=== PATIENT | male | born 1960 | race Caucasian/White ===

== ENCOUNTER 2017-07-05 13:32 | Emergency (ER) | payer OTHER, MEDICARE ==
[~2017-07-05] VITALS: Ht 172.7 cm; Wt 131.5 kg
[~2017-07-05 13:32] MED LIST: AMLODIPINE-VALS1 TA1 PO; AMOXIL500 MG PO; AUGMENTIN 875 M1 TAB PO; CHERATUSSIN AC120 ML PO; CRESTOR20 M2 PO; CYCLOBENZAPRINE10 M1 PO; DILAUDID2 MG PO; DUONEB 3 MG/3 ML3 ML INH/SOL; ELIQUIS5 M1 PO; FENOFIBRATE160 M1 PO; FLEXERIL10 MG PO; KEFLEX500 MG PO; LANTUS100 U/ML SC; LASIX20 MG PO; LEVEMIR FL100 UNIT/1 SC; LOVAZA1 G1 PO; LYRICA100 M1 PO; NIASPAN1000 M1 PO; NORCO 325 MG-51 TAB PO; NORFLEX100 MG PO; PERCOCET 325 MG1 TAB PO; PERCOCET 5-3251 EACH PO; VICODIN5-300 PO; WARFARIN SODIUM1 MG PO; ZOFRAN ODT4 M1 PO; ZOFRAN ODT4 MG SL
[2017-07-05 13:36] VITALS: BP 125/80
--- NOTE | 2017-07-05 14:43 | RADIOLOGY REPORT ---
EXAMINATION: XR SHOULDER, LEFT CLINICAL INFORMATION: Left shoulder pain status post injury. COMPARISON: None TECHNIQUE: AP internal rotation, Grashey, and scapular Y views (4 images) of the left shoulder. FINDINGS: No fracture is identified. There are marginal osteophytes involving the glenohumeral joint, most prominent at the inferomedial humeral head. There is moderate inferior subluxation of the humeral head which may be related to capsular laxity and possibly muscle weakness. The visualized muscles do appear to be atrophied. This can also be related to a significant joint effusion but there is no evidence to suggest an effusion. There are mild degenerative changes of the acromioclavicular joint. IMPRESSION: No acute fracture. 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 Moderate inferior subluxation of the humeral head which may be secondary to capsular laxity and possibly muscle weakness.
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
[2017-07-05] MEDS ORDERED: MOBIC15 M1 PO (15:49)
[2017-08-20] MEDS ORDERED: COLACE100 M1 PO (01:42)
== END 2017-07-05 16:07 ==
LOC: ERH 13:32
DX: M25.512 Pain in left shoulder (principal)
CPT/HCPCS: 73030-LT

== ENCOUNTER 2017-10-07 03:30 | Inpatient (IN) | payer OTHER, MEDICARE ==
[~2017-10-07] VITALS: Ht 172.7 cm; Wt 117.9 kg
[~2017-10-07 03:30] MED LIST changes: +COLACE100 M1 PO; +MOBIC15 M1 PO
[2017-10-07 04:06] LABS: ABSOLUTE BASOPHIL COUNT 0 /CUMM (0.0-0.2); ABSOLUTE EOSINOPHIL COUNT 0 /CUMM (0.0-0.7); ABSOLUTE LYMPH COUNT 1.6 /CUMM (1.2-3.4); ABSOLUTE MONOCYTE COUNT 0.6 /CUMM (0.10-0.60); BASOPHIL % 0.3 % (0.0-2.0); EOSINOPHIL % 0.3 % (0-5); GRANULOCYTE % 80.4 % (42.2-75.2); HEMATOCRIT 29.8 % (42-52); MEAN CORPUSCULAR HGB 28.2 PG (27.0-31.0); MEAN CORPUSCULAR HGB CONC 33.7 G/DL (33.0-37.0); MEAN CORPUSCULAR VOLUME 83.7 FL (80.0-94.0); MEAN PLATELET VOLUME 7.9 FL (7.4-10.4); PLATELET COUNT 298 /CUMM (130-400); RED BLOOD CELL CT 3.56 /CUMM (4.70-6.10); WHITE BLOOD CELL COUNT 11.2 /CUMM (4.8-10.8)
[2017-10-07 04:12] LABS: PT 16.7 SEC (9.4-12.5); PTT 30 SEC (25-37)
--- NOTE | 2017-10-07 04:31 | ED GI/GU/ABDOMINAL COMPLAINT ---
See Addendum History of Present Illness General Chief Complaint: General Adult Stated Complaint: DIARRHEA WITH BLOOD IN STOOL Source: patient, family, old records Exam Limitations: no limitations Vital Signs & Intake/Output Vital Signs & Intake/Output Vital Signs Date Time Temp Pulse Resp B/P B/P Pulse O2 O2 Flow FiO2 Mean Ox Delivery Rate 10/07 0332 98.3 85 18 106/65 99 Room Air Allergies Coded Allergies: morphine (Intermediate, WIERD FEELING 09/23/15) Reconcile Medications AMLODIPINE/VALSARTAN/HCTHIAZID (Sljts-Glvqf-Neni 10-160-25 MG) (Unknown Strength ) TABLET (Unknown Dose) PO DAILY BP (Reported) Apixaban (Eliquis) 5 MG TABLET 1 TAB PO BID BLOOD THINNER (Reported) Docusate Sodium (Colace) 100 MG CAPSULE 1 CAP PO BID constipation FENOFIBRATE NANOCRYSTALLIZED (Fenofibrate) 145 MG TABLET 1 TAB PO DAILY TRIG (Reported) Furosemide (Lasix) 20 MG TAB 1 TAB PO BID PRN LOWER EXTREMITY SWELLING TAKE 1 PILL TWICE A DAY ON THE FIRST DAY, AND THEN ONCE A DAY NEEDED FOR SWELLING OF THE LEGS. Furosemide (Lasix) 20 MG TAB 1 TAB PO DAILY EDEMA HYDROMORPHONE HCL (Dilaudid) 2 MG TABLET 1-2 TAB PO Q6P PRN severe pain HYDROMORPHONE HCL (Dilaudid) 2 MG TABLET 1 TAB PO Q6HR PRN PAIN Insulin Detemir (Levemir Flextouch) 100 UNIT/1 ML INSULN.PEN 35 U SC DAILY DIABETES (Reported) Insulin Glargine, Recombinan (Lantus) 100 U/ML KAREN 22 U SC DAILY DIABETES ( Reported) Meloxicam (Mobic) 15 MG TABLET 1 TAB PO DAILY PRN PAIN Niacin [address] 1 TAB PO DAILY SUPPLEMENT (Reported) Znkpl-3-Mugn Ethyl Esters (Lovaza) 1 GRAM CAPSULE 2 CAP PO BID SUPPLEMENT ( Reported) Ondansetron (Zofran Odt) 4 MG TAB.RAPDIS 1 TAB PO 4 TIMES/DAY PRN NAUSEA Orphenadrine Citrate (Norflex) [address] 1 TAB PO BID PRN BACK PAIN OXYCODONE HCL/ACETAMINOPHEN (Percocet 10-325 MG Tablet) 325 MG/10 MG TAB 1 TAB PO Q8 PRN PAIN Oxycodone HCl/Acetaminophen (Percocet 5-325 MG Tablet) 1 EACH TABLET 1 TAB PO 4 TIMES/DAY PRN PAIN TEN...[id number] Oxycodone HCl/Acetaminophen (Percocet 5-325 MG Tablet) 1 EACH TABLET 1 TAB PO Q6P PRN Severe pain Pregabalin (Lyrica) 100 MG CAPSULE 1 CAP PO TID PAIN (Reported) Rosuvastatin Calcium (Crestor) 40 MG TAB 1 TAB PO DAILY CHOLESTEROL (Reported ) Warfarin Sodium 1 MG TABLET 4 MG PO DAILY BLOOD THINNER (Reported) Triage Note: PT BIBA FROM HOME C/O BLOOD IN STOOL X5 DAYS. PT STATES HE HAD A COLONOSCOPY WITH DR JOYEC 2 WEEKS PRIOR, AFTER D/C'ING BLOOD THINNERS 1 WEEK PRIOR. PT HAD 12 POLYPS REMOVED, FELT CONSTIPATED 1 WEEK LATER STARTED LINZESS AND SINCE THEN HAS HAD 4X EPISODES OF DIARRHEA PER DAY X4 DAYS. UPON ARRIVAL EMS STATED BSG 365, PT MEDICATED WITH 30UNITS OF LEVEMIR AT HOME 2 HRS PRIOR TO ARRIVAL PER PT. PTS VSS. PT STATES "DIZZINESS". Triage Nurses Notes Reviewed? yes Onset: 3 days Duration: day(s):, intermittent Timing: recent history Quality/Severity: moderate Radiation: no radiation Activities at Onset: rest Prior Abdominal Problems: none Past Sexual History: Unobtainable at this time No Modifying Factors: none Associated Symptoms: weakness HPI: 2 weeks prior to admission the patient had a colonoscopy with polyp removal. One day after the procedure he passed bright red blood per rectum and was instructed to stop eliquis until the bleeding stopped. The bleeding stopped 1 week prior to admission and he resumed eliquis. 3 days prior to admission report patient reports 4 episodes per day of bright red blood per rectum without stool. He complains of increasing fatigue and weakness. He denies fever chills nausea vomiting diarrhea abdominal pain chest pain cough shortness breath headache dysuria rash. Past History Travel History Traveled to [place] past 21 day No Medical History Any Pertinent Medical History? 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 No Review of Systems Review of Systems Constitutional: Reports: see HPI, weakness. EENTM: Reports: no symptoms. Respiratory: Reports: no symptoms. Cardiovascular: Reports: no symptoms. GI: Reports: see HPI, bloody stool. Genitourinary: Reports: no symptoms. Musculoskeletal: Reports: no symptoms. Skin: Reports: no symptoms. Neurological/Psychological: Reports: no symptoms. Hematologic/Endocrine: Reports: no symptoms. Immunologic/Allergic: Reports: no symptoms. All Other Systems: Reviewed and Negative Physical Exam Physical Exam General Appearance: well developed/nourished, alert, awake, moderate distress, obese Head: atraumatic, normal appearance Eyes: Bilateral: normal appearance, PERRL, EOMI, other (pale conjunctiva). Ears, Nose, Throat, Mouth: hearing grossly normal, dry mucous membranes Neck: normal inspection, supple, full range of motion, normal alignment Respiratory: normal breath sounds, chest non-tender, no respiratory distress, quiet respiration, lungs clear Cardiovascular: regular rate/rhythm, normal peripheral pulses, norml femoral pulses equa Peripheral Pulses: 4+ carotid (R), 4+ carotid (L) Gastrointestinal: normal bowel sounds, soft, non-tender, no organomegaly Male Genitals: normal genitalia Back: normal inspection, normal range of motion, no vertebral tenderness Extremities: normal range of motion, no ligament instability Neurologic/Psych: awake, alert, oriented x 3, triage nurse II-XII nml as tested, motor/ sensory deficits (;eft upper extremity) Skin: intact, normal color, warm/dry Core Measures ACS in differential dx? No Sepsis Present: No Sepsis Focused Exam Completed? No Progress Differential Diagnosis: gastritis, PUD/GERD, polypectomy site bleeding Plan of Care: Orders Procedure Date/time Status Nothing by Mouth 10/07 B Active CBC WITHOUT DIFFERENTIAL 10/07 1200 Active OXYGEN SETUP (GEN) 10/07 513 Active Saline Lock 10/07 513 Active Activity/Ambulation 10/07 513 Active Code Status 10/07 513 Active Pathway - chart 10/07 512 Active BLOOD PRODUCT PICKUP 10/07 501 Active Lab Add-on Test 10/07 499 Active Patient Data 10/07 0444 Active Add-on Test (ER Only) 10/07 436 Active Admit to inpatient 10/[address] ABD & PELVIS ANGIOGRAM 10/08 431 Active FRESH FROZEN PLASMA 10/07 421 Active GLYCOSYLATED HGB 10/07 344 Active TYPE & SCREEN (NOT X-MATCH) 10/07 344 Complete EKG 10/08 339 Active Intake & Output 10/08 335 Active PARTIAL THROMBOPLASTIN TIME 10/08 335 Complete PROTHROMBIN TIME 10/08 335 Complete COMPREHENSIVE METABOLIC PANEL 10/08 335 Active CBC WITHOUT DIFFERENTIAL 10/08 335 Complete FingerStick- Glucose 10/08 331 Active House Staff 10/07 UNK Active VTE Mechanical Prophylaxis 10/07 UNK Active Vital Signs 10/07 UNK Active Intake & Output 10/07 UNK Active Hemoccult 10/07 UNK Active Current Medications Sig/Rey Start time Last Medication Dose Stop Time Status Admin Pantoprazole Sodium 40 MG DAILY 10/07 09 UNVr (Protonix) Dextrose/Sodium 1,000 ML .Q8H 10/07 08 UNVr Chloride 10/07 2359 (D5W-1/2 Normal Saline 1000ML) Acetaminophen 650 MG Q6P PRN 10/07 514 UNVr (Tylenol) Acetaminophen 1,000 MG Q6 PRN 10/07 514 UNVr (Ofirmev) Laboratory Tests 10/07/17344: Anion Gap 11, Estimated GFR > 60, BUN/Creatinine Ratio 30.8 H, Glucose 295 H, Hemoglobin A1c Pending, Calcium 8.6, Total Bilirubin 0.3, AST 12 L, ALT 26, Alkaline Phosphatase 34, Total Protein 5.1 L, Albumin 3.0 L, Globulin 2.1, Albumin/Globulin Ratio 1.4, PT 16.7 H, INR 1.53 H, APTT 30, CBC w Diff NO MAN DIFF REQ, RBC 3.56 L, MCV 83.7, MCH 28.2, MCHC 33.7, RDW 14.0, MPV 7.9, Gran % 80.4 H, Lymphocytes % 13.9 L, Monocytes % 5.1, Eosinophils % 0.3, Basophils % 0.3, Absolute Granulocytes 9.0 H, Absolute Lymphocytes 1.6, Absolute Monocytes 0.6, Absolute Eosinophils 0, Absolute Basophils 0 Initial ED EKG: normal axis, normal intervals, normal p-waves, normal QRS complex, normal sinus rhythm, no ST T wave changes Prior EKG: unchanged Rhythm Strip: normal sinus rhythm Departure Departure Disposition: STILL A PATIENT Condition: Stable Clinical Impression Primary Impression: Lower GI bleeding Secondary Impressions: Medication induced coagulopathy, Symptomatic anemia Referrals: Chelsi Schwartz APRN (PCP/Family) Departure Forms: Customer Survey General Discharge Information Admission Note Spoke With: Cj Garcia MD Documentation of Exam: Documentation of any treatments & extenuating circumstances including Concerns Regarding Discharge (functional status, medication knowledge or non-compliance, living conditions, etc.) that warrant an admission rather than observation: Serial lab exam transfusion FFP IV Protonix nothing by mouth medication adjustment GI evaluation continuing care discharge planning Critical Care Note Critical Care Note Critical Care Time: 30-74 min (35)
--- NOTE | 2017-10-07 05:15 | History & Physical ---
Pham[facility]uz 10/07/17 0514: General Information and HPI MD Statement: I have seen and personally examined NICKIE HERMAN and documented this H& P. The patient is a 57 year old M who presented with a patient stated chief complaint of [Lower GI Bleed]. Source of Information: patient, old records Exam Limitations: no limitations History of Present Illness: Mr. Herman is a 57yo M w/ PMH of CVA w/ residual LUE weakness in 2008, CAD s /p PCI w/o stent? in 2007, Hx of A-fib now controlled, T2DM, HTN, HLD, right sided Nephrolithiasis s/p Lithrotripsy in 2010, BIBA from home cc of intermittent bloody stool x 10 days. Patient had recent colonoscopy from Dr. Cuevas on 09/25/2017 w/ 12 polyps removed with pathology showing mostly tubular adenoma w/o evidence of invasive CA, and had mild diverticulosis & reflux esophagitis, possible gastroparesis. Patient held his eliquis 2 days prior the colonoscopy and 2 more days s/p colonoscopy. Patient started noticing BRBPR/dark stools on/off since 09/27/2017, without any associated ab pain or symptoms as ROS below. Patient started to having dizziness the night before ER, and had a fell at home, unwitnessed however no LOC/hitting head, and got back up and went ot commode however hard to get up from commode. Girlfriend at bedside stated that he had again BRBPR without any solid stool in commode. Patient last had BM around 2 days ago with mostly dark stool. At baseline patient was having constipation and had been use colace/fleet enema, and recently started on Linzess s/p colonoscopy. Patient denied use of NSAIDs. He was using percocet for hip pain (no cartilage) but stopped awhile ago. -Baselines: Ambulate freely w/ some gait abrnomality from CVA however no cane/ walker needed During our clinical interaction, patient denied recent travel/sick contacts, fever/diaphoresis/night sweat/weight change/cough/SOB/Chest Pain/Palpitation/ Abdominal pain/urinary abnormality, or other skin/musculoskeletal/neurological/ mood disorders, or dietary/appetite change. -Smoking: Denied -Alcohol: 3/week mostly beer -Rec Drugs: denied -Outpt physicians: Seeing PCP, Dr. Mcelroy for heart, Dr. Griffiths for DM, and Dr. Cuevas for GI -Daytime meds: took all meds. He was foudn to have hyperglycemia prior arrival and he took his Levelmir 30u around 0200 prior ER. 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 Exam & Diagnostic Data Last 24 Hrs of Vital Signs/I&O Vital Signs Date Time Temp Pulse Resp B/P B/P Pulse O2 O2 Flow FiO2 Mean Ox Delivery Rate 10/07 0332 98.3 85 18 106/65 99 Room Air Intake & Output 10/07 0800 08/05 0000 08/ 1600 Intake Total Output Total Balance Patient 131.542 kg Weight Weight Reported by Patient Measurement Method Physical Exam General Appearance Alert, Oriented X3, Cooperative, No Acute Distress Skin No Rashes, No Breakdown, No Significant Lesion Skin Temp/Moisture Exam: Warm/Dry Sepsis Skin Exam (color): Normal for Ethnicity HEENT Atraumatic, PERRLA, EOMI, mucous dry Neck Supple Cardiovascular Regular Rate, Normal S1, Normal S2 Lungs Clear to Auscultation, Normal Air Movement Abdomen Normal Bowel Sounds, Soft, No Tenderness, No Hepatospenomegaly, No Masses, obese ab Neurological Normal Speech, Normal Tone, Sensation Intact, LUE squeezing power is lacking however could lift LUE, at baseline other extremities WNL Extremities No Edema, Normal Pulses, No Tenderness/Swelling Rectal No Fissures, Guaiac positive w/ some dry blood stain, no active bleeding idenitified Last 24 Hrs of Labs/Ap: Laboratory Tests 10/07/17 0345: Anion Gap 11, Estimated GFR > 60, BUN/Creatinine Ratio 30.8 H, Glucose 295 H, Hemoglobin A1c Pending, Calcium 8.6, Total Bilirubin 0.3, AST 12 L, ALT 26, Alkaline Phosphatase 34, Total Protein 5.1 L, Albumin 3.0 L, Globulin 2.1, Albumin/Globulin Ratio 1.4, PT 16.7 H, INR 1.53 H, APTT 30, CBC w Diff NO MAN DIFF REQ, RBC 3.56 L, MCV 83.7, MCH 28.2, MCHC 33.7, RDW 14.0, MPV 7.9, Gran % 80.4 H, Lymphocytes % 13.9 L, Monocytes % 5.1, Eosinophils % 0.3, Basophils % 0.3, Absolute Granulocytes 9.0 H, Absolute Lymphocytes 1.6, Absolute Monocytes 0.6, Absolute Eosinophils 0, Absolute Basophils 0 Assessment/Plan Assessment: On admission, Vitals: Stable afebrile, HR 85, RR 18, BP 106/65, 99% RA Physical exam as above -CBC: Mild leukocytosis 11.2, H/H 10/29.8 (Baseline 15.6 in 09/2017), PLT 298 -CMP: Hyperglycemia 295, BUN 37, Cr 1.2 -PT/INR/DDimer: 16.7/1.53 -UA/Microbiology: Stool cultured Salmonella in 2010 -Imagings: CTA AB: NO acute vascular malformation or identifiable source of active bleeding. See radiology report. -EKG: NSR w/o significant ST-T abnormalities. -Last Echo: remotely in 2007 moderate left ventricular hypertrophy with a normal ejection fraction. -Interventions in ER: Vitamin K 10mg IM x 1, NS x 1 Problem list/Assessment/Hospital Course: #Lower GI bleed w/ symptomatic acute normacytic anemia #Hyperglycemia 2/2 T2DM, not HHS/DKA #Colonic tubular adenoma w/ sigmoid diverticulosis #PMH of CVA, CAD, Hx of A-fib on Anticogulant, T2DM, HTN, HLD, right sided Nephrolithiasis s/p Lithrotripsy in 2010 Patient's GI bleed more likely 2/2 lower GI w/ signs of BRBPR and acute anemia as shown in lab, though upper GI bleed may result in dark stool and would need rule out. CTA had negative findings and would not warrant any urgent cauterization at this point, however further GI eval would be needed, eg. possible repeat colonoscopy. Patient's Eliquis may have contributed to the bleeding especially s/p colonoscopy. Would treat supportive for now. Patient's INR is slightly above normal range without clear etiology, despite not being on coumadin any more. Vitamin K was given and FFP was ordered for 2U, would give 1U for now and observe. - Admit to general medicine - Vitals per protocol, monitor I&O per protocol. - Type and crossed. Would transfuse 1U FFP for now. - Patient had underlying hx of CAD, would keep Hgb >8 for transfusion indication. - O2 if needed. Currently stable under RA. - Would recheck HbA1c. - Would start on Novolin SS/AccuChek q 6. Patient had already taken levemir 30U at 0200 this morning. Will start 7U BID starting 10/08. - Avoid all NSAIDs - Would start Protonix IV daily. - Continue home meds, except holding eliquis/aspirin. - Be cautious on HTN meds as patient was taking more than 1. Advised nursing staff to check BP before giving all anti-HTN meds at once. - Keep NPO for now pending possible procedures if any. - Would give NS Bolus x 1 for now, and then continuous D5W 1/2 due to underlying T2DM. - Pending GI Consult in the AM. - Would recheck CBC q8 hrs, next set ordered at 1200. - Pain w/ Tylenol PO/IV for now per pathway. DVT prophylaxis Only ALPS NPO for now IV Access: Peripheral IV Full Code As Ranked By This Provider Problem List: 1. GI bleed Core Measures/Misc (11/19) Acute Coronary Syndrome ACS Diagnosis: No Congestive Heart Failure Congestive Heart Failure Diagnosis No Cerebrovascular Accident CVA/TIA Diagnosis: No VTE (View Protocol) VTE Risk Factors Age>40 No Mechanical VTE Prophylaxis d/t N/A MechProphylax Ordered No VTE Pharm Prophylaxis d/t Bleeding (Active) Sepsis (View protocol) Sepsis Present: No If YES complete Sepsis Event Note If YES complete Sepsis Event Note Cj Garcia MD 10/07/17 0730: General Information and HPI Statement: I have seen and personally examined NICKIE HERMAN and documented this H& P. The patient is a 57 year old M who presented with a patient stated chief complaint of [GI bleed]. Source of Information: patient Exam Limitations: no limitations Allergies/Medications Allergies: Coded Allergies: morphine (Intermediate, WIERD FEELING 09/23/15) Home Med list Apixaban (Eliquis) 5 MG TABLET 1 TAB PO BID BLOOD THINNER (Reported) Aspirin (Ecotrin*) 81 MG TABLET.DR 1 TAB PO DAILY heart (Reported) Chlorthalidone 50 MG TABLET 1 TAB PO DAILY HTN (Reported) Dapagliflozin Propanediol (Farxiga) 5 MG TABLET 1 TAB PO DAILY DM (Reported) Docusate Sodium (Colace) 100 MG CAPSULE 1 CAP PO BID constipation Dulaglutide (Trulicity) 1.5 MG/0.5 ML PEN.INJCTR 1 DOSE INJ Q WEEK DM ( Reported) Fenofibrate 160 MG TABLET 1 TAB PO DAILY HLD (Reported) Hydralazine HCl 25 MG TABLET 3 TAB PO BID HTN (Reported) Insulin Detemir (Levemir Flextouch) 100 UNIT/1 ML INSULN.PEN 30 U SC DAILY DIABETES (Reported) Metformin HCl (Glucophage) 1,000 MG TABLET 1 TAB PO BID DM (Reported) Na Phos,M-B/Na Phos,Di-Ba (Fleet Enema) 19 GRAM-7 GRAM/118 ML ENEMA 1 E RC DAILY PRN Constipation (Reported) Niacin (Niaspan) 1,000 MG TAB.ER.24H 1 TAB PO QPM HLD (Reported) Nifedipine (Nifedipine ER) 60 MG TAB.ER.24 1 TAB PO DAILY HTN (Reported) [id number] Ethyl Esters (Lovaza) 1 GRAM CAPSULE 2 CAP PO BID SUPPLEMENT ( Reported) Pregabalin (Lyrica) 100 MG CAPSULE 1 CAP PO BID Leg burning/Neuropathy ( Reported) Rosuvastatin Calcium (Crestor) 20 MG TABLET 1 TAB PO DAILY HLD (Reported) Valsartan 160 MG TABLET 1 TAB PO DAILY HTN (Reported) Past History Medical History Neurological: CVA EENT: glaucoma Cardiovascular: hypertension, hyperlipidemia Gastrointestinal: lower GI bleed Renal: hematuria, KIDNEY STONES Musculoskeletal: ARTHRITIS R HIP PAIN Endocrine: diabetes Surgical History Surgical History: LITHOTRIPSY Past Family/Social History Psychosocial History Smoking Status: Never Smoked ETOH Use: occasional use (3 time per week) Illicit Drug Use: denies illicit drug use Employment History Employment Disability Review of Systems Review of Systems Constitutional: Reports: see HPI. Exam & Diagnostic Data Last 24 Hrs of Vital Signs/I&O Vital Signs Date Time Temp Pulse Resp B/P B/P Pulse O2 O2 Flow FiO2 Mean Ox Delivery Rate 10/07 0622 97.8 79 20 120/66 97 10/07 0559 98.2 82 20 99/55 98 Room Air 10/07 0332 98.3 85 18 106/65 99 Room Air Intake & Output 10/07 0800 08 0000 10/06 1600 Intake Total Output Total Balance Patient 253 lb Weight Weight Bed scale Measurement Method Physical Exam General Appearance Alert, Oriented X3, Cooperative, No Acute Distress Skin No Rashes, No Breakdown, No Significant Lesion Skin Temp/Moisture Exam: Warm/Dry Sepsis Skin Exam (color): Normal for Ethnicity HEENT Atraumatic, PERRLA, EOMI Neck Supple Lymphatic Axillary nl, Cervical nl Cardiovascular Regular Rate, Normal S1, Normal S2 Lungs Clear to Auscultation, Normal Air Movement Abdomen Normal Bowel Sounds, Soft, No Tenderness, No Hepatospenomegaly Neurological Normal Speech, LUE squeezing power is lacking however could lift LUE, at baseline other extremities WNL Extremities No Edema, Normal Pulses, No Tenderness/Swelling Sepsis Peripheral Pulse Location: Dorsalis Pedis Sepsis Peripheral Pulse Exam: Normal Sepsis Cap Refill Exam: <2 Sec Last 24 Hrs of Labs/Ap: Laboratory Tests 10/07/17 0345: Anion Gap 11, Estimated GFR > 60, BUN/Creatinine Ratio 30.8 H, Glucose 295 H, Hemoglobin A1c Pending, Calcium 8.6, Total Bilirubin 0.3, AST 12 L, ALT 26, Alkaline Phosphatase 34, Total Protein 5.1 L, Albumin 3.0 L, Globulin 2.1, Albumin/Globulin Ratio 1.4, PT 16.7 H, INR 1.53 H, APTT 30, CBC w Diff NO MAN DIFF REQ, RBC 3.56 L, MCV 83.7, MCH 28.2, MCHC 33.7, RDW 14.0, MPV 7.9, Gran % 80.4 H, Lymphocytes % 13.9 L, Monocytes % 5.1, Eosinophils % 0.3, Basophils % 0.3, Absolute Granulocytes 9.0 H, Absolute Lymphocytes 1.6, Absolute Monocytes 0.6, Absolute Eosinophils 0, Absolute Basophils 0 Core Measures/Misc (11/19) Sepsis (View protocol) If YES complete Sepsis Event Note If YES complete Sepsis Event Note Attending MD Review Statement Attending Statement Attending MD Statement: examined this patient, discuss w/resident/PA/CLINICAL PATHOLOGIST, agreed w/resident/PA/CLINICAL PATHOLOGIST, reviewed EMR data (avail), amended to note Attending Assessment/Plan: This patient is a 57-year-old male with a significant past medical history for CVA w/ residual LUE deficit in 2008, CAD s/p PCI w/o stent? in 2007, A. fib, diabetes, hypertension, hyperlipidemia, right sided Nephrolithiasis s/p Lithrotripsy in 2010, BIBA from home with intermittent bloody stool x 10 days. He underwent a colonoscopy with Dr. Cuevas on 09/25/2017, 12 polyps removed. He held his eliquis 2 days prior the colonoscopy and 2 more days s/p colonoscopy. Patient started noticing BRBPR/dark stools on/off since 09/27/2017. The patient started to having dizziness 1 day prior to admission, had a fall at home, unwitnessed, and got back up and went to the commode. Girlfriend at bedside stated that he had again BRBPR without any solid stool in commode. While emergency department the patients vital signs were stable, Mild leukocytosis 11.2, H/H 10/29.8 (Baseline 15.6 in 09/2017), PLT 298, PT/INR/DDimer: 16.7/1.53, CTA AB: No acute vascular malformation or identifiable source of active bleeding. EKG: NSR w/o significant ST-T abnormalities. Admit to general medicine for acute blood loss anemia, further GI evaluation with possible repeat colonoscopy, NPO, hold anticoagulants, insulin coverage and follow H&H.
--- NOTE | 2017-10-07 05:51 | CT SCAN REPORT ---
EXAMINATION: CT ANGIOGRAM ABDOMEN AND PELVIS CLINICAL INFORMATION: Status post colonoscopy on Eliquis with bright red blood per rectum x3 days. COMPARISON: CT dated 08/19/2017. TECHNIQUE: Multiple axial images were obtained through the abdomen and pelvis following the administration of 100 mL of Optiray 320 intravenous contrast. Images were reviewed on a dedicated 3-D workstation (both MIP and volume rendered). DLP: 851 mGy-cm FINDINGS: Vasculature: Abdominal aorta is normal in caliber. Mild calcific atherosclerosis is present within the abdominal aorta and iliac arteries. The celiac axis, common hepatic artery, splenic artery, and left gastric artery are patent. Calcific atherosclerosis is present in the splenic artery. The SMA and its distal branches are patent. SURJIT is also patent. No abnormal vascular findings are present in the peripheral small bowel vasculature. There are 2 renal arteries bilaterally which are widely patent without significant stenoses. Iliac arteries are widely patent without ectasia and mild calcific atherosclerosis is present at the common femoral arteries bilaterally. IVC and portal vasculature are unremarkable. Nonvascular findings: Lung bases are clear. Heart is normal in size. Liver is normal in size and attenuation without focal lesions. No biliary ductal dilatation. A small 4 mm calcified gallstone is present dependently in the gallbladder. Gallbladder is normal in appearance without evidence of cholecystitis. Appendix, spleen, and adrenal glands are normal in appearance. 2 punctate calculi are present in the right lower renal pole. No obstructing calculi. Bilateral renal cysts are unchanged. Kidneys enhance symmetrically. No perinephric stranding. No hydronephrosis or nephrolithiasis. Bladder is normal in appearance. Stomach, small bowel, and colon are normal in caliber. No bowel wall thickening or surrounding inflammatory changes. Appendix is normal. No intraperitoneal free fluid or free air. No adenopathy. Prostate gland is normal in size. No abdominal wall hernias are identified. Mild degenerative disc disease is present in the lower lumbar spine and, to a greater extent, in the lower thoracic spine. There is moderate to severe osteophytosis in both hips bilaterally. Multiple old healed left rib fractures are again noted. IMPRESSION: 1. No acute intra-abdominal or intrapelvic abnormalities. Abdominal vasculature is patent without aneurysmal dilatation or appreciable malformations. No clear sites of acute bleeding are identified on the CTA. 2. Cholelithiasis. No evidence of acute cholecystitis. 3. Nonobstructing right nephrolithiasis. Renal cysts are unchanged.
[2017-10-07 06:22] VITALS: BP 120/66
[2017-10-07] MEDS ORDERED: GLUCOPHAGE1000 M1 PO (06:29)
[2017-10-07] MEDS ORDERED: ASPIRIN EC81 M1 PO (06:29)
[2017-10-07] MEDS ORDERED: NIFEDIPINE ER60 M2 PO (06:29)
[2017-10-07] MEDS ORDERED: CHLORTHALIDONE50 M1 PO (06:30)
[2017-10-07] MEDS ORDERED: FARXIGA5 M1 PO (06:30)
[2017-10-07] MEDS ORDERED: HYDRALAZINE HCL25 M1 PO (06:30)
[2017-10-07] MEDS ORDERED: VALSARTAN160 M1 PO (06:30)
[2017-10-07] MEDS ORDERED: TRULICITY1.5 MG/0.5 INJ (06:31)
[2017-10-07] MEDS ORDERED: COLACE100 M1 PO (06:32)
[2017-10-07] MEDS ORDERED: FLEET ENEMA133 ML RC (06:32)
--- NOTE | 2017-10-07 07:19 | Cons- Gastroenterology ---
General Information and HPI Consulting Request Date of Consult: 10/07/17 Requested By: Cj Garcia MD Reason for Consult: Hematochezia, anemia, and change in bowel habits. Source of Information: patient, old records Exam Limitations: no limitations History of Present Illness: Mr. Taylor is a 57 year old male on anticoagulation for afib who underwent a colonoscopy on September 25 who presented to early today with reports of rectal bleeding. He called the office a few days after the colonoscopy (09/27) to report some rectal bleeding at which point he was told to hold his anticoagulation for a few more days and to go to the ER if the bleeding became more profuse or if he developed black tarry stool. The bleeding did resolve with temporarily stopping the anticoagulation and he subsequently restarted it about 3-4 days ago and this morning and yesterday he began having more profuse bleeding which prompted him to come to the ER early this morning. He notes the blood he is passing is red with clots and that he has not had any black tarry stool although it has been dark at times. He also notes that he had been constipated for which he took linzess which at first led to a regular bowel movement that was brown in color but for the past 36 hours he states for the most part he is just passing blood. In spite of passing blood he did take his Eliquis last night. He complains of some lightheadness, but he has not had any loss of consciousness and he is without any SOB or chest pain. He has also been without abdominal pain with eating or with his bowel movements and he is without any heartburn, dysphagia or hematemsis. In the ER he was hemodynamically stable , but he did have a few bloody bowel movements in the ER and a ct angiogram was negative for active bleeding. He was noted to have a fall in his hgb from 15 to 10 from when it was last checked about a month ago. He was typed and screened, but has not been transfused. FFP and vit K has been ordered though for a mildly elevated INR of 1.3. He was admitted to the medical service for further management and has been kept n.p.o. Since he has arrived to the floor he has not had any further bleeding which last occurred in the emergency room at about 2 this morning. Allergies/Medications Allergies: Coded Allergies: morphine (Intermediate, WIERD FEELING 09/23/15) Home Med List: Chlorthalidone 50 MG TABLET 1 TAB PO DAILY HTN (Reported) Dapagliflozin Propanediol (Farxiga) 5 MG TABLET 1 TAB PO DAILY DM (Reported) Docusate Sodium (Colace) 100 MG CAPSULE 1 CAP PO BID constipation Dulaglutide (Trulicity) 1.5 MG/0.5 ML PEN.INJCTR 1 DOSE INJ Q WEEK DM ( Reported) Fenofibrate 160 MG TABLET 1 TAB PO DAILY HLD (Reported) Hydralazine HCl 25 MG TABLET 3 TAB PO BID HTN (Reported) Insulin Detemir (Levemir Flextouch) 100 UNIT/1 ML INSULN.PEN 30 U SC DAILY DIABETES (Reported) Metformin HCl (Glucophage) 1,000 MG TABLET 1 TAB PO BID DM (Reported) Na Phos,M-B/Na Phos,Di-Ba (Fleet Enema) 19 GRAM-7 GRAM/118 ML ENEMA 1 E RC DAILY PRN Constipation (Reported) Niacin (Niaspan) 1,000 MG TAB.ER.24H 1 TAB PO QPM HLD (Reported) Nifedipine (Nifedipine ER) 60 MG TAB.ER.24 1 TAB PO DAILY HTN (Reported) [place]-3 Acid Ethyl Esters (Lovaza) 1 GRAM CAPSULE 2 CAP PO BID SUPPLEMENT ( Reported) Pregabalin (Lyrica) 100 MG CAPSULE 1 CAP PO BID Leg burning/Neuropathy ( Reported) Rosuvastatin Calcium (Crestor) 20 MG TABLET 1 TAB PO DAILY HLD (Reported) Valsartan 160 MG TABLET 1 TAB PO DAILY HTN (Reported) Current Medications: Current Medications Sig/Rey Start time Last Medication Dose Route Stop Time Status Admin Acetaminophen 650 MG Q6P PRN 10/07 0415 AC PO Acetaminophen 1,000 MG Q6 PRN 10/07 0515 AC IV Atorvastatin Calcium 80 MG 1700 10/07 1700 UNVr PO Chlorthalidone 50 MG DAILY 10/07 0900 UNVr PO Dextrose/Sodium 1,000 ML .Q8H 10/07 0800 DC Chloride IV 10/07 2359 Dextrose/Sodium 1,000 ML .Q8H 10/07 0615 UNVr Chloride IV 10/07 2214 Fenofibrate 160 MG DAILY 10/07 899 UNVr PO Hydralazine HCl 75 MG BID 10/07 899 UNVr PO Insulin Detemir 7 UNITS BID 10/08 899 UNVr SC Insulin Human Regular 0 Q6 10/07 614 UNVr SC Losartan Potassium 50 MG DAILY 10/07 899 UNVr PO Nifedipine 60 MG DAILY 10/07 899 UNVr PO Pantoprazole Sodium 40 MG DAILY 10/07 899 AC IV Phytonadione 10 MG ONCE ONE 10/070 DC 10/07 IM 10/07 430 0428 Phytonadione 0 .STK-MED ONE 10/07 426 DC .ROUTE Pregabalin 100 MG BID 10/07 899 UNVr PO Sodium Chloride 1,000 ML BOLUS ONE 10/07 614 UNVr IV 10/07 713 Past History Travel History Traveled to [place] past 21 day No Medical History Blood Transfusion Hx: No Neurological: CVA, falls due to unsteady gait EENT: glaucoma Cardiovascular: hypertension, hyperlipidemia Respiratory: NONE Gastrointestinal: NONE Hepatic: NONE Renal: hematuria, KIDNEY STONES Musculoskeletal: ARTHRITIS R HIP PAIN Psychiatric: NONE Endocrine: diabetes Blood Disorders: NONE Cancer(s): NONE 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 EENTM: Denies: no symptoms. Cardiovascular: Denies: no symptoms. Respiratory: Denies: no symptoms. GI: Reports: see HPI. Genitourinary: Denies: no symptoms. Musculoskeletal: Denies: joint pain, joint swelling, muscle pain. Skin: Denies: no symptoms. Neurological/Psychological: Reports: weakness. Hematologic/Endocrine: Reports: bleeding. Immunologic/Allergic: Denies: no symptoms. All Other Systems: Reviewed and Negative Exam & Diagnostic Data Vital Signs and I&O Vital Signs Date Time Temp Pulse Resp B/P B/P Pulse O2 O2 Flow FiO2 Mean Ox Delivery Rate 10/07 621 97.8 79 20 120/66 97 10/07 0559 98.2 82 20 99/55 98 Room Air 10/07 0332 98.3 85 18 106/65 99 Room Air Intake & Output 10/07 1600 10/07 0400 10/06 1600 10/06 0400 10/05 1600 10/05 0400 Intake Total Output Total Balance Patient 260 lb 290 lb Weight Weight Bed scale Reported by Patient Measurement Method Physical Exam General Appearance: well developed/nourished, no apparent distress, alert, awake , comfortable Head: atraumatic, normal appearance Eyes: Bilateral: normal appearance. Ears, Nose, Throat: normal pharynx, normal ENT inspection, hearing grossly normal Neck: normal inspection, supple, full range of motion Respiratory: normal breath sounds, chest non-tender, no respiratory distress Cardiovascular: regular rate/rhythm Gastrointestinal: normal bowel sounds, soft, non-tender, no organomegaly Rectal: deferred Back: normal inspection Extremities: normal inspection, no edema Neurologic/Psych: no motor/sensory deficits, awake, alert, oriented x 3 Skin: intact, normal color Results Pertinent Lab Results: Laboratory Tests 10/07 0345 Chemistry Sodium (137 - 145 mmol/L) 136 L Potassium (3.5 - 5.1 mmol/L) 3.8 Chloride (98 - 107 mmol/L) 102 Carbon Dioxide (22 - 30 mmol/L) 22 Anion Gap (5 - 16) 11 BUN (9 - 20 mg/dL) 37 H Creatinine (0.7 - 1.2 mg/dL) 1.2 Estimated GFR (>60 ml/min) > 60 BUN/Creatinine Ratio (7 - 25 %) 30.8 H Glucose (65 - 99 mg/dL) 295 H Hemoglobin A1c (4.2 - 5.8 %) Pending Calcium (8.4 - 10.2 mg/dL) 8.6 Total Bilirubin (0.2 - 1.3 mg/dL) 0.3 AST (17 - 59 U/L) 12 L ALT (21 - 72 U/L) 26 Alkaline Phosphatase (< 127 U/L) 34 Total Protein (6.3 - 8.2 g/dL) 5.1 L Albumin (3.5 - 5.0 g/dL) 3.0 L Globulin (1.9 - 4.2 gm/dL) 2.1 Albumin/Globulin Ratio (1.1 - 2.2 %) 1.4 Coagulation PT (9.4 - 12.5 SEC) 16.7 H INR (0.90 - 1.17) 1.53 H APTT (25 - 37 SEC) 30 Hematology CBC w Diff NO MAN DIFF REQ WBC (4.8 - 10.8 /CUMM) 11.2 H RBC (4.70 - 6.10 /CUMM) 3.56 L Hgb (14.0 - 18.0 G/DL) 10.0 L Hct (42 - 52 %) 29.8 L MCV (80.0 - 94.0 FL) 83.7 MCH (27.0 - 31.0 PG) 28.2 MCHC (33.0 - 37.0 G/DL) 33.7 RDW (11.5 - 14.5 %) 14.0 Plt Count (130 - 400 /CUMM) 298 MPV (7.4 - 10.4 FL) 7.9 Gran % (42.2 - 75.2 %) 80.4 H Lymphocytes % (20.5 - 51.1 %) 13.9 L Monocytes % (1.7 - 9.3 %) 5.1 Eosinophils % (0 - 5 %) 0.3 Basophils % (0.0 - 2.0 %) 0.3 Absolute Granulocytes (1.4 - 6.5 /CUMM) 9.0 H Absolute Lymphocytes (1.2 - 3.4 /CUMM) 1.6 Absolute Monocytes (0.10 - 0.60 /CUMM) 0.6 Absolute Eosinophils (0.0 - 0.7 /CUMM) 0 Absolute Basophils (0.0 - 0.2 /CUMM) 0 Imaging/Other Studies: SERVICE DATE: 10/07/17 EXAM TYPE: CAT - CT ABD & PELVIS ANGIOGRAM EXAMINATION: CT ANGIOGRAM ABDOMEN AND PELVIS CLINICAL INFORMATION: Status post colonoscopy on Eliquis with bright red blood per rectum x3 days. COMPARISON: CT dated 08/19/2017. TECHNIQUE: Multiple axial images were obtained through the abdomen and pelvis following the administration of 100 mL of Optiray 320 intravenous contrast. Images were reviewed on a dedicated 3-D workstation (both MIP and volume rendered). DLP: 851 mGy-cm FINDINGS: Vasculature: Abdominal aorta is normal in caliber. Mild calcific atherosclerosis is present within the abdominal aorta and iliac arteries. The celiac axis, common hepatic artery, splenic artery, and left gastric artery are patent. Calcific atherosclerosis is present in the splenic artery. The SMA and its distal branches are patent. SURJIT is also patent. No abnormal vascular findings are present in the peripheral small bowel vasculature. There are 2 renal arteries bilaterally which are widely patent without significant stenoses. Iliac arteries are widely patent without ectasia and mild calcific atherosclerosis is present at the common femoral arteries bilaterally. IVC and portal vasculature are unremarkable. Nonvascular findings: Lung bases are clear. Heart is normal in size. Liver is normal in size and attenuation without focal lesions. No biliary ductal dilatation. A small 4 mm calcified gallstone is present dependently in the gallbladder. Gallbladder is normal in appearance without evidence of cholecystitis. Appendix, spleen, and adrenal glands are normal in appearance. 2 punctate calculi are present in the right lower renal pole. No obstructing calculi. Bilateral renal cysts are unchanged. Kidneys enhance symmetrically. No perinephric stranding. No hydronephrosis or nephrolithiasis. Bladder is normal in appearance. Stomach, small bowel, and colon are normal in caliber. No bowel wall thickening or surrounding inflammatory changes. Appendix is normal. No intraperitoneal free fluid or free air. No adenopathy. Prostate gland is normal in size. No abdominal wall hernias are identified. Mild degenerative disc disease is present in the lower lumbar spine and, to a greater extent, in the lower thoracic spine. There is moderate to severe osteophytosis in both hips bilaterally. Multiple old healed left rib fractures are again noted. IMPRESSION: 1. No acute intra-abdominal or intrapelvic abnormalities. Abdominal vasculature is patent without aneurysmal dilatation or appreciable malformations. No clear sites of acute bleeding are identified on the CTA. 2. Cholelithiasis. No evidence of acute cholecystitis. 3. Nonobstructing right nephrolithiasis. Renal cysts are unchanged. Colonoscopy 09/25/17 There was a 6 mm sessile polyp in the sigmoid colon, a 1 cm pedunculated polyp in the descending colon and 4 other sessile polyps in the descending colon ranging in size from 5-8 mm, a 7 mm sessile polyp in the transverse colon, and a 7 mm sessile polyp in the cecum. All those polyps were removed with snare polypectomy monopolar cautery and retrieved to colonoscope and were sent to pathology for further evaluation. There is also a 3 mm sessile polyp in the transverse colon, a 4 mm sessile polyp at the hepatic flexure, a 2 mm sessile polyp at the hepatic flexure and a 3 mm sessile polyp in the cecum. All of those polyps were removed with multiple bites of a cold biopsy forceps and were sent to pathology for further evaluation. There was also a 1.5 cm benign lipoma which was biopsied with cold biopsy forceps revealing underlying adipose tissue and the pieces were sent to pathology for further evaluation. There were a few scattered diverticula appreciated in the sigmoid colon. The remainder of the visualized colonic mucosa was grossly unremarkable. There were no large polyps or masses appreciated. Retroflexed views in the rectum revealed small internal hemorrhoids. Impression: 1. A total of 12 polyps scattered throughout the colon status post removal via a combination of hot snare polypectomy and cold biopsy forceps. 2. Mild sigmoid diverticulosis. 3. Transverse colon lipoma status post biopsies. 4. Small internal hemorrhoids. A. TRANSVERSE COLON, BIOPSY: UNREMARKABLE COLONIC MUCOSA, AND SUBMUCOSA CONTAINING ADIPOSE TISSUE. NEGATIVE FOR EVIDENCE OF MALIGNANCY. B. TRANSVERSE COLON POLYP: FOCAL FEATURES OF TUBULAR ADENOMA, AND LYMPHOGLANDULAR COMPLEX. NEGATIVE FOR EVIDENCE OF INVASIVE CARCINOMA. C. TWO COLON POLYPS AT HEPATIC FLEXURE: EIGHT FRAGMENTS OF COLONIC MUCOSA, TWO SHOWING FEATURES OF TUBULAR ADENOMA. NEGATIVE FOR EVIDENCE OF INVASIVE CARCINOMA. D. TWO CECAL POLYPS: SEVEN PORTIONS OF COLONIC MUCOSA, MULTIPLE PORTIONS SHOWING FEATURES OF TUBULAR ADENOMA. NEGATIVE FOR EVIDENCE OF INVASIVE CARCINOMA. E. ASCENDING COLON POLYP: TUBULAR ADENOMA. NEGATIVE FOR EVIDENCE OF INVASIVE CARCINOMA. F. DESCENDING COLON POLYP: TUBULAR ADENOMA. NEGATIVE FOR EVIDENCE OF INVASIVE CARCINOMA. G. DESCENDING COLON POLYP: FOCAL FEATURES OF TUBULAR ADENOMA. NEGATIVE FOR EVIDENCE OF INVASIVE CARCINOMA. H. DESCENDING COLON POLYP: TUBULAR ADENOMA. NEGATIVE FOR EVIDENCE OF INVASIVE CARCINOMA. I1. DESCENDING COLON POLYP, 0.5 CM.: TUBULAR ADENOMA. NEGATIVE FOR EVIDENCE OF INVASIVE CARCINOMA. I2. DESCENDING COLON POLYP, 1.0 CM.: TUBULAR ADENOMA. NEGATIVE FOR EVIDENCE OF INVASIVE CARCINOMA. J. SIGMOID COLON POLYP: TUBULAR ADENOMA. NEGATIVE FOR EVIDENCE OF INVASIVE CARCINOMA. Endoscopy 09/25/17 Findings: Esophagus: The esophageal mucosa was grossly normal in appearance. The Z line was located at 43 cm from the incisors and was moderately erythematous with a few short erosions. Biopsies were obtained from the erythematous portion of the Z line with cold biopsy forceps and was sent to pathology for further evaluation. There were no esophageal masses, strictures, ulcers, varices, or long tongues of salmon colored mucosa appreciated. Stomach: There were a few linear erosions in the fundus/cardia which were appreciated on retroflexed views. Retroflexed views did not reveal a hiatal hernia. The remainder of the gastric mucosa was grossly normal in appearance. There were no ulcers or masses appreciated. Distention and peristalsis appeared normal, but there was a moderate amount of leftover bile. The pylorus was patent and easily traversible by the upper endoscope. Random biopsies were obtained from the antrum with cold biopsy forceps and were sent to pathology for further evaluation. Duodenum: The duodenal bulb was mildly erythematous, but there were no ulcers or erosions appreciated. The duodenal sweep and folds were grossly normal in appearance. Impression: 1. LA grade A reflux esophagitis status post biopsies. 2. Erosive gastritis in the fundus/cardia status post antral biopsies. 3. Suggestion of gastroparesis. 4. Nonerosive duodenitis. Assessment/Plan Assessment/Recommendations: Assessment: Mr. Taylor is a 57 year old male with intermittent hematochezia over the past week since having a colonoscopy with polypectomy which is most likely secondary to a post polypectomy bleed with the bleeding exacerbated by his anti-coagulation. I suspect that the polypectomy site that is bleeding is the 1 cm descending colon pedunculated polyp that was removed after reviewing his previous colonoscopy. He has dropped his hgb about 5 gms since it was last checked about a month ago, but as he has had intermittent bleeding through the week and he is currently hemodynamically stable I don't necessarily feel that the drop in his hgb all happended with this morning bleeding, but it certainly is possilble. His CTA was negative for active bleeding and I am hopeful that his bleeding will again stop with discontinuation of his anti-coagulation (which he took last night), but it may be necessary to repeat his colonoscopy or a sigmoidoscopy if the bleeding persists. It may also be reasonable to perform a procedure to place a clip or cauterize any vissible vessel depending on how urgent it is to re-start his anti-coagulation. As he is currently stable though I don't feel that a repeat colonoscopy is urgent. Of note, he is complaining of dizziness but he is not hypotensive and it is possible that some of that is secondary to anxiety. Recommendations: 1. Follow CBC q8hrs and tranfuse as needed to maintain his hgb > 8 or as per cardiology recommendations. 2. Hold all anticoagulation (INR only 1.53, but if bleeding persists and he was on coumadin as opposed to Eliquis it may then be reasonable to give FFP/vit K if the bleeding persists). 3. Notify GI for signs of hemodynamically significant bleeding and if that ensues would transfer the patient to the ICU for urgent endoscopic intervention. 4. D/C IV protonix and change to an oral PPI 5. Full liquid diet with nothing red ok for now, but would keep NPO after midnight in anticipation of possibly repeating a colonoscopy/flex sig tomorrow. 6. Maintain 2 large bore IVs at all times. 7. 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 I will continue to follow this patient and make further recommendations based on his clinical course and results of repeat blood work and any procedures that may be performed on this admission. Problem List: 1. AFIB ON COUMADIN 2. Lower GI bleeding 3. Symptomatic anemia Copies To: Chelsi Schwartz APRN; Lilibeth ASTORGA PHD,Yovany Martell Consult Acknowledgment - Thank you for your consult request.
--- NOTE | 2017-10-07 11:44 | PN- Att Addend ---
Attending Addendum Attending Brief Note No new complaints. No bleeding events reported. Vitals stable. GI noted. labs noted Physical Exam Alert, Oriented X3, Cooperative, No Acute Distress No Rashes, No Breakdown, No Significant Lesion Atraumatic, PERRLA, EOMI, mucous dry Regular Rate, Normal S1, Normal S2 Clear to Auscultation, Normal Air Movement Normal Bowel Sounds, Soft, No Tenderness, No Hepatospenomegaly, No Masses Normal Speech, Normal Tone, Sensation Intact, LUE squeezing power is lacking however could lift LUE, at baseline other extremities WNL No Edema, Normal Pulses, No Tenderness/Swelling Patient here for GI bleed with acute blood loss anemia. Patient GI consulted Dr Cuevas known patient to him and follow recommendations. Serial cbc monitoring and transfuse 1 prbc h/h 7-8. Continue plan of care as per admitting physician. Admission Lab Results I reviewed the following labs: Laboratory Tests 10/07 0345 Chemistry Sodium (137 - 145 mmol/L) 136 L Potassium (3.5 - 5.1 mmol/L) 3.8 Chloride (98 - 107 mmol/L) 102 Carbon Dioxide (22 - 30 mmol/L) 22 Anion Gap (5 - 16) 11 BUN (9 - 20 mg/dL) 37 H Creatinine (0.7 - 1.2 mg/dL) 1.2 Estimated GFR (>60 ml/min) > 60 BUN/Creatinine Ratio (7 - 25 %) 30.8 H Glucose (65 - 99 mg/dL) 295 H Hemoglobin A1c (4.2 - 5.8 %) Pending Calcium (8.4 - 10.2 mg/dL) 8.6 Total Bilirubin (0.2 - 1.3 mg/dL) 0.3 AST (17 - 59 U/L) 12 L ALT (21 - 72 U/L) 26 Alkaline Phosphatase (< 127 U/L) 34 Total Protein (6.3 - 8.2 g/dL) 5.1 L Albumin (3.5 - 5.0 g/dL) 3.0 L Globulin (1.9 - 4.2 gm/dL) 2.1 Albumin/Globulin Ratio (1.1 - 2.2 %) 1.4 Coagulation PT (9.4 - 12.5 SEC) 16.7 H INR (0.90 - 1.17) 1.53 H APTT (25 - 37 SEC) 30 Hematology CBC w Diff NO MAN DIFF REQ WBC (4.8 - 10.8 /CUMM) 11.2 H RBC (4.70 - 6.10 /CUMM) 3.56 L Hgb (14.0 - 18.0 G/DL) 10.0 L Hct (42 - 52 %) 29.8 L MCV (80.0 - 94.0 FL) 83.7 MCH (27.0 - 31.0 PG) 28.2 MCHC (33.0 - 37.0 G/DL) 33.7 RDW (11.5 - 14.5 %) 14.0 Plt Count (130 - 400 /CUMM) 298 MPV (7.4 - 10.4 FL) 7.9 Gran % (42.2 - 75.2 %) 80.4 H Lymphocytes % (20.5 - 51.1 %) 13.9 L Monocytes % (1.7 - 9.3 %) 5.1 Eosinophils % (0 - 5 %) 0.3 Basophils % (0.0 - 2.0 %) 0.3 Absolute Granulocytes (1.4 - 6.5 /CUMM) 9.0 H Absolute Lymphocytes (1.2 - 3.4 /CUMM) 1.6 Absolute Monocytes (0.10 - 0.60 /CUMM) 0.6 Absolute Eosinophils (0.0 - 0.7 /CUMM) 0 Absolute Basophils (0.0 - 0.2 /CUMM) 0 Admission Meds I reviewed the following Meds: Current Medications Sig/Rey Start time Last Medication Dose Stop Time Status Admin Acetaminophen 650 MG Q6P PRN 10/07 514 AC (Tylenol) Acetaminophen 1,000 MG Q6 PRN 10/07 514 AC (Ofirmev) Atorvastatin Calcium 80 MG 1700 10/07 1700 AC (Lipitor) Chlorthalidone 50 MG DAILY 10/07 899 AC 10/07 (Hygroton) 09 Fenofibrate 145 MG DAILY 10/07 899 AC 10/07 (Tricor) 09 Hydralazine HCl 75 MG BID 10/07 09 AC 10/07 (Apresoline) 0905 Insulin Detemir 7 UNITS BID 10/08 09 AC (Levemir) Insulin Human Regular 0 Q6 10/07 0515 AC 10/07 (NovoLIN R) 09 Losartan Potassium 50 MG DAILY 10/07 899 AC 10/07 (Cozaar) 904 Nifedipine 60 MG DAILY 10/07 899 AC 10/07 (Procardia XL) 905 Pantoprazole Sodium 40 MG DAILY 10/07 899 AC 10/07 (Protonix) 905 Pregabalin 100 MG BID 10/07 899 AC 10/07 (Lyrica) 908 Sodium Chloride 1,000 ML BOLUS ONE 10/07 614 CAN (Normal Saline 0.9%) 10/07 713
[2017-10-07 13:00] LABS: ABSOLUTE BASOPHIL COUNT 0 /CUMM (0.0-0.2); ABSOLUTE EOSINOPHIL COUNT 0.1 /CUMM (0.0-0.7); ABSOLUTE GRANULOCYTE CT 5.5 /CUMM (1.4-6.5); ABSOLUTE LYMPH COUNT 2.2 /CUMM (1.2-3.4); ABSOLUTE MONOCYTE COUNT 0.6 /CUMM (0.10-0.60); BASOPHIL % 0.4 % (0.0-2.0); EOSINOPHIL % 1.5 % (0-5); GRANULOCYTE % 64.7 % (42.2-75.2); HEMATOCRIT 25.5 % (42-52); MEAN CORPUSCULAR HGB 27.6 PG (27.0-31.0); MEAN CORPUSCULAR VOLUME 83.4 FL (80.0-94.0); MEAN PLATELET VOLUME 7.3 FL (7.4-10.4); PLATELET COUNT 253 /CUMM (130-400); RBC DISTRIBUTION WIDTH 14.3 % (11.5-14.5); RED BLOOD CELL CT 3.06 /CUMM (4.70-6.10); WHITE BLOOD CELL COUNT 8.5 /CUMM (4.8-10.8)
[2017-10-07 13:11] LABS: PT 13.8 SEC (9.4-12.5)
[2017-10-07 14:26] VITALS: BP 122/76
[2017-10-07 20:00] LABS: ABSOLUTE BASOPHIL COUNT 0 /CUMM (0.0-0.2); ABSOLUTE EOSINOPHIL COUNT 0.2 /CUMM (0.0-0.7); ABSOLUTE GRANULOCYTE CT 6.7 /CUMM (1.4-6.5); ABSOLUTE MONOCYTE COUNT 0.6 /CUMM (0.10-0.60); BASOPHIL % 0.5 % (0.0-2.0); HEMATOCRIT 24.7 % (42-52); MEAN CORPUSCULAR HGB CONC 33.3 G/DL (33.0-37.0); MEAN PLATELET VOLUME 7.4 FL (7.4-10.4); PLATELET COUNT 281 /CUMM (130-400); RBC DISTRIBUTION WIDTH 13.8 % (11.5-14.5); RED BLOOD CELL CT 2.94 /CUMM (4.70-6.10); WHITE BLOOD CELL COUNT 9.6 /CUMM (4.8-10.8)
[2017-10-07 23:03] VITALS: BP 132/65
[2017-10-08 02:48] LABS: ABSOLUTE BASOPHIL COUNT 0.1 /CUMM (0.0-0.2); ABSOLUTE EOSINOPHIL COUNT 0.2 /CUMM (0.0-0.7); ABSOLUTE GRANULOCYTE CT 5.6 /CUMM (1.4-6.5); ABSOLUTE LYMPH COUNT 2.7 /CUMM (1.2-3.4); ABSOLUTE MONOCYTE COUNT 0.5 /CUMM (0.10-0.60); BASOPHIL % 0.7 % (0.0-2.0); EOSINOPHIL % 2.2 % (0-5); GRANULOCYTE % 61.7 % (42.2-75.2); HEMATOCRIT 23.4 % (42-52); MEAN CORPUSCULAR HGB 28.3 PG (27.0-31.0); MEAN CORPUSCULAR HGB CONC 33.8 G/DL (33.0-37.0); MEAN CORPUSCULAR VOLUME 83.5 FL (80.0-94.0); MEAN PLATELET VOLUME 7.8 FL (7.4-10.4); PLATELET COUNT 261 /CUMM (130-400); RED BLOOD CELL CT 2.81 /CUMM (4.70-6.10); WHITE BLOOD CELL COUNT 9.1 /CUMM (4.8-10.8)
[2017-10-08 06:46] VITALS: BP 122/66
--- NOTE | 2017-10-08 07:44 | PN- Housestaff ---
Leonor Alvarez 10/08/17 0743: Subjective Follow-up For: GI Bleed Subjective: Afebrile overnight. Patient notes two episodes of BRBPR last night, at around 9 pm and 2 am. Patient notes no stool with his bowel movements and only has seen blood. Patient mentions he also experiences dizziness upon straining for his bowels. Patient notes he last had a colonoscopy with polypectomy with Dr. Cuevas two weeks ago and wanted to know if he would need another today. Patient spoke with Dr. Cuevas today and will go for a Sigmoidoscopy today. Patient otherwise denies any fevers, chills, fatigue, abdominal pain, dyspnea, and chest pain. Rapid response called approx. 10:40 - Patient has been getting Golytely for a prospective Sigmoidoscopy today and recently was experiencing dizziness, chest pressure located near the mid sternum, left arm weakness, and near syncope while having a bowel movement. Patient has been having BRBPR with each bowel movement without any stool present. Patient had Troponin, ECG, BEP, and 1 pRBC ordered. ECG normal compared to last. Patient will be transferred to Telemetry bed 189-2. Patient is followed by Dr. Mcelroy (Cardiology) and Dr. Cuevas (Gastroenterology) . Dr. Cuevas, if chest pain resolves and vitals are stable, will attempt to continue with the Sigmoidoscopy today to assess GI bleeding etiology. Review of Systems Constitutional: Reports: see HPI. Objective Last 24 Hrs of Vital Signs/I&O Vital Signs Date Time Temp Pulse Resp B/P B/P Pulse O2 O2 Flow FiO2 Mean Ox Delivery Rate 10/08 1051 98 Nasal 3.0L Cannula 10/08 0830 62 122/66 / 0829 62 122/66 / 0829 62 122/66 /06 0646 97.8 62 20 122/66 99 08/05 2303 97.9 90 18 132/65 100 Room Air 10/07 2056 85 110/68 08/05 1426 98.3 65 18 122/76 100 Intake & Output 10/08 1600 10/08 0800 08 0000 Intake Total 1000 100 Output Total Balance 1000 100 Intake, IV 1000 Intake, Oral 100 Number 2 1 Bowel Movements Patient 260 lb Weight Physical Exam General Appearance: Alert, Oriented X3, Cooperative, Mild Distress HEENT: Atraumatic Neck: Supple Cardiovascular: Regular Rate, Normal S1, Normal S2 Lungs: Clear to Auscultation Abdomen: Soft, No Tenderness Neurological: Normal Speech Assessment/Plan Assessment: Rapid response called approx. 10:40 10/08 - Patient has been getting Golytely for a prospective Sigmoidoscopy today and recently was experiencing dizziness, chest pressure located near the mid sternum, left arm weakness and pallor, and near syncope while having a bowel movement. Patient has been having BRBPR with each bowel movement without any stool present. Patient had Troponin, ECG, BEP, and 1 pRBC ordered. ECG normal compared to last. Patient will be transferred to Telemetry bed 189-2. Patient is followed by Dr. Mcelroy (Cardiology) and Dr. Cuevas (Gastroenterology). Dr. Cuevas, if chest pain resolves and vitals are stable, will attempt to continue with the Sigmoidoscopy today to assess GI bleeding etiology. Imaging - CTA ABDOMEN: NO acute vascular malformation or identifiable source of active bleeding. See radiology report. -EKG 10/07: NSR w/o significant ST-T abnormalities. -Last Echo: remotely in 2007 moderate left ventricular hypertrophy with a normal ejection fraction. -Interventions in ER: Vitamin K 10mg IM x 1, NS x 1 Problem list/Assessment/Hospital Course: #Lower GI bleed w/ symptomatic acute normacytic anemia #Hyperglycemia 2/2 T2DM, not HHS/DKA #Colonic tubular adenoma w/ sigmoid diverticulosis #PMH of CVA, CAD, Hx of A-fib on Anticogulant, T2DM, HTN, HLD, right sided Nephrolithiasis s/p Lithrotripsy in 2010 Patient's GI bleed more likely 2/2 lower GI w/ signs of BRBPR and acute anemia as shown in lab, though upper GI bleed may result in dark stool and would need rule out. CTA had negative findings and would not warrant any urgent cauterization at this point, however further GI eval would be needed, eg. possible repeat colonoscopy. Patient's Eliquis may have contributed to the bleeding especially s/p colonoscopy. Would treat supportive for now. Patient's INR is slightly above normal range without clear etiology, despite not being on coumadin any more. Dr. Cuevas (GI) and Dr. Mcelroy (Cards) are following him. Currently holding Eliquis as of now due to acute bleeding episodes and waiting on Sigmoidoscopy/Colonoscopy today 10/08. - Admit to general medicine - Vitals per protocol, monitor I&O per protocol. - Type and crossed. Ordered one unit pRBC today, latest Hgb 7.8 - Patient had underlying hx of CAD, would keep Hgb >8 for transfusion indication. - O2 if needed, monitor oxygen saturation - Would recheck HbA1c. - Would start on Novolin SS/AccuChek q 6. Patient had already taken levemir 30U at 0200 this morning. Will start 7U BID starting 10/08. - Avoid all NSAIDs - Would start Protonix IV daily. - Continue home meds, except holding eliquis/aspirin. - Be cautious on HTN meds as patient was taking more than 1. Advised nursing staff to check BP before giving all anti-HTN meds at once. - NPO for prospective procedure - Would give NS Bolus x 1 for now, and then continuous D5W 1/2 due to underlying T2DM. - GI consult rec. Sigmoidoscopy today 10/08; received Golytely today - Would recheck CBC q8 hrs - Pain w/ Tylenol PO/IV for now per pathway. Problem List: 1. GI bleed Pain Ratin Pain Location: chest pain, recent onset; transferred to telemetry for monitoring of vitals; ECG normal from baseline; Troponin pending Pain Goal: Pain 7 or less Pain Plan: pain meds as needed Tomorrow's Labs & Rationales: routine Helga Angel MD 10/08/17 0945: Attending Review Statement Attending Statement Attending MD Statement: examined this patient, discuss w/resident/PA/PHLEBOTOMY SUPERVISOR, agreed w/resident/PA/PHLEBOTOMY SUPERVISOR, reviewed EMR data (avail), discussed with nursing, discussed with case mgmt, reviewed images Attending Assessment/Plan: 57-year-old male past medical history of coronary artery disease and previous stenting, atrial fibrillation on anticoagulation, diabetes and hypertension who is here with an acute lower GI bleed. GI is suspecting that the polypectomy site is 1 that is bleeding. Patient agreed to take the GoLYTELY and the plan is for colonoscopy today. 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
--- NOTE | 2017-10-08 08:39 | PN- Gastroenterology ---
Assessment/Plan GI Assessment/Recommendations: Assessment: Mr. Taylor is a 57-year-old male admitted to [facility] yesterday morning with a post polypectomy lower GI bleed. He has remained hemodynamically stable, however he has continued to have bloody bowel movements and his hemoglobin has been trending downward and while the bleeding still may stop on its own with continuing to hold his Eliquis at this point I feel a repeat colonoscopy is warranted so I would recommend prepping him with Colyte so that a colonoscopy can be pursued this afternoon. Recommendations: 1. Would prep the patient with 1 gallon of Colyte to be taken over the course of 1-2 hours and then he should be made n.p.o. after the bowel prep. If he refuses the bowel prep, which I have now been notified by house staff may be an issue, would then recommend administering 2 fleets enemas as the polypectomy site I expect his bleeding is in the descending colon and I suspect enemas may be enough. As I am not 100% certain that is where the bleeding is coming from I would still recommend a full bowel prep if he is willing. 2. Monitor CBCs every 8 hours and transfuse as needed to maintain his hemoglobin greater than 8. 3. Avoid NSAIDs and continue to hold his anticoagulation for now. 4. Would contact his survey technician to see if he would have objections to us holding the anticoagulation for a prolonged period of time considering he is now in sinus rhythm. I will continue to follow this patient and make further recommendation based on his clinical course and the results of repeat blood work and the colonoscopy to be performed later today. Subjective Subjective: he is without any abdominal pain, but he has continued to have bloody bowel movements noting one at 7pm last night and again at 2am this morning. No CP, SOB or significant lightheadedness. Objective Vital Signs and I&Os Vital Signs Date Time Temp Pulse Resp B/P B/P Pulse O2 O2 Flow FiO2 Mean Ox Delivery Rate 10/09 0730 62 122/66 10/09 0729 62 122/66 10/08 0829 62 122/66 10/08 0646 97.8 62 20 122/66 99 08/05 2303 97.9 90 18 132/65 100 Room Air 10/07 2056 85 110/68 / 1426 98.3 65 18 122/76 100 08/05 0906 128/98 08/05 0905 128/98 10/07 0905 97.8 120/66 Intake & Output 10/08 0400 10/07 04010/06 0400 Intake Total 1000 100 260 Output Total Balance 1000 100 260 Intake, IV 1000 20 Intake, Oral 100 240 Number 2 1 Bowel Movements Patient 260 lb 253 lb 290 lb Weight Weight Bed scale Reported by Patient Measurement Method Physical Exam General Appearance: well developed/nourished, obese Head: atraumatic Neck: normal inspection, supple Respiratory: normal breath sounds, chest non-tender Cardiovascular: regular rate/rhythm Abdomen: normal bowel sounds, soft, no organomegaly Extremities: pedal edema Current Medications: Current Medications Sig/Rey Start time Last Medication Dose Route Stop Time Status Admin Acetaminophen 650 MG Q6P PRN 10/07 514 AC PO Acetaminophen 1,000 MG Q6 PRN 10/07 05 AC IV Atorvastatin Calcium 80 MG 1700 10/07 1700 AC 10/07 PO 1723 Chlorthalidone 50 MG DAILY 10/07 899 AC 10/08 PO 0829 Dextrose/Sodium 1,000 ML .Q8H 10/07 2355 AC 10/08 Chloride IV 10/08 1554 0826 Dextrose/Sodium 1,000 ML .Q8H 10/07 0615 DC Chloride IV 10/07 2214 Fenofibrate 145 MG DAILY 10/07 899 AC 10/08 PO 0830 Hydralazine HCl 75 MG BID 10/07 899 AC 10/08 PO 0829 Insulin Detemir 7 UNITS BID 10/08 899 AC 10/08 SC 0827 Insulin Human Regular 0 Q6 10/07 0615 10/08 SC 0543 Losartan Potassium 50 MG DAILY 10/07 899 AC 10/08 PO 0829 Nifedipine 60 MG DAILY 10/07 899 AC 10/08 PO 0830 Omeprazole 40 MG DAILY AC 10/08 699 AC 10/08 PO 0543 Pantoprazole Sodium 40 MG DAILY 10/07 899 DC 08 IV 0906 Polyethylene Glycol 1 GAL ONCE ONE 10/09 799 DC PO 10/08 0801 Pregabalin 100 MG BID 10/07 899 AC 10/08 PO 0830 Sodium Chloride 1,000 ML BOLUS ONE 10/07 614 CAN IV 10/07 0714 Results Pertinent Lab Results: Laboratory Tests 10/08 10/07 0200 1999 Chemistry Sodium (137 - 145 mmol/L) 137 Potassium (3.5 - 5.1 mmol/L) 3.6 Chloride (98 - 107 mmol/L) 103 Carbon Dioxide (22 - 30 mmol/L) 28 Anion Gap (5 - 16) 6 BUN (9 - 20 mg/dL) 29 H Creatinine (0.7 - 1.2 mg/dL) 1.2 Estimated GFR (>60 ml/min) > 60 BUN/Creatinine Ratio (7 - 25 %) 24.2 Hematology CBC w Diff NO MAN DIFF REQ Cancelled WBC (4.8 - 10.8 /CUMM) 9.1 Cancelled RBC (4.70 - 6.10 /CUMM) 2.81 L Cancelled Hgb (14.0 - 18.0 G/DL) 7.9 L Cancelled Hct (42 - 52 %) 23.4 L Cancelled MCV (80.0 - 94.0 FL) 83.5 Cancelled MCH (27.0 - 31.0 PG) 28.3 Cancelled MCHC (33.0 - 37.0 G/DL) 33.8 Cancelled RDW (11.5 - 14.5 %) 14.0 Cancelled Plt Count (130 - 400 /CUMM) 261 Cancelled MPV (7.4 - 10.4 FL) 7.8 Cancelled Gran % (42.2 - 75.2 %) 61.7 Lymphocytes % (20.5 - 51.1 %) 29.6 Monocytes % (1.7 - 9.3 %) 5.8 Eosinophils % (0 - 5 %) 2.2 Basophils % (0.0 - 2.0 %) 0.7 Absolute Granulocytes (1.4 - 6.5 /CUMM) 5.6 Absolute Lymphocytes (1.2 - 3.4 /CUMM) 2.7 Absolute Monocytes (0.10 - 0.60 /CUMM) 0.5 Absolute Eosinophils (0.0 - 0.7 /CUMM) 0.2 Absolute Basophils (0.0 - 0.2 /CUMM) 0.1 10/07 1241 Coagulation PT (9.4 - 12.5 SEC) 13.8 H INR (0.90 - 1.17) 1.26 H Hematology CBC w Diff NO MAN DIFF REQ NO MAN DIFF REQ WBC (4.8 - 10.8 /CUMM) 9.6 8.5 RBC (4.70 - 6.10 /CUMM) 2.94 L 3.06 L Hgb (14.0 - 18.0 G/DL) 8.2 L 8.4 L Hct (42 - 52 %) 24.7 L 25.5 L MCV (80.0 - 94.0 FL) 84.0 83.4 MCH (27.0 - 31.0 PG) 28.0 27.6 MCHC (33.0 - 37.0 G/DL) 33.3 33.0 RDW (11.5 - 14.5 %) 13.8 14.3 Plt Count (130 - 400 /CUMM) 281 253 MPV (7.4 - 10.4 FL) 7.4 7.3 L Gran % (42.2 - 75.2 %) 70.0 64.7 Lymphocytes % (20.5 - 51.1 %) 20.9 25.9 Monocytes % (1.7 - 9.3 %) 6.6 7.5 Eosinophils % (0 - 5 %) 2.0 1.5 Basophils % (0.0 - 2.0 %) 0.5 0.4 Absolute Granulocytes (1.4 - 6.5 /CUMM) 6.7 H 5.5 Absolute Lymphocytes (1.2 - 3.4 /CUMM) 2.0 2.2 Absolute Monocytes (0.10 - 0.60 /CUMM) 0.6 0.6 Absolute Eosinophils (0.0 - 0.7 /CUMM) 0.2 0.1 Absolute Basophils (0.0 - 0.2 /CUMM) 0 0 08/05 0345 Chemistry Sodium (137 - 145 mmol/L) 136 L Potassium (3.5 - 5.1 mmol/L) 3.8 Chloride (98 - 107 mmol/L) 102 Carbon Dioxide (22 - 30 mmol/L) 22 Anion Gap (5 - 16) 11 BUN (9 - 20 mg/dL) 37 H Creatinine (0.7 - 1.2 mg/dL) 1.2 Estimated GFR (>60 ml/min) > 60 BUN/Creatinine Ratio (7 - 25 %) 30.8 H Glucose (65 - 99 mg/dL) 295 H Hemoglobin A1c (4.2 - 5.8 %) 7.7 H Calcium (8.4 - 10.2 mg/dL) 8.6 Total Bilirubin (0.2 - 1.3 mg/dL) 0.3 AST (17 - 59 U/L) 12 L ALT (21 - 72 U/L) 26 Alkaline Phosphatase (< 127 U/L) 34 Total Protein (6.3 - 8.2 g/dL) 5.1 L Albumin (3.5 - 5.0 g/dL) 3.0 L Globulin (1.9 - 4.2 gm/dL) 2.1 Albumin/Globulin Ratio (1.1 - 2.2 %) 1.4 Coagulation PT (9.4 - 12.5 SEC) 16.7 H INR (0.90 - 1.17) 1.53 H APTT (25 - 37 SEC) 30 Hematology CBC w Diff NO MAN DIFF REQ WBC (4.8 - 10.8 /CUMM) 11.2 H RBC (4.70 - 6.10 /CUMM) 3.56 L Hgb (14.0 - 18.0 G/DL) 10.0 L Hct (42 - 52 %) 29.8 L MCV (80.0 - 94.0 FL) 83.7 MCH (27.0 - 31.0 PG) 28.2 MCHC (33.0 - 37.0 G/DL) 33.7 RDW (11.5 - 14.5 %) 14.0 Plt Count (130 - 400 /CUMM) 298 MPV (7.4 - 10.4 FL) 7.9 Gran % (42.2 - 75.2 %) 80.4 H Lymphocytes % (20.5 - 51.1 %) 13.9 L Monocytes % (1.7 - 9.3 %) 5.1 Eosinophils % (0 - 5 %) 0.3 Basophils % (0.0 - 2.0 %) 0.3 Absolute Granulocytes (1.4 - 6.5 /CUMM) 9.0 H Absolute Lymphocytes (1.2 - 3.4 /CUMM) 1.6 Absolute Monocytes (0.10 - 0.60 /CUMM) 0.6 Absolute Eosinophils (0.0 - 0.7 /CUMM) 0 Absolute Basophils (0.0 - 0.2 /CUMM) 0
[2017-10-08 09:54] LABS: ABSOLUTE BASOPHIL COUNT 0 /CUMM (0.0-0.2); ABSOLUTE EOSINOPHIL COUNT 0.2 /CUMM (0.0-0.7); ABSOLUTE GRANULOCYTE CT 4.5 /CUMM (1.4-6.5); ABSOLUTE LYMPH COUNT 2.3 /CUMM (1.2-3.4); ABSOLUTE MONOCYTE COUNT 0.4 /CUMM (0.10-0.60); BASOPHIL % 0.6 % (0.0-2.0); EOSINOPHIL % 2.8 % (0-5); GRANULOCYTE % 60.2 % (42.2-75.2); HEMATOCRIT 23.5 % (42-52); MEAN CORPUSCULAR HGB 28.1 PG (27.0-31.0); MEAN CORPUSCULAR HGB CONC 33.2 G/DL (33.0-37.0); MEAN CORPUSCULAR VOLUME 84.7 FL (80.0-94.0); MEAN PLATELET VOLUME 7.9 FL (7.4-10.4); PLATELET COUNT 258 /CUMM (130-400); RBC DISTRIBUTION WIDTH 13.9 % (11.5-14.5); RED BLOOD CELL CT 2.78 /CUMM (4.70-6.10); WHITE BLOOD CELL COUNT 7.5 /CUMM (4.8-10.8)
[2017-10-08 11:10] VITALS: BP 100/60
--- NOTE | 2017-10-08 11:13 | PN- Att Addend ---
Attending Addendum Attending Brief Note Patient was on the toilet bowl, he completed most of his prep and is still having bloody stool. He had a near syncopal event felt very faint dizzy shaky and also started developing chest pressure. Vitals were stable, stat EKG does not show any ischemic changes but given his underlying comorbidities will transfuse him 1 unit of blood, have cardiology see him. I spoken to Dr. Cuevas and if he stays stable he still needs his colonoscopy later this afternoon.
[2017-10-08 11:14] LABS: ABSOLUTE BASOPHIL COUNT 0.1 /CUMM (0.0-0.2); ABSOLUTE EOSINOPHIL COUNT 0.3 /CUMM (0.0-0.7); ABSOLUTE LYMPH COUNT 2.9 /CUMM (1.2-3.4); ABSOLUTE MONOCYTE COUNT 0.8 /CUMM (0.10-0.60); BASOPHIL % 0.4 % (0.0-2.0); EOSINOPHIL % 2.4 % (0-5); GRANULOCYTE % 66.3 % (42.2-75.2); HEMATOCRIT 25.5 % (42-52); MEAN CORPUSCULAR HGB 28.2 PG (27.0-31.0); MEAN CORPUSCULAR HGB CONC 33.6 G/DL (33.0-37.0); MEAN CORPUSCULAR VOLUME 83.9 FL (80.0-94.0); MEAN PLATELET VOLUME 8.1 FL (7.4-10.4); PLATELET COUNT 357 /CUMM (130-400); RED BLOOD CELL CT 3.04 /CUMM (4.70-6.10)
[2017-10-08 15:15] VITALS: BP 108/66
--- NOTE | 2017-10-08 15:15 | Proc Note Colonoscopy ---
Colonoscopy Procedure Medical History: unchanged (see meditech) Mental Status: alert/oriented Heart/Lung Eval Prior to Sedation: within normal limits Candidate for Sedation? Yes Date of Last Colonoscopy: 09/25/17 Procedure Date: 10/08/17 Procedure Type: colonoscopy with clip placement. Doctor Of Nursing Practice: Tolu Cuevas MD ASA Classification: III Indications: Rectal bleeding in a pt who underwent a colonoscopy on 09/25/17 when 12 polyps were removed. Instrument (Colonoscope): single channel Meds Received: MAC Patient's Tolerance: good Complications: none Extent Reached: cecum Prep: good Procedure: The risks of a colonoscopy was explained to the patient including, but not limited to, the risks of perforation, bleeding and/or a missed lesion and then written informed consent was obtained. After getting written informed consent the patient was placed in the left lateral decubitus position with pulse oximetry, cardiac monitoring, and supplemental oxygen was given. IV sedation was given until the desired effect was achieved. A rectal exam was performed which [was normal]. A high definition variable stiffness Olympus colonoscope was then inserted into the anus and advanced to the [cecum] with little difficulty. Retroflexed views were obtained and photodocumentation was obtained. Close inspection of the colonic mucosa was performed on insertion and withdrawal of the colonoscope with a withdrawal time that was adequate in length to closely inspect all folds and griffiths of the colon and with care to suction and irrigate away any leftover stool/blood to the best of my ability. Findings: There was old and fresh blood appreciated throughout the entire colon, but most of the fresh blood was on the left side of the colon. The terminal ileum was not able to be successfully intubated secondary to looping, however no blood was seen coming from the terminal ileum opening. The majority of the blood was able to be irrigated and suctioned through the colonoscope and after this was done there was no active reaccumulation of blood appreciated. Approximately 3 of the polypectomy sites were able to be identified, but none of them had stigmata of recent hemorrhage and were small clean based ulcers. There were no obvious visible vessels appreciated and it was not clear if any of those polypectomy sites represented the area where the 1 cm pedunculated polyp was removed from his descending colon. As a bleeding site could not be identified one Hemoclip was placed over each identifiable polypectomy site. There are also a few small amount scattered diverticula in the sigmoid colon and descending colon, but none of those diverticulum had stigmata of recent hemorrhage. There are also approximately 4-5 subcentimeter sessile polyps still remaining in the colon which are left in place. There were no large polyps or masses appreciated. Retroflexed views in the rectum revealed small internal hemorrhoids. Impression: 1. Findings consistent with a resolving post polypectomy or diverticular bleed with no active bleeding appreciated. 2. 3 polypectomy clean-based ulcers throughout the colon without active bleeding or visible vessel appreciated status post placement of one Hemoclip on each of them. 3. Left-sided diverticulosis without stigmata of recent hemorrhage. 4. Approximately 4-5 residual subcentimeter polyps throughout the colon that were left in place. 5. Small internal hemorrhoids. Recommendations: 1. Transfer the patient back to telemetry. 2. Would advance to a full liquid diet with nothing red for now and if he remains without any further bleeding with advance as tolerated tomorrow. 3. Follow CBCs every 8 hours and transfuse as needed to maintain hemoglobin greater than 8. 4. Notify GI for signs of hemodynamically significant GI bleeding. 5. Would recommend holding his Eliquis for 1-2 weeks especially considering he is now in sinus rhythm. 6. He should have a repeat colonoscopy 1 year. Followup Colonscopy Screen In: 1 year CC: Chelsi Schwartz APRN, MD PHD,Yovany Martell
--- NOTE | 2017-10-08 15:27 | Patient Discharge Instructions ---
Discharge Instructions General Discharge Information You were seen/treated for: GI bleed, treated conservatively by stopping anticoagulant and giving blood transfusion. Special Instructions: Please follow-up with your PCP within a week of discharge. Please follow-up with your power generation technician within 1-2 weeks of the discharge to discussed about the restarting on anticoagulation.We held Eliquis for next 1-2 weeks.(10/23/2017) Please watch for the bleeding. Please check the CBC within a week and show to your PCP please. Please come to the emergency, she started having GI bleed or call Dr. Cuevas. You will need a repeat colonoscopy 1 year. we stopped your aspirin and the lasix. Please discuss with power generation technician to restart it Diet Recommended Diet: Heart Healthy Acute Coronary Syndrome Inclusion Criteria At DC or during hospital stay patient has or had the following: ACS DIAGNOSIS No Discharge Core Measures Meds if any: Prescribed or Continued at Discharge Meds if any: NOT Prescribed or Continued at Discharge Congestive Heart Failure Inclusion Criteria At DC or during hospital stay patient has or had the following: CHF DIAGNOSIS No Discharge Core Measures Meds if any: Prescribed or Continued at Discharge Meds if any: NOT Prescribed or Continued at Discharge Cerebrovascular accident Inclusion Criteria At DC or during hospital stay patient has or had the following: CVA/TIA Diagnosis No Discharge Core Measures Meds if any: Prescribed or Continued at Discharge Meds if any: NOT Prescribed or Continued at Discharge Venous thromboembolism Inclusion Criteria VTE Diagnosis No VTE Type NONE VTE Confirmed by (Test) NONE Discharge Core Measures - Per Current guidelines, there needs to be overlap - treatment for the first 5 days of Warfarin therapy. - If discharged on Warfarin prior to 5 days of - overlap therapy, the patient will need to be - assessed for post discharge needs including - *Post discharge parental anticoagulation - *Warfarin and/or parental anticoagulation education - *Follow up date to check INR post discharge At least 5 days overlap therapy as Inpatient No Meds if any: Prescribed or Continued at Discharge Note: Overlap Therapy is Warfarin and Anticoagulant Meds if any: NOT Prescribed or Continued at Discharge
--- NOTE | 2017-10-08 18:04 | Cons- Cardiology ---
General Information and HPI Consulting Request Date of Consult: 10/08/17 Requested By: Jeanne ASTORGA,Helga Patel History of Present Illness: Patrice is a 57 year old male who carries a history of diabetes, hypertension, severe dyslipidemia and status post right internal capsular stroke, resulting in severe weakness of the left lower extremity and complete paralysis of the left upper extremity. He does have some movement of his fingers in the left upper extremity. Patrice was admitted for evaluation and treatment of a rectal bleed that occured following a colonoscopy with multiple biopsies. He stopped his Eliquis for a couple days prior to this procedure. When he restarted the medication bleeding occured. In this setting, Patrice has noted a mild chest pressure upon engaging in minimal physical activity such a going to the bathroom. He is also lightheaded and almost syncopized upon arising. Mild shortness of breath is also noted. In response to some prior chest discomfort this patient was recently risk stratified with a stress test that was negative for ischemia. I prescribed Protonix and his symptoms abated. He has had hypertension for about six months that he did not bring to my attention. On last visit I added Nifedipine ER 60mg daily which has helped. He was previously on Lasix but stopped this medication due to frequent urination. He is now followed by Dr. Griffiths for his diabetes and he was evaluated for possible Graves disease due to his proptosis. He is only mildly active but this is unchanged. Finally, his blood glucose has been poorly controlled but his diabetes medication was recently changed. This patient was recently found to have a renal cyst which is under investigation by Dr. Deluca. His creatinine is normal at 0.9 but his blood glucose remains elevated. The patient did tend to have some right lower extremity swelling which is now resolved. However, a previous ultrasound was negative for any thrombus. The patient's renal function is now within the normal limits, with a creatinine of 1.06. At one time the patient had renal insufficiency in the setting of diarrhea and dehydration. In that setting, back in 2010, the patient also had a borderline rise in his troponin, without any associated symptoms of myocardial ischemia. In consideration of the above, I did risk stratify the patient with an Adenosine stress test. There were no clinical or electrocardiographic findings of myocardial ischemia. His ejection fraction was 67% with mild inferior wall hypokinesis, and there did appear to be a fixed inferior wall defect. Borderline transient ischemic dilatation was also noted. His recent echo shows a normal EF of 60% with moderate LVH and trace to midl AI. Trace MR and TR are also noted. Patrice, due to his stroke, is only mildly active. He can walk at a slow pace and does so without having any untoward symptoms. His last lipid profile showed a direct LDL of less than 30, with an HDL of 29, and triglycerides tremendously elevated to 1188. This has been a significant change since his last lipid profile, which showed a higher LDL of 31, a much lower triglyceride level of 610 , along with a direct LDL of less than 30. It should be noted that the patient' s Crestor was discontinued in favor of Atorvastatin. I have had some suspicions about the possibility of Grave's disease in Patrice, since he does have bilateral proptosis. His TSH was normal at 1.56, with an elevated Free T4 of 11.6. To review past history: This patient previously had supraventricular tachycardia, which was being controlled with Amiodarone at a dose of 200 mg. a day. He was initially seen by me with complaints of a mild non-radiating precordial chest achiness that he had been experiencing over the preceding four months. I felt that this discomfort was atypical; however I subsequently performed a cardiac catheterization. This study showed a normal left main. The LAD harbored luminal irregularities, and appeared to be pruned. The LAD parented a second diagonal branch with a 50% long ostial to proximal stenosis. The left circumflex was a large patent vessel with a diminutive AV groove left circumflex. The right coronary artery was dominant with a 40% mid PDA lesion which did not appear to be flow limiting. Left ventriculography showed an overall EF of 55%. I did not feel that any of this disease was flow limiting, and therefore angioplasty was not pursued. Pruning of the vessels did go along with hypertensive heart disease. Allergies/Medications Allergies: Coded Allergies: morphine (Intermediate, WIERD FEELING 09/23/15) Home Med List: Apixaban (Eliquis) 5 MG TABLET 1 TAB PO BID BLOOD THINNER (Reported) Aspirin (Ecotrin*) 81 MG TABLET.DR 1 TAB PO DAILY heart (Reported) Chlorthalidone 50 MG TABLET 1 TAB PO DAILY HTN (Reported) Dapagliflozin Propanediol (Farxiga) 5 MG TABLET 1 TAB PO DAILY DM (Reported) Docusate Sodium (Colace) 100 MG CAPSULE 1 CAP PO BID constipation Dulaglutide (Trulicity) 1.5 MG/0.5 ML PEN.INJCTR 1 DOSE INJ Q WEEK DM ( Reported) Fenofibrate 160 MG TABLET 1 TAB PO DAILY HLD (Reported) Hydralazine HCl 25 MG TABLET 3 TAB PO BID HTN (Reported) Insulin Detemir (Levemir Flextouch) 100 UNIT/1 ML INSULN.PEN 30 U SC DAILY DIABETES (Reported) Metformin HCl (Glucophage) 1,000 MG TABLET 1 TAB PO BID DM (Reported) Na Phos,M-B/Na Phos,Di-Ba (Fleet Enema) 19 GRAM-7 GRAM/118 ML ENEMA 1 E RC DAILY PRN Constipation (Reported) Niacin (Niaspan) 1,000 MG TAB.ER.24H 1 TAB PO QPM HLD (Reported) Nifedipine (Nifedipine ER) 60 MG TAB.ER.24 1 TAB PO DAILY HTN (Reported) [place]-3 Acid Ethyl Esters (Lovaza) 1 GRAM CAPSULE 2 CAP PO BID SUPPLEMENT ( Reported) Pregabalin (Lyrica) 100 MG CAPSULE 1 CAP PO BID Leg burning/Neuropathy ( Reported) Rosuvastatin Calcium (Crestor) 20 MG TABLET 1 TAB PO DAILY HLD (Reported) Valsartan 160 MG TABLET 1 TAB PO DAILY HTN (Reported) Review of Systems Review of Systems: A review of systems is unremarkable. Past History Travel History Traveled to [place] past 21 day No Medical History Blood Transfusion Hx: No Neurological: CVA EENT: glaucoma Cardiovascular: hypertension, hyperlipidemia Respiratory: NONE Gastrointestinal: lower GI bleed Hepatic: NONE Renal: hematuria, KIDNEY STONES Musculoskeletal: ARTHRITIS R HIP PAIN Psychiatric: NONE Endocrine: diabetes Blood Disorders: NONE Cancer(s): NONE LAY OUT FORMER/Reproductive: NONE Surgical History Surgical History: LITHOTRIPSY Psychosocial History Services at Home: None Smoking Status: Never Smoked ETOH Use: occasional use (3 time per week) Illicit Drug Use: denies illicit drug use Employment History Employment: [employer]ability Exam & Diagnostic Data Vital Signs and I&O Vital Signs Date Time Temp Pulse Resp B/P B/P Pulse O2 O2 Flow FiO2 Mean Ox Delivery Rate 10/08 1515 98.1 69 20 108/66 100 Room Air 10/08 1110 98.4 66 18 100/60 98 Nasal 2.0L Cannula 10/08 1051 98 Nasal 3.0L Cannula 10/08 0830 62 122/66 /06 0829 62 122/66 /06 0829 62 122/66 /06 0646 97.8 62 20 122/66 99 08/05 2303 97.9 90 18 132/65 100 Room Air 10/07 2056 85 110/68 Intake & Output 10/08 1600 08/06 0800 08/06 0000 08/ 1600 08/ 0800 08/ 0000 Intake Total 325 1000 100 240 20 Output Total 200 Balance 125 1000 100 240 20 Intake, Blood 200 Product Intake, IV 125 1000 20 Intake, Oral 100 240 Number 2 2 1 Bowel Movements Output, Urine 200 Patient 260 lb 253 lb Weight Weight Bed scale Measurement Method Physical Exam: General: WD/overweight male in NAD; alert and oriented Skin: pale HEENT: NC/AT, PERRL, EOMI Neck: no JVD, no carotid bruit Heart: RRR with 2/6 systolic murmur at the LUSB Lungs: clear bilaterally Abdomen: soft, obese, mildly tender, positive bowel sounds Extremties: no edema Assessment/Plan Assessment/Plan * Patrice has chest discomfort that may be related to myocardial ischemia that is exacerbated by severe and acute anemia. I agree with a transfusion. It should be noted however, that he has had prior chest discomfort that was relieve by Protonix and appeared to be related to eating. His stress test was negative for ischemia. Continue his statin and Lovaza. We will consider a repeat outpatient stress test. Check cardiac enzymes. * This patient has had palpitations which could be brief paroxysms of atrial fibrillation although this has not been documented. He is on Eliquis for stroke prophylaxis due to his prior CVA. He was previously on cardizem for SVT. We will watch this symptoms expectantly. For now; in consideration of his active GI bleed, anticoagulation will need to be stopped. Consult Acknowledgment - Thank you for your consult request.
[2017-10-08 23:37] VITALS: BP 102/60
[2017-10-09 00:22] LABS: ABSOLUTE BASOPHIL COUNT 0 /CUMM (0.0-0.2); ABSOLUTE EOSINOPHIL COUNT 0.2 /CUMM (0.0-0.7); ABSOLUTE GRANULOCYTE CT 4.9 /CUMM (1.4-6.5); ABSOLUTE LYMPH COUNT 1.9 /CUMM (1.2-3.4); ABSOLUTE MONOCYTE COUNT 0.5 /CUMM (0.10-0.60); BASOPHIL % 0.4 % (0.0-2.0); EOSINOPHIL % 2.1 % (0-5); GRANULOCYTE % 65.8 % (42.2-75.2); MEAN CORPUSCULAR HGB 28.3 PG (27.0-31.0); MEAN CORPUSCULAR HGB CONC 33.6 G/DL (33.0-37.0); MEAN CORPUSCULAR VOLUME 84.1 FL (80.0-94.0); MEAN PLATELET VOLUME 7.7 FL (7.4-10.4); PLATELET COUNT 217 /CUMM (130-400); RBC DISTRIBUTION WIDTH 13.6 % (11.5-14.5); RED BLOOD CELL CT 2.61 /CUMM (4.70-6.10); WHITE BLOOD CELL COUNT 7.4 /CUMM (4.8-10.8)
[2017-10-09 06:56] VITALS: BP 114/56
--- NOTE | 2017-10-09 07:25 | PN- Housestaff ---
Alejandro Shea 10/09/17 0725: Subjective Follow-up For: Bright red blood per rectum, chest pain Subjective: Patient feels dizzy. No chest pain/ palpitations or SOB. Review of Systems Constitutional: Reports: no symptoms. Objective Last 24 Hrs of Vital Signs/I&O Vital Signs Date Time Temp Pulse Resp B/P B/P Pulse O2 O2 Flow FiO2 Mean Ox Delivery Rate 10/09 1502 98.1 72 20 120/68 97 Room Air 10/09 0923 98/40 10/09 0923 98/40 10/09 0922 72 98/40 10/09 0656 98.9 72 20 114/56 96 Room Air 10/09 0000 Nasal 2.0L Cannula 10/08 2337 98.4 70 22 102/60 99 Room Air 10/08 2206 69 108/66 Intake & Output 10/09 1600 10/09 0810/09 0000 Intake Total 803 818 2445 Output Total Balance 472 835 5734 Intake, IV 480 1000 Intake, Oral 600 120 500 Physical Exam General Appearance: Alert, Oriented X3, Cooperative, No Acute Distress Cardiovascular: Regular Rate, No Murmurs Lungs: Clear to Auscultation, Normal Air Movement Abdomen: Normal Bowel Sounds, Soft, No Tenderness, No Hepatospenomegaly, No Masses Neurological: Normal Speech, Strength at 5/5 X4 Ext, Normal Tone, Sensation Intact Extremities: No Clubbing, No Cyanosis, No Edema, Normal Pulses, No Tenderness/ Swelling Current Medications: Current Medications Sig/Rey Start time Last Medication Dose Route Stop Time Status Admin Acetaminophen 650 MG Q6P PRN 10/07 514 AC PO Acetaminophen 1,000 MG Q6 PRN 10/07 0415 AC IV Atorvastatin Calcium 80 MG 1700 10/07 1700 AC 10/08 PO 1656 Chlorthalidone 50 MG DAILY 10/07 899 AC 10/09 PO 0923 Fenofibrate 145 MG DAILY 10/07 899 AC 10/09 PO 0922 Hydralazine HCl 75 MG BID 10/07 899 AC 10/08 PO 2206 Insulin Aspart 0 TIDAC 10/09 1200 AC 10/09 SC 1235 Insulin Detemir 7 UNITS BID 10/08 899 AC 10/09 SC 0924 Insulin Human Regular 0 Q6 10/07 0515 DC 10/09 SC 0618 Losartan Potassium 50 MG DAILY 10/07 899 AC 10/08 PO 08 Nifedipine 60 MG DAILY 10/07 899 AC 10/09 PO 0923 Omeprazole 40 MG DAILY AC 10/08 699 AC 10/09 PO 0618 Potassium Chloride 40 MEQ BID 10/09 1350 AC 10/09 PO 1450 Pregabalin 100 MG BID 10/07 899 AC 10/09 PO 0923 Last 24 Hrs of Lab/Ap Results Last 24 Hrs of Labs/Mics: Laboratory Tests 10/09/17 1214: CBC w Diff NO MAN DIFF REQ, RBC 3.00 L, MCV 85.0, MCH 28.3, MCHC 33.3, RDW 14.0 , MPV 7.7, Gran % 65.4, Lymphocytes % 23.3, Monocytes % 7.6, Eosinophils % 3.0, Basophils % 0.7, Absolute Granulocytes 4.3, Absolute Lymphocytes 1.5, Absolute Monocytes 0.5, Absolute Eosinophils 0.2, Absolute Basophils 0 10/09/17 0647: Anion Gap 7, Estimated GFR > 60, BUN/Creatinine Ratio 15.5, Phosphorus 3.4, Magnesium 2.1, CBC w Diff NO MAN DIFF REQ, RBC 3.11 L, MCV 84.6, MCH 28.4, MCHC 33.5, RDW 14.1, MPV 7.9, Gran % 64.0, Lymphocytes % 26.9, Monocytes % 6.0, Eosinophils % 2.8, Basophils % 0.3, Absolute Granulocytes 4.9, Absolute Lymphocytes 2.1, Absolute Monocytes 0.5, Absolute Eosinophils 0.2, Absolute Basophils 0 10/09/17 0010: CBC w Diff NO MAN DIFF REQ, RBC 2.61 L, MCV 84.1, MCH 28.3, MCHC 33.6, RDW 13.6 , MPV 7.7, Gran % 65.8, Lymphocytes % 25.2, Monocytes % 6.5, Eosinophils % 2.1, Basophils % 0.4, Absolute Granulocytes 4.9, Absolute Lymphocytes 1.9, Absolute Monocytes 0.5, Absolute Eosinophils 0.2, Absolute Basophils 0 Assessment/Plan Assessment: 57-year-old male, presented with BR BPR with each bowel movement to the ER was admitted to the hospital. Patient underwent sigmoidoscopy and had a rapid response earlier yesterday. And was shifted to telemetry for monitoring. Serial troponin, ECG, BMp were negative. CTA ABDOMEN: NO acute vascular malformation or identifiable source of active bleeding. See radiology report. Problem list/Assessment/Hospital Course: # Chest pain-cardiology was consulted, they suggested the chest pain could be due to myocardial ischemia which was exacerbated by severe acute anemia. No rise in troponin. Although chest discomfort also be due to GI causes as his stress test was negative for ischemia. Outpatient stress test to follow. -Continue statin, Lovaza. -Patient had palpitations which could be paroxysms of atrial fibrillation that has not been documented . However discontinue Eliquis for 2 weeks as per GI recommendations #Lower GI bleed w/ symptomatic acute normacytic anemia Colonoscopy showed 3 polypectomy clean based ulcers without active bleeding or visible vessel appreciated status post placement of one Hemoclip on each of them. Left-sided diverticulosis without stigmata of recent hemorrhage. -Hold Eliquis for 14 days Notify GI for any recurrent bleeding, but if this doesn't occur consideration should be given to discharge him home later today or in the am. #Diabetes -Continue insulin NovoLog and Levemir Problem List: 1. GI bleed 2. Diabetes mellitus type 2 3. Symptomatic anemia 4. Atrial fibrillation Pain Ratin Pain Location: None Pain Goal: Remain pain free Pain Plan: None Tomorrow's Labs & Rationales: None Hal Goode MD 10/09/17 1524: Attending MD Review Statement Attending Statement Attending MD Statement: examined this patient, discuss w/resident/PA/CHIEF LIBRARIAN [employer], agreed w/resident/PA/CHIEF LIBRARIAN [employer], reviewed EMR data (avail) Attending Assessment/Plan: Patient is feeling well today, no abdominal pain, no GI bleeding. His dizziness is improving. He denies chest pain, palpitations, SOB. Hgb has remained stable. Patient is stable for discharge home, will stop Eliquis for 2 weeks, follow up with GI and cardiology as an outpatient, continue remianing home medications.
[2017-10-09 07:54] LABS: ABSOLUTE BASOPHIL COUNT 0 /CUMM (0.0-0.2); ABSOLUTE EOSINOPHIL COUNT 0.2 /CUMM (0.0-0.7); ABSOLUTE GRANULOCYTE CT 4.9 /CUMM (1.4-6.5); ABSOLUTE LYMPH COUNT 2.1 /CUMM (1.2-3.4); ABSOLUTE MONOCYTE COUNT 0.5 /CUMM (0.10-0.60); BASOPHIL % 0.3 % (0.0-2.0); EOSINOPHIL % 2.8 % (0-5); HEMATOCRIT 26.3 % (42-52); MEAN CORPUSCULAR HGB 28.4 PG (27.0-31.0); MEAN CORPUSCULAR HGB CONC 33.5 G/DL (33.0-37.0); MEAN CORPUSCULAR VOLUME 84.6 FL (80.0-94.0); MEAN PLATELET VOLUME 7.9 FL (7.4-10.4); PLATELET COUNT 263 /CUMM (130-400); RBC DISTRIBUTION WIDTH 14.1 % (11.5-14.5); RED BLOOD CELL CT 3.11 /CUMM (4.70-6.10); WHITE BLOOD CELL COUNT 7.7 /CUMM (4.8-10.8)
[2017-10-09 12:54] LABS: ABSOLUTE BASOPHIL COUNT 0 /CUMM (0.0-0.2); ABSOLUTE EOSINOPHIL COUNT 0.2 /CUMM (0.0-0.7); ABSOLUTE GRANULOCYTE CT 4.3 /CUMM (1.4-6.5); ABSOLUTE LYMPH COUNT 1.5 /CUMM (1.2-3.4); ABSOLUTE MONOCYTE COUNT 0.5 /CUMM (0.10-0.60); BASOPHIL % 0.7 % (0.0-2.0); GRANULOCYTE % 65.4 % (42.2-75.2); HEMATOCRIT 25.5 % (42-52); MEAN CORPUSCULAR HGB 28.3 PG (27.0-31.0); MEAN CORPUSCULAR HGB CONC 33.3 G/DL (33.0-37.0); MEAN PLATELET VOLUME 7.7 FL (7.4-10.4); PLATELET COUNT 236 /CUMM (130-400); WHITE BLOOD CELL COUNT 6.5 /CUMM (4.8-10.8)
--- NOTE | 2017-10-09 14:06 | PN- Gastroenterology ---
Assessment/Plan GI Assessment/Recommendations: Assessment: Mr. Taylor is a 57 year old male admitted with lower GI bleeding for which he ultimatlely underwent a repeat colonoscopy which showed old blood, but no active bleeding. While it isn't entirely clear if he had a post polypectomy bleed or a diverticular bleed as a clear site of bleeding wasn't identified, but considering the timing it was most likely post-polypectomy and exacerbated by the anti-coagulation that has since been held. In any case, as the bleeding has now stopped making this distinction isn't absolutely necessary. His hgb has been stable and I am hopeful that his diet can be advanced and he can be discharged home shortly. Recommendations: 1. Diet as tolearted. 2. Hold Eliquis for 10-14 days and then restart if indicated per cardiology recommendations. 3. He can resume Linzess as needed for constipation when he is discharged 3. Notify GI for any recurrent bleeding, but if this doesn't occur consideration should be given to discharge him home later today or in the am. I will sign off at this time and ask that GI be reconsulted with any recurrent bleeding or any new GI issues. Problem List: 1. Lower GI bleeding 2. Constipation Subjective Subjective: pt without any complaints. no further bms or bleeding since yesterdays colonoscopy Objective Vital Signs and I&Os Vital Signs Date Time Temp Pulse Resp B/P B/P Pulse O2 O2 Flow FiO2 Mean Ox Delivery Rate 10/09 922 98/40 10/09 0923 98/40 10/09 0922 72 98/40 10/09 0656 98.9 72 20 114/56 96 Room Air 10/09 0000 Nasal 2.0L Cannula 10/08 2337 98.4 70 22 102/60 99 Room Air 10/08 2206 69 108/66 10/08 1600 Nasal 2.0L Cannula 10/08 1515 98.1 69 20 108/66 100 Room Air Intake & Output 10/09 1600 10/09 0400 10/08 1600 10/08 0400 10/07 0400 Intake Total 600 1500 1325 100 260 Output Total 200 Balance 600 1500 1125 100 260 Intake, Blood 200 Product Intake, IV 480 1000 1125 20 Intake, Oral 120 500 100 240 Number 4 1 Bowel Movements Output, Urine 200 Patient 260 lb 253 lb 290 lb Weight Weight Bed scale Reported by Patient Measurement Method Physical Exam General Appearance: well developed/nourished, no apparent distress, anxious, comfortable Head: atraumatic Neck: supple Respiratory: normal breath sounds Cardiovascular: regular rate/rhythm Abdomen: normal bowel sounds, soft, non-tender, no organomegaly Current Medications: Current Medications Sig/Rey Start time Last Medication Dose Route Stop Time Status Admin Acetaminophen 650 MG Q6P PRN 10/07 514 AC PO Acetaminophen 1,000 MG Q6 PRN 10/07 0515 AC IV Atorvastatin Calcium 80 MG 1700 10/07 1700 AC 10/08 PO 1656 Chlorhexidine 1 GM .STK-MED ONE 10/08 1509 DC Gluconate TOP 10/08 1510 Chlorthalidone 50 MG DAILY 10/07 899 10/09 PO 0923 Dextrose/Sodium 1,000 ML .Q8H 10/07 2355 IA 10/08 Chloride IV 10/08 1554 0826 Fenofibrate 145 MG DAILY 10/07 899 10/09 PO 0922 Hydralazine HCl 75 MG BID 10/07 09 10/08 PO 2206 Insulin Aspart 0 TIDAC 10/09 1200 AC 10/09 SC 1235 Insulin Detemir 7 UNITS BID 10/08 0900 10/09 SC 0924 Insulin Human Regular 0 Q6 10/07 0615 IA 10/09 SC 0618 Losartan Potassium 50 MG DAILY 10/07 899 10/08 PO 0829 Nifedipine 60 MG DAILY 10/07 899 AC 10/09 PO 0923 Omeprazole 40 MG DAILY AC 10/08 0700 AC 10/09 PO 0618 Potassium Chloride 40 MEQ BID 10/09 1350 AC PO Pregabalin 100 MG BID 10/07 09 AC 10/09 PO 0923 Results Pertinent Lab Results: Laboratory Tests 10/09 10/09 1214 0647 Chemistry Sodium (137 - 145 mmol/L) 138 Potassium (3.5 - 5.1 mmol/L) 3.3 L Chloride (98 - 107 mmol/L) 104 Carbon Dioxide (22 - 30 mmol/L) 28 Anion Gap (5 - 16) 7 BUN (9 - 20 mg/dL) 17 Creatinine (0.7 - 1.2 mg/dL) 1.1 Estimated GFR (>60 ml/min) > 60 BUN/Creatinine Ratio (7 - 25 %) 15.5 Phosphorus (2.5 - 4.5 mg/dL) 3.4 Magnesium (1.6 - 2.3 mg/dL) 2.1 Hematology CBC w Diff NO MAN DIFF REQ NO MAN DIFF REQ WBC (4.8 - 10.8 /CUMM) 6.5 7.7 RBC (4.70 - 6.10 /CUMM) 3.00 L 3.11 L Hgb (14.0 - 18.0 G/DL) 8.5 L 8.8 L Hct (42 - 52 %) 25.5 L 26.3 L MCV (80.0 - 94.0 FL) 85.0 84.6 MCH (27.0 - 31.0 PG) 28.3 28.4 MCHC (33.0 - 37.0 G/DL) 33.3 33.5 RDW (11.5 - 14.5 %) 14.0 14.1 Plt Count (130 - 400 /CUMM) 236 263 MPV (7.4 - 10.4 FL) 7.7 7.9 Gran % (42.2 - 75.2 %) 65.4 64.0 Lymphocytes % (20.5 - 51.1 %) 23.3 26.9 Monocytes % (1.7 - 9.3 %) 7.6 6.0 Eosinophils % (0 - 5 %) 3.0 2.8 Basophils % (0.0 - 2.0 %) 0.7 0.3 Absolute Granulocytes (1.4 - 6.5 /CUMM) 4.3 4.9 Absolute Lymphocytes (1.2 - 3.4 /CUMM) 1.5 2.1 Absolute Monocytes (0.10 - 0.60 /CUMM) 0.5 0.5 Absolute Eosinophils (0.0 - 0.7 /CUMM) 0.2 0.2 Absolute Basophils (0.0 - 0.2 /CUMM) 0 0 / 08 0010 1524 Hematology CBC w Diff NO MAN DIFF REQ Cancelled WBC (4.8 - 10.8 /CUMM) 7.4 Cancelled RBC (4.70 - 6.10 /CUMM) 2.61 L Cancelled Hgb (14.0 - 18.0 G/DL) 7.4 *L Cancelled Hct (42 - 52 %) 22.0 L Cancelled MCV (80.0 - 94.0 FL) 84.1 Cancelled MCH (27.0 - 31.0 PG) 28.3 Cancelled MCHC (33.0 - 37.0 G/DL) 33.6 Cancelled RDW (11.5 - 14.5 %) 13.6 Cancelled Plt Count (130 - 400 /CUMM) 217 Cancelled MPV (7.4 - 10.4 FL) 7.7 Cancelled Gran % (42.2 - 75.2 %) 65.8 Lymphocytes % (20.5 - 51.1 %) 25.2 Monocytes % (1.7 - 9.3 %) 6.5 Eosinophils % (0 - 5 %) 2.1 Basophils % (0.0 - 2.0 %) 0.4 Absolute Granulocytes (1.4 - 6.5 /CUMM) 4.9 Absolute Lymphocytes (1.2 - 3.4 /CUMM) 1.9 Absolute Monocytes (0.10 - 0.60 /CUMM) 0.5 Absolute Eosinophils (0.0 - 0.7 /CUMM) 0.2 Absolute Basophils (0.0 - 0.2 /CUMM) 0 10/08 10/08 1057 1047 Chemistry Sodium (137 - 145 mmol/L) 135 L Cancelled Potassium (3.5 - 5.1 mmol/L) 3.5 Cancelled Chloride (98 - 107 mmol/L) 100 Cancelled Carbon Dioxide (22 - 30 mmol/L) 26 Cancelled Anion Gap (5 - 16) 9 Cancelled BUN (9 - 20 mg/dL) 27 H Cancelled Creatinine (0.7 - 1.2 mg/dL) 1.3 H Cancelled Estimated GFR (>60 ml/min) 57 L BUN/Creatinine Ratio (7 - 25 %) 20.8 Cancelled Troponin I (<0.11 ng/ml) < 0.01 Coagulation PT (9.4 - 12.5 SEC) 12.0 INR (0.90 - 1.17) 1.10 Hematology CBC w Diff NO MAN DIFF REQ WBC (4.8 - 10.8 /CUMM) 12.0 H RBC (4.70 - 6.10 /CUMM) 3.04 L Hgb (14.0 - 18.0 G/DL) 8.6 L Hct (42 - 52 %) 25.5 L MCV (80.0 - 94.0 FL) 83.9 MCH (27.0 - 31.0 PG) 28.2 MCHC (33.0 - 37.0 G/DL) 33.6 RDW (11.5 - 14.5 %) 14.0 Plt Count (130 - 400 /CUMM) 357 MPV (7.4 - 10.4 FL) 8.1 Gran % (42.2 - 75.2 %) 66.3 Lymphocytes % (20.5 - 51.1 %) 24.5 Monocytes % (1.7 - 9.3 %) 6.4 Eosinophils % (0 - 5 %) 2.4 Basophils % (0.0 - 2.0 %) 0.4 Absolute Granulocytes (1.4 - 6.5 /CUMM) 8.0 H Absolute Lymphocytes (1.2 - 3.4 /CUMM) 2.9 Absolute Monocytes (0.10 - 0.60 /CUMM) 0.8 H Absolute Eosinophils (0.0 - 0.7 /CUMM) 0.3 Absolute Basophils (0.0 - 0.2 /CUMM) 0.1 10/08 08 0835 0200 Chemistry Sodium (137 - 145 mmol/L) 137 Potassium (3.5 - 5.1 mmol/L) 3.6 Chloride (98 - 107 mmol/L) 103 Carbon Dioxide (22 - 30 mmol/L) 28 Anion Gap (5 - 16) 6 BUN (9 - 20 mg/dL) 29 H Creatinine (0.7 - 1.2 mg/dL) 1.2 Estimated GFR (>60 ml/min) > 60 BUN/Creatinine Ratio (7 - 25 %) 24.2 Hematology CBC w Diff NO MAN DIFF REQ NO MAN DIFF REQ WBC (4.8 - 10.8 /CUMM) 7.5 9.1 RBC (4.70 - 6.10 /CUMM) 2.78 L 2.81 L Hgb (14.0 - 18.0 G/DL) 7.8 L 7.9 L Hct (42 - 52 %) 23.5 L 23.4 L MCV (80.0 - 94.0 FL) 84.7 83.5 MCH (27.0 - 31.0 PG) 28.1 28.3 MCHC (33.0 - 37.0 G/DL) 33.2 33.8 RDW (11.5 - 14.5 %) 13.9 14.0 Plt Count (130 - 400 /CUMM) 258 261 MPV (7.4 - 10.4 FL) 7.9 7.8 Gran % (42.2 - 75.2 %) 60.2 61.7 Lymphocytes % (20.5 - 51.1 %) 30.5 29.6 Monocytes % (1.7 - 9.3 %) 5.9 5.8 Eosinophils % (0 - 5 %) 2.8 2.2 Basophils % (0.0 - 2.0 %) 0.6 0.7 Absolute Granulocytes (1.4 - 6.5 /CUMM) 4.5 5.6 Absolute Lymphocytes (1.2 - 3.4 /CUMM) 2.3 2.7 Absolute Monocytes (0.10 - 0.60 /CUMM) 0.4 0.5 Absolute Eosinophils (0.0 - 0.7 /CUMM) 0.2 0.2 Absolute Basophils (0.0 - 0.2 /CUMM) 0 0.1 10/07 Hematology CBC w Diff Cancelled NO MAN DIFF REQ WBC (4.8 - 10.8 /CUMM) Cancelled 9.6 RBC (4.70 - 6.10 /CUMM) Cancelled 2.94 L Hgb (14.0 - 18.0 G/DL) Cancelled 8.2 L Hct (42 - 52 %) Cancelled 24.7 L MCV (80.0 - 94.0 FL) Cancelled 84.0 MCH (27.0 - 31.0 PG) Cancelled 28.0 MCHC (33.0 - 37.0 G/DL) Cancelled 33.3 RDW (11.5 - 14.5 %) Cancelled 13.8 Plt Count (130 - 400 /CUMM) Cancelled 281 MPV (7.4 - 10.4 FL) Cancelled 7.4 Gran % (42.2 - 75.2 %) 70.0 Lymphocytes % (20.5 - 51.1 %) 20.9 Monocytes % (1.7 - 9.3 %) 6.6 Eosinophils % (0 - 5 %) 2.0 Basophils % (0.0 - 2.0 %) 0.5 Absolute Granulocytes (1.4 - 6.5 /CUMM) 6.7 H Absolute Lymphocytes (1.2 - 3.4 /CUMM) 2.0 Absolute Monocytes (0.10 - 0.60 /CUMM) 0.6 Absolute Eosinophils (0.0 - 0.7 /CUMM) 0.2 Absolute Basophils (0.0 - 0.2 /CUMM) 0 10/07 10/07 1241 0345 Chemistry Sodium (137 - 145 mmol/L) 136 L Potassium (3.5 - 5.1 mmol/L) 3.8 Chloride (98 - 107 mmol/L) 102 Carbon Dioxide (22 - 30 mmol/L) 22 Anion Gap (5 - 16) 11 BUN (9 - 20 mg/dL) 37 H Creatinine (0.7 - 1.2 mg/dL) 1.2 Estimated GFR (>60 ml/min) > 60 BUN/Creatinine Ratio (7 - 25 %) 30.8 H Glucose (65 - 99 mg/dL) 295 H Hemoglobin A1c (4.2 - 5.8 %) 7.7 H Calcium (8.4 - 10.2 mg/dL) 8.6 Total Bilirubin (0.2 - 1.3 mg/dL) 0.3 AST (17 - 59 U/L) 12 L ALT (21 - 72 U/L) 26 Alkaline Phosphatase (< 127 U/L) 34 Total Protein (6.3 - 8.2 g/dL) 5.1 L Albumin (3.5 - 5.0 g/dL) 3.0 L Globulin (1.9 - 4.2 gm/dL) 2.1 Albumin/Globulin Ratio (1.1 - 2.2 %) 1.4 Coagulation PT (9.4 - 12.5 SEC) 13.8 H 16.7 H INR (0.90 - 1.17) 1.26 H 1.53 H APTT (25 - 37 SEC) 30 Hematology CBC w Diff NO MAN DIFF REQ NO MAN DIFF REQ WBC (4.8 - 10.8 /CUMM) 8.5 11.2 H RBC (4.70 - 6.10 /CUMM) 3.06 L 3.56 L Hgb (14.0 - 18.0 G/DL) 8.4 L 10.0 L Hct (42 - 52 %) 25.5 L 29.8 L MCV (80.0 - 94.0 FL) 83.4 83.7 MCH (27.0 - 31.0 PG) 27.6 28.2 MCHC (33.0 - 37.0 G/DL) 33.0 33.7 RDW (11.5 - 14.5 %) 14.3 14.0 Plt Count (130 - 400 /CUMM) 253 298 MPV (7.4 - 10.4 FL) 7.3 L 7.9 Gran % (42.2 - 75.2 %) 64.7 80.4 H Lymphocytes % (20.5 - 51.1 %) 25.9 13.9 L Monocytes % (1.7 - 9.3 %) 7.5 5.1 Eosinophils % (0 - 5 %) 1.5 0.3 Basophils % (0.0 - 2.0 %) 0.4 0.3 Absolute Granulocytes (1.4 - 6.5 /CUMM) 5.5 9.0 H Absolute Lymphocytes (1.2 - 3.4 /CUMM) 2.2 1.6 Absolute Monocytes (0.10 - 0.60 /CUMM) 0.6 0.6 Absolute Eosinophils (0.0 - 0.7 /CUMM) 0.1 0 Absolute Basophils (0.0 - 0.2 /CUMM) 0 0
[2017-10-09 15:02] VITALS: BP 120/68
--- NOTE | 2017-10-09 16:28 | PN- Cardiology ---
Subjective Subjective: * Patient feels improved today. * H/H 8.5/25.5 * Potassium is 3.3 Objective Vital Signs and I&Os Vital Signs Date Time Temp Pulse Resp B/P B/P Pulse O2 O2 Flow FiO2 Mean Ox Delivery Rate 10/09 1502 98.1 72 20 120/68 97 Room Air 10/09 0923 98/40 10/09 0923 98/40 10/09 0922 72 98/40 10/09 0656 98.9 72 20 114/56 96 Room Air 10/09 0000 Nasal 2.0L Cannula 10/08 2337 98.4 70 22 102/60 99 Room Air 10/08 2206 69 108/66 Intake & Output 10/09 1600 10/09 0800 10/09 0000 10/08 1600 10/08 0800 10/08 0000 Intake Total 378 141 6841 325 1000 100 Output Total 200 Balance 913 396 9256 125 1000 100 Intake, Blood 200 Product Intake, IV 480 8530 590 8257 Intake, Oral 600 120 500 100 Number 2 2 1 Bowel Movements Output, Urine 200 Patient 260 lb Weight Physical Exam: General: WD/overweight male in NAD; alert and oriented Skin: pale HEENT: NC/AT, PERRL, EOMI Neck: no JVD, no carotid bruit Heart: RRR with 2/6 systolic murmur at the LUSB Lungs: clear bilaterally Abdomen: soft, obese, mildly tender, positive bowel sounds Extremties: no edema Assessment/Plan Assessment/Plan * Patrice has chest discomfort that may be related to myocardial ischemia that is exacerbated by severe and acute anemia. There was no rise in troponin. It should be noted however, that he has had prior chest discomfort that was relieve by Protonix and appeared to be related to eating. His stress test was negative for ischemia. Continue his statin and Lovaza. We will consider a repeat outpatient stress test. * This patient has had palpitations which could be brief paroxysms of atrial fibrillation although this has not been documented. He is on Eliquis for stroke prophylaxis due to his prior CVA. He was previously on cardizem for SVT. We will watch this symptoms expectantly. Hold Eliquis for 10-14 days and then restart at 5mg BID. Continue telemetry? Yes
--- NOTE | 2017-10-09 16:54 | Discharge Summary ---
Visit Information Visit Dates Admission Date: 10/07/17 Discharge Date: 10/09/2017 Hospital Course Course Attending Physician: Hal Goode MD Primary Care Physician: Chelsi Schwartz APRN Consulting Request: Consulting Specialty: Gastroenterology Consulting Physician: Dr Cuevas [facility] Course: Mr. Taylor is a 57yo M w/ PMH of CVA w/ residual LUE weakness in 2008, CAD s /p PCI w/o stent? in 2007, Hx of A-fib now controlled on eliquis, T2DM, HTN, HLD , right sided Nephrolithiasis s/p Lithrotripsy in 2010, BIBA from home cc of intermittent bloody stool x 10 days. Patient had recent colonoscopy from Dr. Cuevas on 09/25/2017 w/ 12 polyps removed with pathology showing mostly tubular adenoma w/o evidence of invasive CA, and had mild diverticulosis & reflux esophagitis, possible gastroparesis. Patient held his eliquis 2 days prior the colonoscopy and 2 more days s/p colonoscopy. Patient started noticing BRBPR/dark stools on/off since 09/27/2017, without any associated ab pain or symptoms as ROS below. Patient started to having dizziness the night before ER, and had a fell at home, unwitnessed however no LOC/hitting head, and got back up and went ot commode however hard to get up from commode. On admission, Vitals: Stable afebrile, HR 85, RR 18, BP 106/65, 99% RA Physical exam as above -CBC: Mild leukocytosis 11.2, H/H 10/29.8 (Baseline 15.6 in 09/2017), PLT 298 -CMP: Hyperglycemia 295, BUN 37, Cr 1.2 -PT/INR/DDimer: 16.7/1.53 -UA/Microbiology: Stool cultured Salmonella in 2010 -Imagings: CTA AB: NO acute vascular malformation or identifiable source of active bleeding. -EKG: NSR w/o significant ST-T abnormalities. -Last Echo: remotely in 2007 moderate left ventricular hypertrophy with a normal ejection fraction. -Interventions in ER: Vitamin K 10mg IM x 1, NS x 1 Problem list/Assessment/Hospital Course: # Chest pain-cardiology was consulted, they suggested the chest pain could be due to myocardial ischemia which was exacerbated by severe acute anemia. No rise in troponin. Although chest discomfort also be due to GI causes as his stress test was negative for ischemia. Outpatient stress test to follow. -Continue statin, Lovaza. -Patient had palpitations which could be paroxysms of atrial fibrillation that has not been documented . However discontinue Eliquis for 2 weeks as per GI recommendations #Lower GI bleed w/ symptomatic acute normacytic anemia Colonoscopy showed 3 polypectomy clean based ulcers without active bleeding or visible vessel appreciated status post placement of one Hemoclip on each of them. Left-sided diverticulosis without stigmata of recent hemorrhage. -Hold Eliquis for 14 days Notify GI for any recurrent bleeding, but if this doesn't occur consideration should be given to discharge him home later today or in the am. #Diabetes -Continue insulin NovoLog and Levemir Allergies: Coded Allergies: morphine (Intermediate, WIERD FEELING 09/23/15) Disposition Summary Disposition Principal Diagnosis: Lower GI bleed Additional Diagnosis: Atrial fibrillation, chest pain Discharge Disposition: home or self care Discharge Instructions General Discharge Information Code Status: Full Code Patient's Diet: Heart healthy Patient's Activity: As tolerated Follow-Up Instructions/Appts: Please follow-up with your PCP within a week of discharge. Please follow-up with your building manager within 1-2 weeks of the discharge to discussed about the restarting on anticoagulation.We held Eliquis for next 1-2 weeks.(10/23/2017) Please watch for the bleeding. Please check the CBC within a week and show to your PCP please. Please come to the emergency, she started having GI bleed or call Dr. Cuevas. You will need a repeat colonoscopy 1 year. we stopped your aspirin and the lasix. Please discuss with building manager to restart it Medications at Discharge Discharge Medications: Stop taking the following medications: Insulin Glargine, Recombinan (Lantus) 100 U/ML KAREN SC DAILY AMLODIPINE/VALSARTAN/HCTHIAZID (Tdfcw-Yhqyv-Ryzg 10-160-25 MG) (Unknown Strength ) TABLET ORAL DAILY Warfarin Sodium (Warfarin Sodium) 1 MG TABLET ORAL DAILY Qty = 14 Orphenadrine Citrate (Norflex) [address] ORAL TWICE DAILY as needed for BACK PAIN Qty = 20 HYDROMORPHONE HCL (Dilaudid) 2 MG TABLET ORAL Q6HR as needed for PAIN Qty = 15 HYDROMORPHONE HCL (Dilaudid) 2 MG TABLET ORAL EVERY SIX HOURS NEEDED as needed for severe pain Qty = 30 OXYCODONE HCL/ACETAMINOPHEN (Percocet 10-325 MG Tablet) 325 MG/10 MG TAB ORAL EVERY 8 HOURS as needed for PAIN Qty = 10 Furosemide (Lasix) 20 MG TAB ORAL TWICE DAILY as needed for LOWER EXTREMITY SWELLING Qty = 6 Furosemide (Lasix) 20 MG TAB ORAL DAILY Qty = 3 Ondansetron (Zofran Odt) 4 MG TAB.RAPDIS ORAL 4 TIMES A DAY as needed for NAUSEA Qty = 10 Oxycodone HCl/Acetaminophen (Percocet 5-325 MG Tablet) 1 EACH TABLET ORAL 4 TIMES A DAY as needed for PAIN Qty = 10 Apixaban (Eliquis) 5 MG TABLET ORAL TWICE DAILY Qty = 60 Oxycodone HCl/Acetaminophen (Percocet 5-325 MG Tablet) 1 EACH TABLET ORAL EVERY SIX HOURS NEEDED as needed for Severe pain Qty = 10 Meloxicam (Mobic) 15 MG TABLET ORAL DAILY as needed for PAIN Qty = 10 Aspirin (Ecotrin*) 81 MG TABLET.DR ORAL DAILY Docusate Sodium (Colace) 100 MG CAPSULE ORAL TWICE DAILY Continue taking these medications: Pregabalin (Lyrica) 100 MG CAPSULE 1 Capsule ORAL TWICE DAILY Comments: Last Taken: 10/09 Time: 930AM Niacin (Niaspan) 1,000 MG TAB.ER.24H 1 Tablet ORAL Every night Rosuvastatin Calcium (Crestor) 20 MG TABLET 1 Tablet ORAL DAILY Comments: GIVEN LIPITOR IN HOSPITAL Last Taken: 10/08 Time: 5PM Fenofibrate (Fenofibrate) 160 MG TABLET 1 Tablet ORAL DAILY Comments: Last Taken: 10/09 Time: 930AM Doss-3 Acid Ethyl Esters (Lovaza) 1 GRAM CAPSULE 2 Capsule ORAL TWICE DAILY Comments: NOT GIVEN IN HOSPITAL Insulin Detemir (Levemir Flextouch) 100 UNIT/1 ML INSULN.PEN 30 Units SC DAILY Qty = 15 Comments: Last Taken: 10/09 Time: 930AM Docusate Sodium (Colace) 100 MG CAPSULE 1 Capsule ORAL TWICE DAILY Qty = 60 Comments: NOT GIVEN IN HOSPITAL Metformin HCl (Glucophage) 1,000 MG TABLET 1 Tablet ORAL TWICE DAILY Comments: NOT GIVEN IN HOSPITAL Nifedipine (Nifedipine ER) 60 MG TAB.ER.24 1 Tablet ORAL DAILY Comments: Last Taken: 10/09 Time: 930AM Valsartan (Valsartan) 160 MG TABLET 1 Tablet ORAL DAILY Comments: GIVEN LOSARTAN IN HOSPITAL Last Taken: 10/09 Time: 930AM Hydralazine HCl (Hydralazine HCl) 25 MG TABLET 3 Tablet ORAL TWICE DAILY Comments: Last Taken: 10/08 Time: 10PM Chlorthalidone (Chlorthalidone) 50 MG TABLET 1 Tablet ORAL DAILY Comments: Last Taken: 10/09 Time: 930AM Dapagliflozin Propanediol (Farxiga) 5 MG TABLET 1 Tablet ORAL DAILY Comments: NOT GIVNE IN HOSPITAL Dulaglutide (Trulicity) 1.5 MG/0.5 ML PEN.INJCTR 1 Dose INJECTABLE Q WEEK Comments: NOT GIVEN IN HOSPITAL Na Amee Esposito-B/Jie Oakley-Ba (Fleet Enema) 19 GRAM-7 GRAM/118 ML ENEMA 1 Enema RECTAL DAILY as needed for Constipation Comments: NOT GIVEN IN HOSPITAL Copies To: Chelsi Schwartz APRN; Mason ASTORGA,Bulmaro Mcelroy MD PHD,Yovany Martell
== END 2017-10-09 17:49 | DRG 378 ==
LOC: ERH 03:30 → ERHI 04:32 → 1NO 04:32 → ENRESERV 05:01 → 2NA 06:04 → 1NO 10-08 11:05 → ENTRNSPT 10-09 17:34 → EDTRNSPTSTS 10-09 17:45 → EDTRNSPT 10-09 17:45 → 1NO 10-09 17:49 → CMPTRNSPT 10-09 17:59
PROVIDERS: Emergency Medicine; Internal Medicine Adolescent Medicine; Physical Medicine & Rehabilitation; Student in an Organized Health Care Education/Training Program
PROC: 0W3P8ZZ Control Bleeding in Gastrointestinal Tract, Via Natural or Artificial Opening Endoscopic (ICD-10-PCS; 2017-10-08)
PROC: 30233N1 Transfusion of Nonautologous Red Blood Cells into Peripheral Vein, Percutaneous Approach (ICD-10-PCS; principal; 2017-10-09)
DX: K92.2 Gastrointestinal hemorrhage, unspecified (principal); D68.32 Hemorrhagic disorder due to extrinsic circulating anticoagulants; D62 Acute posthemorrhagic anemia; K92.1 Melena; I48.91 Unspecified atrial fibrillation; Z79.01 Long term (current) use of anticoagulants; I10 Essential (primary) hypertension; E78.5 Hyperlipidemia, unspecified; W19.XXXA Unspecified fall, initial encounter; Z91.81 History of falling; E66.9 Obesity, unspecified; Z68.28 Body mass index [BMI] 28.0-28.9, adult; T45.515A Adverse effect of anticoagulants, initial encounter; I25.10 Atherosclerotic heart disease of native coronary artery without angina pectoris; I69.334 Monoplegia of upper limb following cerebral infarction affecting left non-dominant side; E11.65 Type 2 diabetes mellitus with hyperglycemia; Z79.4 Long term (current) use of insulin; Z79.84 Long term (current) use of oral hypoglycemic drugs; Z87.442 Personal history of urinary calculi; M19.90 Unspecified osteoarthritis, unspecified site; D53.9 Nutritional anemia, unspecified; R42 Dizziness and giddiness; R55 Syncope and collapse; Z95.5 Presence of coronary angioplasty implant and graft; K64.8 Other hemorrhoids; K63.5 Polyp of colon
CPT/HCPCS: 1NSP; 2NAP; 36592; 74174; 82436; 86920; 93005; 93010; 96372; 99291; J7042; P9016

== ENCOUNTER 2017-10-10 12:58 | Observation (INO) | payer OTHER, MEDICARE ==
[~2017-10-10] VITALS: Ht 172.7 cm; Wt 125.4 kg
[~2017-10-10 12:58] MED LIST changes: +ASPIRIN EC81 M1 PO; +CHLORTHALIDONE50 M1 PO; +FARXIGA5 M1 PO; +FLEET ENEMA133 ML RC; +GLUCOPHAGE1000 M1 PO; +HYDRALAZINE HCL25 M1 PO; +NIFEDIPINE ER60 M2 PO; +TRULICITY1.5 MG/0.5 INJ; +VALSARTAN160 M1 PO
[2017-10-10 14:02] LABS: ABSOLUTE BASOPHIL COUNT 0 /CUMM (0.0-0.2); ABSOLUTE EOSINOPHIL COUNT 0.3 /CUMM (0.0-0.7); ABSOLUTE GRANULOCYTE CT 5.8 /CUMM (1.4-6.5); ABSOLUTE LYMPH COUNT 1.6 /CUMM (1.2-3.4); ABSOLUTE MONOCYTE COUNT 0.5 /CUMM (0.10-0.60); BASOPHIL % 0.6 % (0.0-2.0); EOSINOPHIL % 3.2 % (0-5); HEMATOCRIT 27.9 % (42-52); MEAN CORPUSCULAR HGB 28.1 PG (27.0-31.0); MEAN CORPUSCULAR HGB CONC 33.2 G/DL (33.0-37.0); MEAN CORPUSCULAR VOLUME 84.9 FL (80.0-94.0); MEAN PLATELET VOLUME 8.3 FL (7.4-10.4); PLATELET COUNT 278 /CUMM (130-400); RBC DISTRIBUTION WIDTH 14.5 % (11.5-14.5); RED BLOOD CELL CT 3.28 /CUMM (4.70-6.10); WHITE BLOOD CELL COUNT 8.1 /CUMM (4.8-10.8)
[2017-10-10 14:17] LABS: PT 10.1 SEC (9.4-12.5); PTT 28 SEC (25-37)
--- NOTE | 2017-10-10 14:31 | ED GENERAL ADULT ---
History of Present Illness General Chief Complaint: General Adult Stated Complaint: SIB DR SIMON HEAD SCAN BLURRED VISION ?STROBEY? Source: patient Exam Limitations: no limitations Vital Signs & Intake/Output Vital Signs & Intake/Output Vital Signs Date Time Temp Pulse Resp B/P B/P Pulse O2 O2 Flow FiO2 Mean Ox Delivery Rate 10/10 2024 84 18 147/77 97 Room Air 10/10 1809 76 18 111/55 96 Room Air 10/10 1700 74 18 141/78 99 Room Air 10/10 1515 75 18 157/67 97 Room Air 10/10 1500 Room Air 10/10 1303 97.9 74 18 102/67 99 Room Air Allergies Coded Allergies: morphine (Intermediate, WIERD FEELING 09/23/15) Reconcile Medications Chlorthalidone 50 MG TABLET 1 TAB PO DAILY HTN (Reported) Dapagliflozin Propanediol (Farxiga) 5 MG TABLET 1 TAB PO DAILY DM (Reported) Docusate Sodium (Colace) 100 MG CAPSULE 1 CAP PO BID constipation Dulaglutide (Trulicity) 1.5 MG/0.5 ML PEN.INJCTR 1 DOSE INJ Q WEEK DM ( Reported) Fenofibrate 160 MG TABLET 1 TAB PO DAILY HLD (Reported) Hydralazine HCl 25 MG TABLET 3 TAB PO BID HTN (Reported) Insulin Detemir (Levemir Flextouch) 100 UNIT/1 ML INSULN.PEN 30 U SC DAILY DIABETES (Reported) Metformin HCl (Glucophage) 1,000 MG TABLET 1 TAB PO BID DM (Reported) Na Phos,M-B/Na Phos,Di-Ba (Fleet Enema) 19 GRAM-7 GRAM/118 ML ENEMA 1 E RC DAILY PRN Constipation (Reported) Niacin (Niaspan) 1,000 MG TAB.ER.24H 1 TAB PO QPM HLD (Reported) Nifedipine (Nifedipine ER) 60 MG TAB.ER.24 1 TAB PO DAILY HTN (Reported) [place]-3 Acid Ethyl Esters (Lovaza) 1 GRAM CAPSULE 2 CAP PO BID SUPPLEMENT ( Reported) Pregabalin (Lyrica) 100 MG CAPSULE 1 CAP PO BID Leg burning/Neuropathy ( Reported) Rosuvastatin Calcium (Crestor) 20 MG TABLET 1 TAB PO DAILY HLD (Reported) Valsartan 160 MG TABLET 1 TAB PO DAILY HTN (Reported) Triage Note: 57 YEAR OLD MALE SENT TO ED FROM DR SIMON FOR COMPLAINTS OF BILATERAL EYES " STROBING" STATES THAT HE HAS BEEN SEEING FLASHING LIGHTS CONSTANT SINCE THIS AM, ALSO STATES THAT HE HAS A SLIGHT HEADACHE ( FOREHEAD AREA) PT WAS DISCHARGED FROM HOSPITAL LAST PM AFTER HAVING GI BLEED. PT STATES THAT EVEN WWITH EYES CLOSED HE IS HAVING SYMPTOMS. PT UNABLE TO MOVE L ARM, THIS IS BASELINE FROM PAST STROKE 10 YEARS AGO. Triage Nurses Notes Reviewed? yes Onset: Abrupt Duration: hour(s): Timing: recent history HPI: 10/10/17 7 pm 57-year-old male presents to the emergency department for visual disturbance. According to the patient he was discharged yesterday after GI bleed. He has a history of CVA , and paroxysmal A. fib in the past. His anticoagulation was discontinued, because of the GI bleed. He woke up this morning with bilateral visual disturbances, he describes it as a fluctuation or strobe light effect in both eyes. When he shuts the eyes he sees it, is constant. He does have a history of mild proptosis in the left eye, and has a strabismus, with chronic left rotary nystagmus. Visual acuity was 20/70. He has no new lower extremity or upper extremity weakness. No pain in the eye, although he did have a slight headache. No chest pain or fever. Past History Travel History Traveled to [place] past 21 day No Medical History Any Pertinent Medical History? 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 No Review of Systems Review of Systems Constitutional: Denies: fever. EENTM: Reports: see HPI. Respiratory: Denies: short of breath. Cardiovascular: Denies: chest pain. GI: Denies: abdominal pain. Genitourinary: Reports: no symptoms. Musculoskeletal: Reports: no symptoms. Skin: Reports: no symptoms. Neurological/Psychological: Reports: see HPI. Hematologic/Endocrine: Reports: no symptoms. Immunologic/Allergic: Reports: no symptoms. Physical Exam Physical Exam General Appearance: alert, awake, anxious, mild distress Head: atraumatic Eyes: Bilateral: PERRL, EOMI. 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 Old. Skin: intact, normal color, warm/dry Comments: On physical exam his extraocular muscles are intact however he does have some weakness to the left eye on medial gaze. This is chronic. He also has intermittent left rotary nystagmus. This is also chronic. No cloudy cornea. Pupils are reactive. No visual field cut. CT of the head shows old lacunar infarct. CT angiogram negative for large vessel occlusion. Core Measures ACS in differential dx? No CVA/TIA Diagnosis: Yes NIH Stroke Scale (24 Hours) NIH Stroke Scale (24 Hours) Response Value Level of Consciousness alert 0 LOC Questions answers both correctly 0 LOC Commands obeys both correctly 0 Best Gaze normal 0 Visual Garcia no visual loss 0 Facial Paresis normal 0 Motor Arm - Left no drift 0 Motor Arm - Right no drift 0 Motor Leg - Left no drift 0 Motor Leg - Right no drift 0 Limb Ataxia no ataxia 0 Sensory normal 0 Best Language no aphasia 0 Dysarthria normal articulation 0 Extinction and Inattention no neglect 0 Total 0 Date Last Known Well: 10/09/17 Symptom start date: 10/10/17 tPA Risk/Benefit discussion I have discussed the risks, benefits, and alternatives of Alteplase treatment including: - If given promptly, can resolve or have major improvement in stroke symptoms. - Bleeding (hemorrhage) is the most common risk that can occur. - Bleeding may occur into the brain and cause~superintendent container terminal serious disability~ including - this is rare, affecting about 1% of patients. - Alternative treatments with proven benefit for patients with stroke include aspirin and care in a specialized unit where staff members pay careful attention to a variety of basic aspects of care. tPA given? No Reason tPA not given Medical Contraindication Swallow Evaluation Pass Sepsis Present: No Sepsis Focused Exam Completed? No Progress Differential Diagnoses I considered the following diagnoses in my evaluation of the patient: [Glaucoma, TIA, CVA, adverse drug reaction] Plan of Care: Orders Procedure Date/time Status Regular Diet 10/11 B Active Patient Data 10/10 2040 Active OXYGEN SETUP (GEN) 10/10 2020 Active Saline Lock 10/10 2020 Active Admit to inpatient 10/10 2020 Active Vital Signs 10/10 2020 Active Activity/Ambulation 10/10 2020 Active Code Status 10/10 2020 Active Intake & Output 10/10 1417 Active TROPONIN LEVEL 10/10 130 Complete PARTIAL THROMBOPLASTIN TIME 10/10 130 Complete PROTHROMBIN TIME 10/10 130 Complete COMPREHENSIVE METABOLIC PANEL 10/10 130 Complete CBC WITHOUT DIFFERENTIAL 10/10 130 Complete EKG 10/10 130 Active Current Medications Sig/Rey Start time Last Medication Dose Stop Time Status Admin Sodium Chloride 1,000 ML ONCE ONE 10/10 1800 AC 10/10 (Normal Saline 0.9%) 10/11 0039 1809 Laboratory Tests 10/10/17 1326: Anion Gap 7, Estimated GFR > 60, BUN/Creatinine Ratio 16.4, Glucose 203 H, Calcium 9.2, Total Bilirubin 0.3, AST 15 L, ALT 20 L, Alkaline Phosphatase 38, Troponin I < 0.01, Total Protein 5.8 L, Albumin 3.4 L, Globulin 2.4, Albumin/ Globulin Ratio 1.4, PT 10.1, INR 0.93, APTT 28, CBC w Diff NO MAN DIFF REQ, RBC 3.28 L, MCV 84.9, MCH 28.1, MCHC 33.2, RDW 14.5, MPV 8.3, Gran % 71.0, Lymphocytes % 19.4 L, Monocytes % 5.8, Eosinophils % 3.2, Basophils % 0.6, Absolute Granulocytes 5.8, Absolute Lymphocytes 1.6, Absolute Monocytes 0.5, Absolute Eosinophils 0.3, Absolute Basophils 0 Initial ED EKG: NSR Departure Departure Disposition: STILL A PATIENT Condition: Stable Clinical Impression Primary Impression: Visual disturbance Secondary Impressions: CVA (cerebral vascular accident) Referrals: Chelsi Schwartz APRN (PCP/Family) Departure Forms: Customer Survey General Discharge Information Admission Note Spoke With: Hal Goode MD Documentation of Exam: Documentation of any treatments & extenuating circumstances including Concerns Regarding Discharge (functional status, medication knowledge or non-compliance, living conditions, etc.) that warrant an admission rather than observation: [The patient needs admission for telemetry monitoring, neurology consultation, consider MRI however the patient is claustrophobic, the case was discussed with Dr. Castro, and with Dr. Collins] Critical Care Note Critical Care Note Critical Care Time: non-applicable
--- NOTE | 2017-10-10 15:05 | CT SCAN REPORT ---
EXAMINATION: CT HEAD WITHOUT CONTRAST CLINICAL INFORMATION: Blurry vision. ICH/mass. COMPARISON: Head CT 09/21/2015. TECHNIQUE: Contiguous axial imaging was performed from the skull base to vertex without intravenous administration of contrast. DLP: 701 mGy-cm. FINDINGS: There is no intracranial hemorrhage, large infarction, or mass lesion. There is no extra-axial collection. The ventricles are normal in size and configuration without evidence of hydrocephalus. There is a chronic lacunar infarct in the right lentiform nucleus, unchanged from prior. There is a perivascular space in the left inferior basal ganglia at the level of the anterior commissure. The visualized paranasal sinuses and mastoid air cells are clear. Both globes are proptotic but unchanged compared to prior. There is a subperiosteal lipoma in the left frontal scalp. There are atherosclerotic calcification of the carotid siphons and vertebral arteries. IMPRESSION: - No acute intracranial abnormality. - Redemonstration of small lacunar infarct in the right lentiform nucleus. - Redemonstration of bilateral proptosis.
--- NOTE | 2017-10-10 19:16 | CT SCAN REPORT ---
EXAMINATION: CT ANGIOGRAM NECK WITH CONTRAST CT ANGIOGRAM BRAIN WITH CONTRAST CLINICAL INFORMATION: Visual change. Rule out posterior CVA. Rule out large vessel occlusion. COMPARISON: Head CT performed earlier the same day. TECHNIQUE: Test bolus sequences followed by intravenous administration 95 mL of Optiray 320. Helical imaging was performed in the axial plane from the thoracic inlet to the skull vertex. The data was processed at the communications technologist workstation for generation of MIP sequences. Angled MIPs and volume rendered reformatted images were also generated at an offline 3D workstation. Stenoses are assessed in accordance with NASCET criteria unless otherwise indicated. DLP: 1961 mGy-cm FINDINGS: Postcontrast head CT: There is no intracranial hemorrhage, large acute infarction, or mass lesion. The ventricles are normal in size and configuration without evidence of hydrocephalus. There is a chronic lacunar infarct in the right lentiform nucleus. A perivascular space is seen in the left inferior basal ganglia. The major dural venous sinuses demonstrate normal enhancement without filling defect. The visualized paranasal sinuses and mastoid air cells are clear. Neck CTA: There is a three-vessel, left-sided aortic arch. There is no significant stenosis of the great vessel origins. Atheromatous changes are noted at the bilateral carotid bifurcations but without significant stenosis. The cervical segments of the vertebral arteries are patent with the right side being dominant. Head CTA: The left vertebral artery terminates as a PICA. Atheromatous changes are present along the intradural segment of the right vertebral artery without significant stenosis. The basilar artery is normal in caliber. Both posterior cerebral arteries are patent. There is a normal left posterior communicating artery. Atheromatous calcifications are seen at the bilateral carotid siphons without significant stenosis. The anterior and middle cerebral arteries are patent. No proximal vessel occlusion is seen. There is no evidence of intracranial aneurysm. Non-vascular findings: The visualized lung apices are clear. The cervical spine demonstrates multilevel degenerative changes. No mass or fluid collection is identified within the neck. IMPRESSION: CT head: - No intracranial hemorrhage or large acute infarction. CTA neck: - No hemodynamically significant stenosis in the major arteries of the neck. CTA head: - No large vessel occlusion or significant stenosis within the intracranial circulation.
--- NOTE | 2017-10-10 20:54 | History & Physical ---
Branden Robins 10/10/172040: General Information and HPI MD Statement: I have seen and personally examined NICKIE HERMAN and documented this H& P. The patient is a 57 year old M who presented with a patient stated chief complaint of . 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 Patient recently had a colonoscopy from Dr. Cuevas on 09/25/17 with removal of 12 polyps of tubular adenoma pathology and demonstration of mild diverticulosis. Eliquis was advised to be held 2 weeks after discharge at the discretion of Dr. Mcelroy (Cardiology) and Dr. Cuevas (GI). Patient had chest pain at that time with negative troponins. Recently risk stratified with a stress test that was negative for ischemia with recent ECHO EF 60%. On this admission, patient is presenting one day after discharge after being seen by Dr. Mcelroy for complaints of eyes in "strobing and flickering" complaining of seeing flashing lights this morning with associated headache. Patient states the event started at 9AM and has been present until his arrival to the ED (12 hours) . He states he could not see or read properly during this time. He claims he has a history of Glaucoma (unsure of type) that was diagnosed 5 years ago. Patient last seen his ophthomologist 3 years ago and was supposed to follow up yearly. Otherwise, patient denied any dizziness, light headedness, loss of conciousness, slurred speech, chest pain or shortness of breath. He has had a recent fall prior to last admission early sunday morning where his "legs gave out" but no head trauma at that time. Patient has known residual weakness in the left upper and lower extremity (Left > Right) since his CVA in 2008. Patient has noted his blood sugars have been recently fluctuating and claiming he is urinating and drinking more fluids than usual. Patient denies smoking history. Drinks 3 "abdirizak size" 25 ounce beers every other day with last drink this past 1 week ago. PCP: Chelsi Schwartz APRN Assistant Prosecuting Attorney: Dr. Mcelroy Certified Technician: Dr. Griffiths (DM, possible Graves (proptosis) Allergies/Medications Allergies: Coded Allergies: morphine (Intermediate, WIERD FEELING 09/23/15) Home Med list Chlorthalidone 50 MG TABLET 1 TAB PO DAILY HTN (Reported) Dapagliflozin Propanediol (Farxiga) 5 MG TABLET 1 TAB PO DAILY DM (Reported) Docusate Sodium (Colace) 100 MG CAPSULE 1 CAP PO BID constipation Dulaglutide (Trulicity) 1.5 MG/0.5 ML PEN.INJCTR 1 DOSE INJ Q WEEK DM ( Reported) Fenofibrate 160 MG TABLET 1 TAB PO DAILY HLD (Reported) Hydralazine HCl 25 MG TABLET 3 TAB PO BID HTN (Reported) Insulin Detemir (Levemir Flextouch) 100 UNIT/1 ML INSULN.PEN 30 U SC DAILY DIABETES (Reported) Metformin HCl (Glucophage) 1,000 MG TABLET 1 TAB PO BID DM (Reported) Na Phos,M-B/Na Phos,Di-Ba (Fleet Enema) 19 GRAM-7 GRAM/118 ML ENEMA 1 E RC DAILY PRN Constipation (Reported) Niacin (Niaspan) 1,000 MG TAB.ER.24H 1 TAB PO QPM HLD (Reported) Nifedipine (Nifedipine ER) 60 MG TAB.ER.24 1 TAB PO DAILY HTN (Reported) Fanrock-3 Acid Ethyl Esters (Lovaza) 1 GRAM CAPSULE 2 CAP PO BID SUPPLEMENT ( Reported) Pregabalin (Lyrica) 100 MG CAPSULE 1 CAP PO BID Leg burning/Neuropathy ( Reported) Rosuvastatin Calcium (Crestor) 20 MG TABLET 1 TAB PO DAILY HLD (Reported) Valsartan 160 MG TABLET 1 TAB PO DAILY HTN (Reported) Past History Travel History Traveled to [place] past 21 day No Medical History Neurological: CVA EENT: glaucoma Cardiovascular: hypertension, hyperlipidemia Respiratory: NONE Gastrointestinal: lower GI bleed Hepatic: NONE Renal: hematuria, KIDNEY STONES Musculoskeletal: ARTHRITIS R HIP PAIN Psychiatric: NONE Endocrine: diabetes Blood Disorders: NONE Cancer(s): NONE MEDICAL TERMINOLOGIST/Reproductive: NONE History of MRSA: No History of VRE: No History of CDIFF: No Surgical History Surgical History: LITHOTRIPSY Past Family/Social History Psychosocial History Services at Home: None Smoking Status: Never Smoked ETOH Use: denies use Illicit Drug Use: denies illicit drug use Review of Systems Review of Systems Constitutional: Denies: see HPI. Exam & Diagnostic Data Last 24 Hrs of Vital Signs/I&O Vital Signs Date Time Temp Pulse Resp B/P B/P Pulse O2 O2 Flow FiO2 Mean Ox Delivery Rate 10/10 2024 84 18 147/77 97 Room Air 10/10 1809 76 18 111/55 96 Room Air 10/10 1700 74 18 141/78 99 Room Air 10/10 1515 75 18 157/67 97 Room Air 10/10 1500 Room Air 10/10 1303 97.9 74 18 102/67 99 Room Air Intake & Output 10/10 1600 10/10 0800 10/10 0000 Intake Total Output Total Balance Patient 275 lb Weight Physical Exam General Appearance Alert, Oriented X3, Cooperative HEENT Atraumatic, PERRLA, EOMI, Mucous Membr. moist/pink, Ophthalmascope exam benign Neck Supple, No JVD, No thryomegaly Cardiovascular Regular Rate, Normal S1, Normal S2 Lungs Clear to Auscultation, Normal Air Movement Abdomen Normal Bowel Sounds, Soft, No Tenderness Neurological Normal Speech, Normal Tone, Cranial Nerves 3-12 NL, Reflexes 2+, Strength 2/5 in left upper extremity; 3/5 left lower extremity (drags) Strength 5/5 in right upper/lower extremity Reflexes intact Normal sensation Extremities No Clubbing, No Cyanosis, Trace pedal edema Vascular Normal Pulses, Pulses Symmetrical Last 24 Hrs of Labs/Ap: Laboratory Tests 10/10/17 1326: Anion Gap 7, Estimated GFR > 60, BUN/Creatinine Ratio 16.4, Glucose 203 H, Calcium 9.2, Total Bilirubin 0.3, AST 15 L, ALT 20 L, Alkaline Phosphatase 38, Troponin I < 0.01, Total Protein 5.8 L, Albumin 3.4 L, Globulin 2.4, Albumin/ Globulin Ratio 1.4, PT 10.1, INR 0.93, APTT 28, CBC w Diff NO MAN DIFF REQ, RBC 3.28 L, MCV 84.9, MCH 28.1, MCHC 33.2, RDW 14.5, MPV 8.3, Gran % 71.0, Lymphocytes % 19.4 L, Monocytes % 5.8, Eosinophils % 3.2, Basophils % 0.6, Absolute Granulocytes 5.8, Absolute Lymphocytes 1.6, Absolute Monocytes 0.5, Absolute Eosinophils 0.3, Absolute Basophils 0 Diagnostic Data EKG Results NSR 71, First degree AV block [place] 216, QTC 422 Assessment/Plan Assessment: Patient is a 57 year old male with pmh of 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 Patient just had a colonoscopy from Dr. Cuevas 09/25 with 12 polyps removed of tubular adenoma without evidence of invasive CA, mild diverticulosis. Eliquis at that time was held 2 days prior and 2 days after colonoscopy. Eliquis was advised to be held 2 weeks after discharge and aspirin. Patient sent to ED from Dr. Mcelroy today for complaints of eyes in strobing states seeing flashing lights this morning with headache since 9AM. No new weakness, facial droop or slurred speech. Left arm weakness baseline from past stroke 10 years ago. Head, NECK CT/CTA negative. EMERGENCY DEPARTMENT: Normal Saline 1L X1 Vitals:97.9, 74, 18, 102/67 (went up to 147/77), 99%RA Troponin: 0.01 EKG: NSR 71, FIrst degree block [place] 216, QT CBC: WBC: 8.1, Hgb: 9.2, Hct: 27.9, Plt: 278 Chemistry: Na: 138, K 4.1, Cl 104, CO2 26, BUN 18, Cr: 1.1, Glucose 203 AST: 15L; ALT: 20 HgbA1c: 7.[address]: - No acute intracranial abnormality. - Redemonstration of small lacunar infarct in the right lentiform nucleus. - Redemonstration of bilateral proptosis. CTA neck: - No hemodynamically significant stenosis in the major arteries of the neck. CTA head: - No large vessel occlusion or significant stenosis within the intracranial circulation PROBLEM LIST: 1. New Visual Disturbances 2. Recent GI Bleed s/p polypectomy/colonoscopy 3. Diabtes Mellitus 4. Hypertension 5. Hyperlipidemia New Onset Visual Disturbances/R/O TIA Patient woke up this morning 1 day after discharge of lower GI bleed with "flashing/strobing" visual disturbances. No facial droop, slurred speech, LOC noted. Negative head imaging. Risk of TIA given recent discharge after lower GI bleed and holding patients anticoagulant (eliquis and aspirin). * Admit to telemetry for further monitoring * Neurology consultation in AM * Ophthomology consultation * q4 Neuro-checks * EEG for underlying seizure disorder * Hold ASA/Eliquis given recent GI bleed Recent GI Bleed S/P Polypectomy/Colonoscopy Patient discharged 10/09/17 after lower GI bleed and polypectomy/colonoscopy x2 by Dr. Cuevas (GI). Patient advised to discontinue eliquis and aspirin for 2 weeks. Recent bowel movement with blood this past sunday. No complaint of bloody bowel movement since 3 days ago. * Monitor H/H * Monitor for bloody bowel movements * Hold eliquis/aspirin for now Diabetes Mellitus Patient noticed his sugars have been high and fluctuating. Increased urination and thirst reported. Recent HbA1c 7.7. * Accu-Checks * ISS Hypertension * Continue home medicaitons: losartan, nifedipine, chlorthalidone Hyperlipidemia * continue home meds; fenofibrate, atorvastatin Code Status: Full Code DVT PPx: Held given recent GI bleed; ALPS Diet: Consistent Carbohydrate 3 As Ranked By This Provider Problem List: 1. Atrial fibrillation 2. GI bleed 3. Visual disturbance 4. Diabetes 5. Hyperlipidemia Core Measures/Misc (11/19) Acute Coronary Syndrome ACS Diagnosis: No Congestive Heart Failure Congestive Heart Failure Diagnosis No Cerebrovascular Accident CVA/TIA Diagnosis: No VTE (View Protocol) VTE Risk Factors Age>40 No Mechanical VTE Prophylaxis d/t N/A MechProphylax Ordered No VTE Pharm Prophylaxis d/t NA PharmProphylax ordered Sepsis (View protocol) Sepsis Present: No If YES complete Sepsis Event Note If YES complete Sepsis Event Note Val Vasques 10/10/17 2239: Core Measures/Misc (11/19) Sepsis (View protocol) If YES complete Sepsis Event Note If YES complete Sepsis Event Note Resident Review Statement Resident Statement: examined this patient, discussed with ad operations intern, agreed with ad operations intern, discussed with family Other Findings: 57-year-old male with past medical history significant for hypertension, hyperlipidemia, lower GI bleed status post colonoscopy on you on 10/08, CVA in 2019 with prominent left upper and lower extremity weakness, glaucoma, came with a chief complaint of bilateral flashes since he woke up this morning. Patient went to see Dr. Mcelroy and he was advised to come to ER. Of note, patient has a past medical history of glaucoma, last followed up with an chief of service was 2-3 years ago, patient is not on any glaucoma medication. Patient reports that he has never had these symptoms before, and symptoms were not associated with any headache/dizziness/slurring of speech/motor weakness or loss of sensation. Patient did to report of slight headache to ER staff earlier. 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 His visual acuity was checked in ER which was 20/70 and the patient reported that he cannot clearly see or read the alphabets. Patient denies any eye pain. Patient has a permanent weakness of his left upper and lower extremities from his stroke in 2008, patient reports that his weakness has not progressed since then and he is able to walk independently by dragging his left leg. Patient states that he has not had any GI bleed since his colonoscopy. He was advised to discontinue and eliquis and aspirin for a total of 14 days. Per old records, patient was taking eliquis for paroxysmal A. fib. Labs and vitals as above CT head, CT and neck, CTA head normal EKG shows normal sinus rhythm heart rate 72, no ST changes, [place] interval prolonged to 216 showing first-degree heart block Assessment and plan We'll admit the patient on telemetry floor for closer monitoring, given his history of CVA and that he was off anticoagulation with underlying paroxysmal A. fib, we need to rule out any TIA/ischemic stroke. Every 4 hr neuro checks. Patient would need an ophthalmology consult as his symptoms could be due to papilledema versus imminent retinal detachment versus worsening of glaucoma, however patient denies any tunnel vision or eye pain.. Ophthalmology service was called from ER, and they think it is unlikely due to ocular causes. Will restart rest of patient's medications including fenofibrate, losartan, atorvastatin, nifedipine, chlorthalidone. We'll hold his oral hypoglycemic agents and start the patient on NovoLog sliding scale. We'll continue to hold aspirin andEliquis for now. Neurology evaluation in a.m. Will obtain an EEG to evaluate for any underlying seizure disorder. DVT ppx sc heprin Patient is full code. Quniton Greenwood MD 10/11/17 0258: Core Measures/Misc (11/19) Sepsis (View protocol) If YES complete Sepsis Event Note If YES complete Sepsis Event Note Attending MD Review Statement Attending Statement Attending MD Statement: examined this patient, discuss w/resident/PA/FINAL ASSEMBLY WORKER, agreed w/resident/PA/FINAL ASSEMBLY WORKER Attending Assessment/Plan: Patient is seen and examined independently by me. Care plan discussed with chief medical director and resident. I agree with the physical exam findings and plan of care as outlined above with the following changes and additions. 57 yo male with history of CAD s/p PCI 2007, CVA with residual LUE paresis 2008, DM, HTN, HLD, glaucoma, PAF off Eliquis (for 2 weeks as per GI) due to recent lower GI bleed, colonic tubular adenoma, diverticulosis. Patient was last hospitalized 10/07-10/09/17 for lower GI bleed after 09/25 colonoscopy with colonic polyps removal. He discharged last night with advice of holding ASA and Eliquis for about 2 weeks due to his lower GI bleed. This morning at about 9 am, he has bilateral visual disturbance with seeing flashes of white light. He is not able to see things clearly due to these white flashes. There are no dark spots or floaters. He has no eye pain. The white flashes resolved in about 12 hrs and he now states he is able to see at his baseline. He has chronic LUE weakness and denies new weakness or numbness. He also denies fever, chills, chest pain, palpitation, dizziness, lightheadedness, SOB or diaphoresis. On exam, eye: bilateral proptosis (chronic as per patient), EOMI, PERRLA, fundal exam did not appreciate retinal detachment (non dilated exam). Neuro: Alert and oriented x3, sensory grossly intact and equal bilaterally. Left upper arm weakness with poor hand customer success advocate but able to raise left arm (chronic). Other extremities 5/5 muscle strength. In the ED, chief of service was called and felt that this is not an eye etiology. H/H 9.2/27.9 (Hb 8.5 on 10/09/17). INR 0.93. PTT 28. EKG shows NSR at 71 with first degree AVB and no significant ST-T changes when compares with previous EKG. CT head shows no acute infarct, bleed or mass effect. There is chronic lacunar infarct in the right lentiform nucleus. CTA head and neck shows no significant stenosis or occlusion. Patient is admitted to [facility] for TIA. His presenting symptoms with white flashing light and visual disturbances is atypical for TIA. CT head and CTA head/neck show no acute changes. Check EEG to r/o seizure activity. Continue to hold ASA and anticoagulation due to recent lower GI bleed. Continue statin. Patient is now in NSR, monitor for A fib. Follow H/H. Check TSH and free T4. Neuro consult. Ophthalmology consult. Quinton Greenwood MD FACP
[2017-10-10 22:49] VITALS: BP 126/58
[2017-10-11 06:46] VITALS: BP 122/66
[2017-10-11 08:15] LABS: ABSOLUTE BASOPHIL COUNT 0 /CUMM (0.0-0.2); ABSOLUTE EOSINOPHIL COUNT 0.3 /CUMM (0.0-0.7); ABSOLUTE GRANULOCYTE CT 4.6 /CUMM (1.4-6.5); ABSOLUTE LYMPH COUNT 2.3 /CUMM (1.2-3.4); ABSOLUTE MONOCYTE COUNT 0.5 /CUMM (0.10-0.60); BASOPHIL % 0.5 % (0.0-2.0); GRANULOCYTE % 59.5 % (42.2-75.2); HEMATOCRIT 24.8 % (42-52); MEAN CORPUSCULAR HGB 28.5 PG (27.0-31.0); MEAN CORPUSCULAR HGB CONC 33.3 G/DL (33.0-37.0); MEAN CORPUSCULAR VOLUME 85.6 FL (80.0-94.0); MEAN PLATELET VOLUME 8.1 FL (7.4-10.4); PLATELET COUNT 237 /CUMM (130-400); RBC DISTRIBUTION WIDTH 14.6 % (11.5-14.5); WHITE BLOOD CELL COUNT 7.7 /CUMM (4.8-10.8)
--- NOTE | 2017-10-11 09:51 | Cons- Cardiology ---
General Information and HPI Consulting Request Date of Consult: 10/11/17 Requested By: Quinton Greenwood MD History of Present Illness: Patrice is a 57 year old male who carries a history of diabetes, hypertension, severe dyslipidemia and status post right internal capsular stroke, resulting in severe weakness of the left lower extremity and complete paralysis of the left upper extremity. He does have some movement of his fingers in the left upper extremity. Patrice presented to my office yesterday with complaints of a pulsation or strobing in his vision bilaterally without any other focal neurologic deficits. He was in sinus rhythm with a normal blood pressure. It should be noted that he was taken off his anticoagulation three days ago due to a severe GI bleed and it was recommended that he stay off Eliquis for about two weeks. The patient was sent to the ER for further evaluation and Dr. Castro expressed some concern for an impending CVA. His head CT was negative and his symptoms abated at about 2AM last evening. To review his recent history, Patrice was admitted for evaluation and treatment of a rectal bleed that occured following a colonoscopy with multiple biopsies. He stopped his Eliquis for a couple days prior to this procedure. When he restarted the medication bleeding occured. In this setting, Patrice has noted a mild chest pressure upon engaging in minimal physical activity such a going to the bathroom. He is also lightheaded and almost syncopized upon arising. Mild shortness of breath was also noted. In response to some prior chest discomfort this patient was recently risk stratified with a stress test that was negative for ischemia. I prescribed Protonix and his symptoms abated. He has had hypertension for about six months that he did not bring to my attention. On last visit I added Nifedipine ER 60mg daily which has helped. He was previously on Lasix but stopped this medication due to frequent urination. He is now followed by Dr. Griffiths for his diabetes and he was evaluated for possible Graves disease due to his proptosis. He is only mildly active but this is unchanged. Finally, his blood glucose has been poorly controlled but his diabetes medication was recently changed. This patient was recently found to have a renal cyst which is under investigation by Dr. Deluca. His creatinine is normal at 0.9 but his blood glucose remains elevated. The patient did tend to have some right lower extremity swelling which is now resolved. However, a previous ultrasound was negative for any thrombus. The patient's renal function is now within the normal limits, with a creatinine of 1.06. At one time the patient had renal insufficiency in the setting of diarrhea and dehydration. In that setting, back in 2010, the patient also had a borderline rise in his troponin, without any associated symptoms of myocardial ischemia. In consideration of the above, I did risk stratify the patient with an Adenosine stress test. There were no clinical or electrocardiographic findings of myocardial ischemia. His ejection fraction was 67% with mild inferior wall hypokinesis, and there did appear to be a fixed inferior wall defect. Borderline transient ischemic dilatation was also noted. His recent echo shows a normal EF of 60% with moderate LVH and trace to midl AI. Trace MR and TR are also noted. Patrice, due to his stroke, is only mildly active. He can walk at a slow pace and does so without having any untoward symptoms. His last lipid profile showed a direct LDL of less than 30, with an HDL of 29, and triglycerides tremendously elevated to 1188. This has been a significant change since his last lipid profile, which showed a higher LDL of 31, a much lower triglyceride level of 610 , along with a direct LDL of less than 30. It should be noted that the patient' s Crestor was discontinued in favor of Atorvastatin. I have had some suspicions about the possibility of Grave's disease in Patrice, since he does have bilateral proptosis. His TSH was normal at 1.56, with an elevated Free T4 of 11.6. To review past history: This patient previously had supraventricular tachycardia, which was being controlled with Amiodarone at a dose of 200 mg. a day. He was initially seen by me with complaints of a mild non-radiating precordial chest achiness that he had been experiencing over the preceding four months. I felt that this discomfort was atypical; however I subsequently performed a cardiac catheterization. This study showed a normal left main. The LAD harbored luminal irregularities, and appeared to be pruned. The LAD parented a second diagonal branch with a 50% long ostial to proximal stenosis. The left circumflex was a large patent vessel with a diminutive AV groove left circumflex. The right coronary artery was dominant with a 40% mid PDA lesion which did not appear to be flow limiting. Left ventriculography showed an overall EF of 55%. I did not feel that any of this disease was flow limiting, and therefore angioplasty was not pursued. Pruning of the vessels did go along with hypertensive heart disease. Allergies/Medications Allergies: Coded Allergies: morphine (Intermediate, WIERD FEELING 09/23/15) Home Med List: Chlorthalidone 50 MG TABLET 1 TAB PO DAILY HTN (Reported) Dapagliflozin Propanediol (Farxiga) 5 MG TABLET 1 TAB PO DAILY DM (Reported) Docusate Sodium (Colace) 100 MG CAPSULE 1 CAP PO BID constipation Dulaglutide (Trulicity) 1.5 MG/0.5 ML PEN.INJCTR 1 DOSE INJ Q WEEK DM ( Reported) Fenofibrate 160 MG TABLET 1 TAB PO DAILY HLD (Reported) Hydralazine HCl 25 MG TABLET 3 TAB PO BID HTN (Reported) Insulin Detemir (Levemir Flextouch) 100 UNIT/1 ML INSULN.PEN 30 U SC DAILY DIABETES (Reported) Metformin HCl (Glucophage) 1,000 MG TABLET 1 TAB PO BID DM (Reported) Na Phos,M-B/Na Phos,Di-Ba (Fleet Enema) 19 GRAM-7 GRAM/118 ML ENEMA 1 E RC DAILY PRN Constipation (Reported) Niacin (Niaspan) 1,000 MG TAB.ER.24H 1 TAB PO QPM HLD (Reported) Nifedipine (Nifedipine ER) 60 MG TAB.ER.24 1 TAB PO DAILY HTN (Reported) [place]-3 Acid Ethyl Esters (Lovaza) 1 GRAM CAPSULE 2 CAP PO BID SUPPLEMENT ( Reported) Pregabalin (Lyrica) 100 MG CAPSULE 1 CAP PO BID Leg burning/Neuropathy ( Reported) Rosuvastatin Calcium (Crestor) 20 MG TABLET 1 TAB PO DAILY HLD (Reported) Valsartan 160 MG TABLET 1 TAB PO DAILY HTN (Reported) Review of Systems Review of Systems: A review of systems is unremarkable. Past History Travel History Traveled to [place] past 21 day No Medical History Blood Transfusion Hx: Yes Neurological: CVA EENT: glaucoma Cardiovascular: hypertension, hyperlipidemia Respiratory: COPD Gastrointestinal: lower GI bleed Hepatic: NONE Renal: hematuria, KIDNEY STONES Musculoskeletal: ARTHRITIS R HIP PAIN Psychiatric: NONE Endocrine: diabetes Blood Disorders: NONE Cancer(s): NONE DOCKING PILOT/Reproductive: NONE Surgical History Surgical History: LITHOTRIPSY Psychosocial History Where Do You Live? Home Services at Home: None Smoking Status: Never Smoked ETOH Use: denies use Illicit Drug Use: denies illicit drug use Exam & Diagnostic Data Vital Signs and I&O Vital Signs Date Time Temp Pulse Resp B/P B/P Pulse O2 O2 Flow FiO2 Mean Ox Delivery Rate 10/11 0902 57 120/60 10/11 0859 57 120/60 10/11 0859 57 120/60 10/11 0646 98.4 62 18 122/66 98 Room Air 10/10 2313 60 126/58 10/10 2249 97.8 70 18 126/58 99 Room Air 10/10 2243 Room Air 10/10 2025 84 18 147/77 97 Room Air 10/10 1809 76 18 111/55 96 Room Air 10/10 1700 74 18 141/78 99 Room Air 10/10 1515 75 18 157/67 97 Room Air 10/10 1500 Room Air 10/10 1303 97.9 74 18 102/67 99 Room Air Intake & Output 10/11 1600 10/11 0800 / 0000 10/10 1600 10/10 0800 10/10 0000 Intake Total 120 Output Total Balance 120 Intake, Oral 120 Patient 276 lb 275 lb Weight Weight Bed scale Measurement Method Physical Exam: General: WD/overweight male in NAD; alert and oriented Skin: pale HEENT: NC/AT, PERRL, EOMI Neck: no JVD, no carotid bruit Heart: RRR with 2/6 systolic murmur at the LUSB Lungs: clear bilaterally Abdomen: soft, obese, mildly tender, positive bowel sounds Extremities: no edema Assessment/Plan Assessment/Plan * Patrice has symptoms that I initially felt may have been related to a hemodynamic effect of borderline blood pressure but the symptoms persisted even after his pressure yoanna into the mildly hypertensive range. He does feel improved now. I would defer to neurology for their opinion regarding this issue. * This patient has had palpitations which could be brief paroxysms of atrial fibrillation although this has not been documented. He is on Eliquis for stroke prophylaxis due to his prior CVA. He was previously on cardizem for SVT. We will watch this symptoms expectantly. Hold Eliquis for 9 more days and then restart at 5mg BID unless GI feels that this recommendation to hold anticoagulation can be cut short. It should be noted that his H/H has decreased. Consult Acknowledgment - Thank you for your consult request.
--- NOTE | 2017-10-11 10:19 | PN- Housestaff ---
Subjective Follow-up For: floaters infront of the eyes Complaints: pain scale (0-10) (floaters ) Tele-Events Since Last Visit: none Subjective: Patient was at the [facility]; for GI bleed 2 days ago and was discharged and returned with floaters . b/l ,. symptoms have resolved Review of Systems Constitutional: Reports: see HPI. Cardiovascular: Denies: chest pain, edema, orthopena, palpitations. Respiratory: Denies: cough, hemoptysis, orthopnea, short of breath. Gastrointestinal: Denies: abdominal pain, constipation, diarrhea. Genitourinary: Denies: discharge, dysuria, frequency, urgency. Objective Last 24 Hrs of Vital Signs/I&O none done Physical Exam General Appearance: Alert, Oriented X3, Cooperative, No Acute Distress Cardiovascular: Regular Rate, No Murmurs Lungs: Clear to Auscultation, Normal Air Movement Abdomen: Normal Bowel Sounds, Soft, No Tenderness, No Hepatospenomegaly, No Masses Neurological: Normal Speech, Strength at 5/5 X4 Ext, Normal Tone, Sensation Intact Extremities: No Clubbing, No Cyanosis, No Edema, Normal Pulses, No Tenderness/ Swelling Current Medications: -----Home Med list Chlorthalidone 50 MG TABLET 1 TAB PO DAILY HTN (Reported) Dapagliflozin Propanediol (Farxiga) 5 MG TABLET 1 TAB PO DAILY DM (Reported) Docusate Sodium (Colace) 100 MG CAPSULE 1 CAP PO BID constipation Dulaglutide (Trulicity) 1.5 MG/0.5 ML PEN.INJCTR 1 DOSE INJ Q WEEK DM ( Reported) Fenofibrate 160 MG TABLET 1 TAB PO DAILY HLD (Reported) Hydralazine HCl 25 MG TABLET 3 TAB PO BID HTN (Reported) Insulin Detemir (Levemir Flextouch) 100 UNIT/1 ML INSULN.PEN 30 U SC DAILY DIABETES (Reported) Metformin HCl (Glucophage) 1,000 MG TABLET 1 TAB PO BID DM (Reported) Na Phos,M-B/Na Phos,Di-Ba (Fleet Enema) 19 GRAM-7 GRAM/118 ML ENEMA 1 E RC DAILY PRN Constipation (Reported) Niacin (Niaspan) 1,000 MG TAB.ER.24H 1 TAB PO QPM HLD (Reported) Nifedipine (Nifedipine ER) 60 MG TAB.ER.24 1 TAB PO DAILY HTN (Reported) [place]-3 Acid Ethyl Esters (Lovaza) 1 GRAM CAPSULE 2 CAP PO BID SUPPLEMENT ( Reported) Pregabalin (Lyrica) 100 MG CAPSULE 1 CAP PO BID Leg burning/Neuropathy ( Reported) Rosuvastatin Calcium (Crestor) 20 MG TABLET 1 TAB PO DAILY HLD (Reported) Valsartan 160 MG TABLET 1 TAB PO DAILY HTN (Reported) Last 24 Hrs of Lab/Ap Results Last 24 Hrs of Labs/Mics: 10/10/17 1326: Anion Gap 7, Estimated GFR > 60, BUN/Creatinine Ratio 16.4, Glucose 203 H, Calcium 9.2, Total Bilirubin 0.3, AST 15 L, ALT 20 L, Alkaline Phosphatase 38, Troponin I < 0.01, Total Protein 5.8 L, Albumin 3.4 L, Globulin 2.4, Albumin/ Globulin Ratio 1.4, PT 10.1, INR 0.93, APTT 28, CBC w Diff NO MAN DIFF REQ, RBC 3.28 L, MCV 84.9, MCH 28.1, MCHC 33.2, RDW 14.5, MPV 8.3, Gran % 71.0, Lymphocytes % 19.4 L, Monocytes % 5.8, Eosinophils % 3.2, Basophils % 0.6, Absolute Granulocytes 5.8, Absolute Lymphocytes 1.6, Absolute Monocytes 0.5, Absolute Eosinophils 0.3, Absolute Basophils 0 Assessment/Plan Assessment: Patient is a 57 year old male with pmh of CVA in 2008, CAD s/p PCI in 2007, history of A-fib now controlled on Eliquis, DM, HTN, HLD, recently admitted for intermitent bloody stool x10 days and discharged yesterday. Patient just had a colonoscopy from Dr. Cuevas 09/25 with 12 polyps removed of tubular adenoma without evidence of invasive CA, mild diverticulosis. Eliquis at that time was held 2 days prior and 2 days after colonoscopy. Eliquis was advised to be held 2 weeks after discharge and aspirin. Patient sent to ED from Dr. Mcelroy today for complaints of eyes in strobing states seeing flashing lights this morning with headache since 9AM. No new weakness, facial droop or slurred speech. Left arm weakness baseline from past stroke 10 years ago. Head, NECK CT/CTA negative. EMERGENCY DEPARTMENT: Normal Saline 1L X1 Vitals:97.9, 74, 18, 102/67 (went up to 147/77), 99%RA Troponin: 0.01 EKG: NSR 71, FIrst degree block AL 216, QT CBC: WBC: 8.1, Hgb: 9.2, Hct: 27.9, Plt: 278 Chemistry: Na: 138, K 4.1, Cl 104, CO2 26, BUN 18, Cr: 1.1, Glucose 203 AST: 15L; ALT: 20 HgbA1c: 7.[address]: - No acute intracranial abnormality. - Redemonstration of small lacunar infarct in the right lentiform nucleus. - Redemonstration of bilateral proptosis. CTA neck: - No hemodynamically significant stenosis in the major arteries of the neck. CTA head: - No large vessel occlusion or significant stenosis within the intracranial circulation PROBLEM LIST: 1. New Visual Disturbances- return immediately to the emergency room should any new symptoms of TIA or stroke - full coagulation should be resumed as soon as considered safe, probably in another 5-7 days which would be 7-10 days since the colonoscopy. - F/u ophthalmology outpatient. 2. Recent GI Bleed s/p polypectomy/colonoscopy - Maintaining stable HB 3. Diabtes Mellitus- continue home meds 4. Hypertension- continue home meds 5. Hyperlipidemia - contiue homemeds Problem List: 1. Glaucoma 2. Atrial fibrillation 3. TIA (transient ischemic attack) Pain Ratin Pain Location: none Pain Goal: Remain pain free Pain Plan: none Tomorrow's Labs & Rationales: none
--- NOTE | 2017-10-11 10:52 | PN- Att Addend ---
Attending Addendum Attending Brief Note 57M PMH T2DM, HTN, dyslipidemia and right internal capsular stroke with severe weakness of the left lower extremity and complete paralysis of the left upper extremity, recently discharged after being treated for lower GI bleed, with his Eliquis being stopped due to bleed, to be restarted 9 days from now. He was sent to ER by his core setter after complaining of flashing white lights in his vision, described as a strobe light effect, which lasted about 30 minutes and has since resolved. He had no other symptoms and no neurological complaints during this episode. He is currently asymptomatic. His neurological exam is unchanged from prior. BP has been normal, HR 58 with first degree block, CTA head and neck negative. Concern was for TIA in the setting of stopped Eliquis, however no evidence of neurological dysfunction at this time. Plan - Continue observation in telemetry. Patient should not have been a full admission, as he requires a brief workup for flashing lights in his vision, rule out TIA, and outpatient ophthalmology referral - Neurology consult - Continue to hold Eliquis due to GI bleed - Follow cardiology recommendations - Continue home medications - Outpatient opthalmology referral on discharge - DVT PPx
--- NOTE | 2017-10-11 12:45 | Patient Discharge Instructions ---
Discharge Instructions General Discharge Information You were seen/treated for: Flikckering of vision , Previosu GI blood loss admission follow up. You had these procedures: none Watch for these problems: Blurring of vision, Slurring of speech, or any signs of stroke - bleeding - Special Instructions: Please follow-up for mothers helper Dr. Butler within a week of discharge. Please follow-up with Dr. Mcelroy within a week of discharge. Please continue to hold Eliquis for next 9 days(10/20/2017) Please follow-up with eye clinic manager if you developed GI bleed. The patient was advised to return immediately to the emergency room should any new symptoms of TIA or stroke occur. These were detailed to him. Acute Coronary Syndrome Inclusion Criteria At DC or during hospital stay patient has or had the following: ACS DIAGNOSIS No Discharge Core Measures Meds if any: Prescribed or Continued at Discharge Meds if any: NOT Prescribed or Continued at Discharge Congestive Heart Failure Inclusion Criteria At DC or during hospital stay patient has or had the following: CHF DIAGNOSIS No Discharge Core Measures Meds if any: Prescribed or Continued at Discharge Meds if any: NOT Prescribed or Continued at Discharge Cerebrovascular accident Inclusion Criteria At DC or during hospital stay patient has or had the following: CVA/TIA Diagnosis No Discharge Core Measures Meds if any: Prescribed or Continued at Discharge Meds if any: NOT Prescribed or Continued at Discharge Venous thromboembolism Inclusion Criteria VTE Diagnosis No VTE Type NONE VTE Confirmed by (Test) NONE Discharge Core Measures - Per Current guidelines, there needs to be overlap - treatment for the first 5 days of Warfarin therapy. - If discharged on Warfarin prior to 5 days of - overlap therapy, the patient will need to be - assessed for post discharge needs including - *Post discharge parental anticoagulation - *Warfarin and/or parental anticoagulation education - *Follow up date to check INR post discharge At least 5 days overlap therapy as Inpatient No Meds if any: Prescribed or Continued at Discharge Note: Overlap Therapy is Warfarin and Anticoagulant Meds if any: NOT Prescribed or Continued at Discharge
[2017-10-11 14:40] VITALS: BP 102/58
--- NOTE | 2017-10-11 15:58 | Cons- Neurology ---
General Information and HPI Consulting Request Date of Consult: 10/11/17 Requested By: Hal Goode MD Reason for Consult: Prolonged visual disturbance Source of Information: patient, EMS Exam Limitations: no limitations History of Present Illness: This is a 57-year-old man with a prior stroke leaving left hemiparesis as well as a history of atrial fibrillation on Eliquis suffered from a lower GI bleed starting 1 week ago, severe enough to require transfusions, colonic polyps found and clipped 3 days ago. Yesterday morning he awakened with "flashing" visual disturbance affecting both visual flores in both eyes. He was unable to read or identify images on his computer. There was a very mild bifrontal headache associated which she has experienced from time to time but there is no history of prior visual disturbance or migraine. Absolutely no other focal symptoms on the neurologic systems review. Symptoms cleared after about 10-12 hours and have not recurred. History of paroxysmal atrial fibrillation, he is sometimes aware due to rapid palpitations but does not recall these happening in the last few days. Allergies/Medications Allergies: Coded Allergies: morphine (Intermediate, WIERD FEELING 09/23/15) Home Med List: Chlorthalidone 50 MG TABLET 1 TAB PO DAILY HTN (Reported) Dapagliflozin Propanediol (Farxiga) 5 MG TABLET 1 TAB PO DAILY DM (Reported) Docusate Sodium (Colace) 100 MG CAPSULE 1 CAP PO BID constipation Dulaglutide (Trulicity) 1.5 MG/0.5 ML PEN.INJCTR 1 DOSE INJ Q WEEK DM ( Reported) Fenofibrate 160 MG TABLET 1 TAB PO DAILY HLD (Reported) Hydralazine HCl 25 MG TABLET 3 TAB PO BID HTN (Reported) Insulin Detemir (Levemir Flextouch) 100 UNIT/1 ML INSULN.PEN 30 U SC DAILY DIABETES (Reported) Metformin HCl (Glucophage) 1,000 MG TABLET 1 TAB PO BID DM (Reported) Na Phos,M-B/Na Phos,Di-Ba (Fleet Enema) 19 GRAM-7 GRAM/118 ML ENEMA 1 E RC DAILY PRN Constipation (Reported) Niacin (Niaspan) 1,000 MG TAB.ER.24H 1 TAB PO QPM HLD (Reported) Nifedipine (Nifedipine ER) 60 MG TAB.ER.24 1 TAB PO DAILY HTN (Reported) [place]-3 Acid Ethyl Esters (Lovaza) 1 GRAM CAPSULE 2 CAP PO BID SUPPLEMENT ( Reported) Pregabalin (Lyrica) 100 MG CAPSULE 1 CAP PO BID Leg burning/Neuropathy ( Reported) Rosuvastatin Calcium (Crestor) 20 MG TABLET 1 TAB PO DAILY HLD (Reported) Valsartan 160 MG TABLET 1 TAB PO DAILY HTN (Reported) Current Medications: Current Medications Sig/Rey Start time Last Medication Dose Route Stop Time Status Admin Acetaminophen 650 MG Q8P PRN 10/10 2100 AC PO Atorvastatin Calcium 40 MG 1700 10/11 1700 AC PO Chlorthalidone 50 MG DAILY 10/11 899 AC 10/11 PO 0901 Fenofibrate 160 MG DAILY 10/11 899 DC PO Fenofibrate 145 MG DAILY 10/11 899 AC 10/11 PO 0900 Heparin Sodium 5,000 UNIT Q8 10/10 2200 AC (Porcine) SC Hydralazine HCl 75 MG BID 10/10 2102 AC 10/11 PO 0859 Ibuprofen 400 MG Q8P PRN 10/10 2100 CAN PO Insulin Aspart 0 TIDAC 10/12 799 AC 10/11 SC 1211 Insulin Detemir 30 UNITS DAILY 10/11 899 AC 10/11 SC 0901 Losartan Potassium 50 MG DAILY 10/11 899 AC 10/11 PO 0859 Nifedipine 60 MG DAILY 10/11 899 AC 10/11 PO 0902 Pregabalin 100 MG BID 10/10 2103 AC 10/11 PO 0900 Sodium Chloride 1,000 ML ONCE ONE 10/10 1800 DC 10/10 IV 10/11 0039 1809 Review of Systems Review of Systems: On the complete medical ROS the only complaint was aching pain in the left shoulder medial to the shoulder blade. This has been a recurring problem. No current cardiac symptoms, dyspnea, abdominal pain or any further rectal bleeding. 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 Home Services at Home: None Smoking Status: Never Smoked ETOH Use: denies use Illicit Drug Use: denies illicit drug use Exam & Diagnostic Data Vital Signs and I&O Vital Signs Date Time Temp Pulse Resp B/P B/P Pulse O2 O2 Flow FiO2 Mean Ox Delivery Rate 10/11 1440 98.3 62 20 102/58 96 Room Air 10/11 0902 57 120/60 10/11 0859 57 120/60 10/11 0859 57 120/60 10/11 0800 98 Room Air 10/11 0646 98.4 62 18 122/66 98 Room Air 10/10 2313 60 126/58 10/10 2249 97.8 70 18 126/58 99 Room Air 10/10 2243 Room Air 10/10 2025 84 18 147/77 97 Room Air 10/10 1809 76 18 111/55 96 Room Air 10/10 1700 74 18 141/78 99 Room Air Intake & Output 10/11 1600 10/11 0800 08/ 0000 Intake Total 720 120 Output Total Balance 720 120 Intake, Oral 720 120 Patient 276 lb Weight Weight Bed scale Measurement Method Physical Exam: On exam the patient appeared generally well and in no distress. No carotid bruits and no cardiac murmur. No peripheral edema Mental status: Alert, attentive, fully oriented, no language errors, recall and general fund of knowledge seem intact Funduscopic unremarkable Visual flores full acuity reduced but baseline OS, pupils midsize equal round and reactive to light. Eye movements are full and conjugate although there is a left exophoria Facial movement normal bilaterally Facial sensation normal bilaterally Hearing intact bilaterally Uvula elevates midline Tongue protrusion is midline Shoulder shrug symmetric 3/5 proximal left upper extremity weakness with spastic training and development rep of the hand, 4/5 leg power Sensation intact to primary modes Tendon reflexes increased left with a Babinski sign Coordination no ataxia with right hand Gait [testing deferred] Last 48 Hours of Lab Results: Laboratory Tests 10/11 10/10 0605 1326 Chemistry Sodium (137 - 145 mmol/L) 138 138 Potassium (3.5 - 5.1 mmol/L) 3.8 4.1 Chloride (98 - 107 mmol/L) 105 104 Carbon Dioxide (22 - 30 mmol/L) 27 26 Anion Gap (5 - 16) 6 7 BUN (9 - 20 mg/dL) 17 18 Creatinine (0.7 - 1.2 mg/dL) 1.2 1.1 Estimated GFR (>60 ml/min) > 60 > 60 BUN/Creatinine Ratio (7 - 25 %) 14.2 16.4 Glucose (65 - 99 mg/dL) 203 H Calcium (8.4 - 10.2 mg/dL) 9.2 Total Bilirubin (0.2 - 1.3 mg/dL) 0.3 AST (17 - 59 U/L) 15 L ALT (21 - 72 U/L) 20 L Alkaline Phosphatase (< 127 U/L) 38 Troponin I (<0.11 ng/ml) < 0.01 Total Protein (6.3 - 8.2 g/dL) 5.8 L Albumin (3.5 - 5.0 g/dL) 3.4 L Globulin (1.9 - 4.2 gm/dL) 2.4 Albumin/Globulin Ratio (1.1 - 2.2 %) 1.4 TSH (0.270 - 4.200 uIU/mL) 1.750 Free T4 (0.64 - 1.79 ng/dL) 1.46 Coagulation PT (9.4 - 12.5 SEC) 10.1 INR (0.90 - 1.17) 0.93 APTT (25 - 37 SEC) 28 Hematology CBC w Diff NO MAN DIFF REQ NO MAN DIFF REQ WBC (4.8 - 10.8 /CUMM) 7.7 8.1 RBC (4.70 - 6.10 /CUMM) 2.90 L 3.28 L Hgb (14.0 - 18.0 G/DL) 8.3 L 9.2 L Hct (42 - 52 %) 24.8 L 27.9 L MCV (80.0 - 94.0 FL) 85.6 84.9 MCH (27.0 - 31.0 PG) 28.5 28.1 MCHC (33.0 - 37.0 G/DL) 33.3 33.2 RDW (11.5 - 14.5 %) 14.6 H 14.5 Plt Count (130 - 400 /CUMM) 237 278 MPV (7.4 - 10.4 FL) 8.1 8.3 Gran % (42.2 - 75.2 %) 59.5 71.0 Lymphocytes % (20.5 - 51.1 %) 29.3 19.4 L Monocytes % (1.7 - 9.3 %) 6.7 5.8 Eosinophils % (0 - 5 %) 4.0 3.2 Basophils % (0.0 - 2.0 %) 0.5 0.6 Absolute Granulocytes (1.4 - 6.5 /CUMM) 4.6 5.8 Absolute Lymphocytes (1.2 - 3.4 /CUMM) 2.3 1.6 Absolute Monocytes (0.10 - 0.60 /CUMM) 0.5 0.5 Absolute Eosinophils (0.0 - 0.7 /CUMM) 0.3 0.3 Absolute Basophils (0.0 - 0.2 /CUMM) 0 0 Imaging/Other Studies: CT head: - No intracranial hemorrhage or large acute infarction. CTA neck: - No hemodynamically significant stenosis in the major arteries of the neck. CTA head: - No large vessel occlusion or significant stenosis within the intracranial circulation. 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 No thrombus visible by the time CTA was completed, therefore not candidate for endovascular clot extraction symptoms have improved to baseline. The patient is at risk for recurring thromboembolic events particularly if he returns to atrial fibrillation, currently the monitor shows some sinus rhythm with first-degree AV block. He is on nifedipine. Anticoagulation is relatively contraindicated due to the bleeding ulcers and polyps found on his colonoscopy 3 days ago. Recommendations: The patient was advised to return immediately to the emergency room should any new symptoms of TIA or stroke occur. These were detailed to him. Full anticoagulation should be resumed as soon as considered safe, probably in another 5-7 days which would be 7-10 days since the colonoscopy. Consult Acknowledgment - Thank you for your consult request.
--- NOTE | 2017-10-11 16:56 | ELECTROENCEPHALOGRAM REPORT ---
Electroencephalogram Report Electroencephalogram Results Date of service: 10/11/17 Attending MD: Hal Goode MD [employer] Lettering Machine Operator: Barron Garcia EEG Number: [id number] Test Utilizes: 10-20 system, 21 lead 18 channel digital recording Pertinent Hx/Physical/Neuro Findings/Clin Diagnosis: transient vision loss Inpatient Medications: Current Medications Sig/Rey Start time Last Medication Dose Route Stop Time Status Admin Acetaminophen 650 MG Q8P PRN 10/10 2100 AC PO Atorvastatin Calcium 40 MG 1700 10/11 1700 AC PO Chlorthalidone 50 MG DAILY 10/11 899 AC 10/11 PO 0901 Fenofibrate 160 MG DAILY 10/11 899 DC PO Fenofibrate 145 MG DAILY 10/11 899 AC 10/11 PO 0900 Heparin Sodium 5,000 UNIT Q8 10/10 2200 AC (Porcine) SC Hydralazine HCl 75 MG BID 10/10 210 AC 10/11 PO 0859 Ibuprofen 400 MG Q8P PRN 10/10 2100 CAN PO Insulin Aspart 0 TIDAC 10/12 799 AC 10/11 SC 1211 Insulin Detemir 30 UNITS DAILY 10/11 899 AC 10/11 SC 0901 Losartan Potassium 50 MG DAILY 10/11 899 AC 10/11 PO 0859 Nifedipine 60 MG DAILY 10/11 899 AC 10/11 PO 0902 Pregabalin 100 MG BID 10/10 210 AC 10/11 PO 0900 Sodium Chloride 1,000 ML ONCE ONE 10/10 1800 DC 10/10 IV 10/11 0039 1809 Interpretation: The background is composed of well-formed moderate amplitude posterior 10 Hz alpha which attenuates on eye opening. Low voltage faster beta activity is intermixed and seen best in the frontal regions. There are no focal, lateralized or epileptiform abnormalities. Hyperventilation and photic stimulation were performed and at no additional information Impression: Normal EEG in the states of wakefulness and drowsiness. No focal or epileptiform abnormalities identified.
--- NOTE | 2017-10-11 18:12 | Discharge Summary ---
Visit Information Visit Dates Admission Date: 10/10/17 Discharge Date: 10/11/2017 Hospital Course Course Attending Physician: Hal Goode MD Primary Care Physician: Chelsi Schwartz APRN Hospital Course: Patient is a 57 year old male with past medical history of CVA with residual left upper extremity weakness in 2008, CAD s/p clean cath in 2007, history of atrial fibrillation on Eliquis, DM, HTN, HLD, right sided nephrolithiasis s/p lithotripsy 2010 admitted recently for intermittent bloody stools and discharged 10/09/17. Patient recently had a colonoscopy from Dr. Cuevas on 09/25/17 with removal of 12 polyps of tubular adenoma pathology and demonstration of mild diverticulosis. Eliquis was advised to be held 2 weeks after discharge at the discretion of Dr. Mcelroy (Cardiology) and Dr. Cuevas (GI). Patient had chest pain at that time with negative troponins. Recently risk stratified with a stress test that was negative for ischemia with recent ECHO EF 60%. On this admission, patient is presenting one day after discharge after being seen by Dr. Mcelroy for complaints of eyes in "strobing and flickering" complaining of seeing flashing lights this morning with associated headache.Patient states the event started at 9AM and has been present until his arrival to the ED (12 hours) . He states he could not see or read properly during this time. He claims he has a history of Glaucoma (unsure of type) that was diagnosed 5 years ago. Patient last seen his ophthomologist 3 years ago and was supposed to follow up yearly. We admitted the patient to telemetry floor. We obtained a neurologic and ophthalmologic consultation. Follow-up CT of the head, CT of the neck and head shows no any acute infarction or clot. His symptoms got improved overnight. His blood workup did not show any evidence of acute blood loss. We discharged him with the same medication as he was on. We advised him to follow-up with nursing home assistant as an outpatient. We also advised him to return to emergency department if he develops new symptoms of TIA and stroke. Allergies: Coded Allergies: morphine (Intermediate, WIERD FEELING 09/23/15) Disposition Summary Disposition Principal Diagnosis: Possible TIA, no thrombus on CTA. Additional Diagnosis: hypertension, hyperlipidemia, lower GI bleed status post colonoscopy on you on 10/08, CVA in 2009 with prominent left upper and lower extremity weakness, glaucoma, Discharge Disposition: home or self care Discharge Instructions General Discharge Information Code Status: Full Code Patient's Diet: Heart healthy diet Patient's Activity: As tolerated. Take all fall precaution Follow-Up Instructions/Appts: Please follow-up with your primary care provider within a week of discharge Please follow-up with your nursing home assistant within a week of discharge Please follow-up with the neurologist or come back to emergency department if he started having strokelike symptoms Please take the medication as advised Please follow-up with Dr. Mcelroy within a week of discharge. Please continue to hold Eliquis for next 9 days(10/20/2017) Please follow-up with fans clerk if you developed GI bleed. Medications at Discharge Discharge Medications: Continue taking these medications: Pregabalin (Lyrica) 100 MG CAPSULE 1 Capsule ORAL TWICE DAILY Comments: Last Taken: 10/11/17 Time: 09:00 AM Niacin (Niaspan) 1,000 MG TAB.ER.24H 1 Tablet ORAL Every night Rosuvastatin Calcium (Crestor) 20 MG TABLET 1 Tablet ORAL DAILY Comments: GIVEN LIPITOR IN HOSPITAL Last Taken: 10/11/17 Time: 17:22 PM Fenofibrate (Fenofibrate) 160 MG TABLET 1 Tablet ORAL DAILY Comments: Last Taken: 10/11/17 Time: 09:00 AM [place]-3 Acid Ethyl Esters (Lovaza) 1 GRAM CAPSULE 2 Capsule ORAL TWICE DAILY Comments: NOT GIVEN IN HOSPITAL Insulin Detemir (Levemir Flextouch) 100 UNIT/1 ML INSULN.PEN 30 Units SC DAILY Qty = 15 Comments: Last Taken: 10/11/17 Time: 09:00 AM Docusate Sodium (Colace) 100 MG CAPSULE 1 Capsule ORAL TWICE DAILY Qty = 60 Comments: NOT GIVEN IN HOSPITAL Metformin HCl (Glucophage) 1,000 MG TABLET 1 Tablet ORAL TWICE DAILY Comments: NOT GIVEN IN HOSPITAL Nifedipine (Nifedipine ER) 60 MG TAB.ER.24 1 Tablet ORAL DAILY Comments: Last Taken: 10/11/17 Time: 09:00 AM Valsartan (Valsartan) 160 MG TABLET 1 Tablet ORAL DAILY Comments: GIVEN [place] IN HOSPITAL Last Taken: 10/11/17 Time: 09:00 AM Hydralazine HCl (Hydralazine HCl) 25 MG TABLET 3 Tablet ORAL TWICE DAILY Comments: Last Taken: 10/11/17 Time: 09:00 AM Chlorthalidone (Chlorthalidone) 50 MG TABLET 1 Tablet ORAL DAILY Comments: Last Taken: 10/11/17 Time: 09:00 AM Dapagliflozin Propanediol (Farxiga) 5 MG TABLET 1 Tablet ORAL DAILY Comments: NOT GIVNE IN HOSPITAL Dulaglutide (Trulicity) 1.5 MG/0.5 ML PEN.INJCTR 1 Dose INJECTABLE Q WEEK Comments: NOT GIVEN IN HOSPITAL Na Phos,M-B/Na Phos,Di-Ba (Fleet Enema) 19 GRAM-7 GRAM/118 ML ENEMA 1 Enema RECTAL DAILY as needed for Constipation Comments: NOT GIVEN IN HOSPITAL Copies To: Gloria ASTORGA,Victor Manuel Lomas; Chelsi Schwartz APRN; Lilibeth ASTORGA PHD,Yovany Martell Attending MD Review Statement Documenting Attending: Rupa ASTORGA,Hal
== END 2017-10-11 18:18 | disposition home health service (06) ==
LOC: ERH 12:58 → ERHI 20:21 → 1NO 20:21 → ENRESERV 21:14 → ENTRNSPT 22:08 → 1NO 22:28 → CMPTRNSPT 22:43 → 1NO 10-11 10:06 → CMPBEDREQ 10-11 11:38 → ENPENDDIS 10-11 16:16 → ENTRNSPT 10-11 17:48 → 1NO 10-11 18:18 → CMPTRNSPT 10-11 18:28
PROVIDERS: Internal Medicine; Physician Assistant Medical
DX: H53.9 Unspecified visual disturbance (principal); Z68.41 Body mass index [BMI] 40.0-44.9, adult; E66.3 Overweight; I69.334 Monoplegia of upper limb following cerebral infarction affecting left non-dominant side; I48.0 Paroxysmal atrial fibrillation; Z79.01 Long term (current) use of anticoagulants; I10 Essential (primary) hypertension; E11.9 Type 2 diabetes mellitus without complications; Z79.4 Long term (current) use of insulin; Z79.84 Long term (current) use of oral hypoglycemic drugs; I25.10 Atherosclerotic heart disease of native coronary artery without angina pectoris; E78.5 Hyperlipidemia, unspecified; Z87.442 Personal history of urinary calculi; H40.9 Unspecified glaucoma; K57.90 Diverticulosis of intestine, part unspecified, without perforation or abscess without bleeding; J44.9 Chronic obstructive pulmonary disease, unspecified; M16.11 Unilateral primary osteoarthritis, right hip
CPT/HCPCS: 1NP; 6020; 36592; 82436; 93005; 93010; 95816; G0378; J1644

== ENCOUNTER 2017-10-16 14:58 | Emergency (ER) | payer OTHER, MEDICARE ==
[~2017-10-16] VITALS: Ht 172.7 cm; Wt 122.5 kg
[2017-10-16 15:40] LABS: ABSOLUTE GRANULOCYTE CT 5.8 /CUMM (1.4-6.5); ABSOLUTE MONOCYTE COUNT 0.5 /CUMM (0.10-0.60); RBC DISTRIBUTION WIDTH 14.4 % (11.5-14.5)
[2017-10-16 15:48] LABS: ABSOLUTE BASOPHIL COUNT 0.1 /CUMM (0.0-0.2); ABSOLUTE EOSINOPHIL COUNT 0.2 /CUMM (0.0-0.7); ABSOLUTE LYMPH COUNT 1.6 /CUMM (1.2-3.4); BASOPHIL % 0.7 % (0.0-2.0); EOSINOPHIL % 2.9 % (0-5); GRANULOCYTE % 70.9 % (42.2-75.2); HEMATOCRIT 29.6 % (42-52); MEAN CORPUSCULAR HGB CONC 32.7 G/DL (33.0-37.0); MEAN CORPUSCULAR VOLUME 82.3 FL (80.0-94.0); MEAN PLATELET VOLUME 7.5 FL (7.4-10.4); PLATELET COUNT 273 /CUMM (130-400); WHITE BLOOD CELL COUNT 8.2 /CUMM (4.8-10.8)
--- NOTE | 2017-10-16 15:56 | RADIOLOGY REPORT ---
EXAMINATION: CHEST 2 VIEWS CLINICAL INFORMATION: Weakness. Infection. COMPARISON: 02/10/2015. TECHNIQUE: PA and lateral views of the chest were obtained. FINDINGS: The cardiac silhouette is not enlarged. The mediastinal and hilar contours are unremarkable. There are neither pleural effusions nor pneumothoraces. There are no consolidations. The osseous structures are stable. IMPRESSION: No evidence for acute disease.
--- NOTE | 2017-10-16 16:51 | ED GENERAL ADULT ---
History of Present Illness General Chief Complaint: General Adult Stated Complaint: DIZZY WEAKNESS Source: patient, old records Exam Limitations: no limitations Vital Signs & Intake/Output Vital Signs & Intake/Output Vital Signs Date Time Temp Pulse Resp B/P B/P Pulse O2 O2 Flow FiO2 Mean Ox Delivery Rate 10/16 2006 78 17 113/64 96 Room Air 10/16 1832 97 Room Air 10/16 1812 98.5 76 18 119/60 99 10/16 1537 97.1 66 18 112/66 98 Room Air Allergies Coded Allergies: morphine (Intermediate, WIERD FEELING 09/23/15) Reconcile Medications Chlorthalidone 50 MG TABLET 1 TAB PO DAILY HTN (Reported) Dapagliflozin Propanediol (Farxiga) 5 MG TABLET 1 TAB PO DAILY DM (Reported) Docusate Sodium (Colace) 100 MG CAPSULE 1 CAP PO BID constipation Dulaglutide (Trulicity) 1.5 MG/0.5 ML PEN.INJCTR 1 DOSE INJ Q WEEK DM ( Reported) Fenofibrate 160 MG TABLET 1 TAB PO DAILY HLD (Reported) Hydralazine HCl 25 MG TABLET 3 TAB PO BID HTN (Reported) Insulin Detemir (Levemir Flextouch) 100 UNIT/1 ML INSULN.PEN 30 U SC DAILY DIABETES (Reported) Metformin HCl (Glucophage) 1,000 MG TABLET 1 TAB PO BID DM (Reported) Na Phos,M-B/Na Phos,Di-Ba (Fleet Enema) 19 GRAM-7 GRAM/118 ML ENEMA 1 E RC DAILY PRN Constipation (Reported) Niacin (Niaspan) 1,000 MG TAB.ER.24H 1 TAB PO QPM HLD (Reported) Nifedipine (Nifedipine ER) 60 MG TAB.ER.24 1 TAB PO DAILY HTN (Reported) [place]-3 Acid Ethyl Esters (Lovaza) 1 GRAM CAPSULE 2 CAP PO BID SUPPLEMENT ( Reported) Pregabalin (Lyrica) 100 MG CAPSULE 1 CAP PO BID Leg burning/Neuropathy ( Reported) Rosuvastatin Calcium (Crestor) 20 MG TABLET 1 TAB PO DAILY HLD (Reported) Valsartan 160 MG TABLET 1 TAB PO DAILY HTN (Reported) Triage Note: PT COMPLAINS OF FEELING WEAK, DIZZY THAT STARTED THIS AM, WAS DISCHARGED FROM HOSPITAL SUNDAY AFTER BEING ADMITTED FOR BLOOD TRANSFUSION FOR ANEMIA. STATES THAT HE HAD LOW GI BLEED, DENIES BLOOD IN STOOL NOW. WAS TOLD TO RETURN IF HE STARTED TO FEEL WEAK AGAIN. SKIN PALE. DENIES CP/SOB Triage Nurses Notes Reviewed? yes HPI: This is a 57-year-old male with history of hypertension, hyperlipidemia, stroke with chronic left-sided deficits, on chronic Eliquis, recent GI bleed requiring admission and multiple transfusions of packed red blood cells in the setting of colonoscopy with polyp removal, recent admission for TIA in the setting of anemia presenting to the emergency department 2 days following discharge with ongoing malaise and weakness with report of "sleeping all day ". Patient states that he has no acute pain or discomfort but is very tired and unable to perform his normal activities of daily living. He reports a poor appetite, but has tolerated some p.o, most recently corned beef at home. He states that he restarted his Eliquis yesterday and noted he had one loose bowel movement earlier today which was neither black nor bloody. He denies any abdominal pain nausea or vomiting. He has had no fevers or chills. (Sean Martinez MD) Past History Travel History Traveled to [place] past 21 day No Medical History Any Pertinent Medical History? 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 No (Sean Martinez MD) Review of Systems Review of Systems Constitutional: Reports: malaise, weakness, unexplained weight loss. Denies: chills, diaphoresis, fever. EENTM: Reports: no symptoms. Denies: blurred vision, double vision, visual changes. Respiratory: Denies: cough, hemoptysis, orthopnea, short of breath, sputum production, stridor, wheezing. Cardiovascular: Denies: chest pain, edema, orthopena, palpitations, peripheral edema, syncope. GI: Reports: diarrhea. Denies: abdominal pain, bloating, constipation, distention, bowel incontinence, melena, nausea, bloody stool, changes in stool, vomiting, steatorrhea. Genitourinary: Reports: no symptoms. Musculoskeletal: Reports: no symptoms. Skin: Reports: no symptoms. Neurological/Psychological: Reports: no symptoms. Hematologic/Endocrine: Reports: no symptoms. Comments Patient reports a 50 pound unexpected weight loss over the past several months. (Sean Martinez MD) Physical Exam Physical Exam General Appearance: well developed/nourished, no apparent distress, alert, comfortable, obese Head: atraumatic, normal appearance Comments: Obese middle-aged male, no acute distress. Vision is baseline very poor in the left eye with intact extraocular movements bilaterally. Mildly proptotic to bilateral eyes, which is also baseline. Poor dentition at baseline. HEENT exam otherwise benign. Trachea midline, no JVD, cardio pulmonary exam within normal limits with no tachycardia, murmurs, rubs, gallops. Lungs are clear bilaterally and into the bases but good air movement. Abdominal exam is benign with soft, nontender, nondistended belly. Rectal exam is unremarkable with soft, guaiac negative stool. Bilateral upper and lower extremity exam within normal limits with intact pulse and sensation. Patient able to ambulate without difficulty. He does have left arm contracture secondary to old stroke but has intact sensation to that extremity. He is alert and oriented 4, cranial nerves II through XII intact. No dysdiadochokinesis, no dysmetria, no change to language or cognitive ability in my exam. Core Measures ACS in differential dx? No CVA/TIA Diagnosis: No Sepsis Present: No Sepsis Focused Exam Completed? No (Sean Martinez MD) Progress Differential Diagnoses I considered the following diagnoses in my evaluation of the patient: Some mild concern for metabolic derangement, ongoing GI bleeding/symptomatic anemia, lower suspicion for acute infectious process/occult infection. Very low suspicion for ACS given lack of chest pain, shortness of breath, diaphoresis, nausea, other suggestive symptoms. Plan of Care: Orders Procedure Date/time Status TYPE & SCREEN (NOT X-MATCH) 10/16 1747 Complete TROPONIN LEVEL 10/16 1520 Complete MAGNESIUM 10/16 1520 Complete COMPREHENSIVE METABOLIC PANEL 10/16 1520 Complete CBC WITHOUT DIFFERENTIAL 10/16 1520 Complete EKG 10/16 1520 Active Laboratory Tests 10/16/17 1533: Anion Gap 8, Estimated GFR 52 L, BUN/Creatinine Ratio 14.3, Glucose 188 H, Calcium 9.1, Magnesium 2.0, Total Bilirubin 0.3, AST 12 L, ALT 20 L, Alkaline Phosphatase 40, Troponin I < 0.01, Total Protein 6.2 L, Albumin 3.8, Globulin 2.4, Albumin/Globulin Ratio 1.6, CBC w Diff NO MAN DIFF REQ, RBC 3.60 L, MCV 82.3, MCH 27.0, MCHC 32.7 L, RDW 14.4, MPV 7.5, Gran % 70.9, Lymphocytes % 19.1 L, Monocytes % 6.4, Eosinophils % 2.9, Basophils % 0.7, Absolute Granulocytes 5.8, Absolute Lymphocytes 1.6, Absolute Monocytes 0.5, Absolute Eosinophils 0.2, Absolute Basophils 0.1 10/16/17 1520: Urine Color Cancelled, Urine Clarity Cancelled, Urine pH Cancelled, Ur Specific [place] Cancelled, Urine Protein Cancelled, Urine Ketones Cancelled, Urine Nitrite Cancelled, Urine Bilirubin Cancelled, Urine Urobilinogen Cancelled, Ur Leukocyte Esterase Cancelled, Ur Microscopic Cancelled, Urine Hemoglobin Cancelled, Urine Glucose Cancelled Labs are significant for a normocytic anemia which is actually improved from prior. Given that the patient has no urinary symptoms, UA is canceled. Creatinine appears about baseline at 1.4. Patient symptoms moderately improved with IV fluids, 1000 mL's of normal saline. Patient well-appearing on reassessment. He wishes to be discharged home at this time. I advised the patient that he may still be suffering from the sequela of ongoing anemia and advised him to take supplements of iron, patient states he is already prescribed this medication and will continue to take it at home. In terms of recurrence of GI bleed, the patient does not have any episodes of GI bleed, belly pain, significant change in vital signs while in the emergency department. Patient is ultimately discharged home with his live-in girlfriend with strict return precautions and plan to follow-up with outpatient provider. Initial ED EKG: normal sinus rhythm, no ST T wave changes (Sean Martinez MD) Departure Departure Time of Disposition: 2020 Disposition: HOME OR SELF CARE Condition: Stable Clinical Impression Primary Impression: Anemia Referrals: Chelsi Schwartz APRN (PCP/Family) Additional Instructions: Thank you for coming to [facility] today. As we discussed, is very important for you to follow-up with your primary doctor and take all medications as prescribed. Please return to the emergency department if you feel any worse, or fail to feel any better. If you see any evidence of bleeding when you go to the bathroom or change in the color of your stool, call 911 for immediate transport to the hospital. Also return if you feel any other concerning symptoms such as chest pain or shortness of breath or abdominal pain or nausea or vomiting or diarrhea fever or chills. Departure Forms: Customer Survey General Discharge Information (Sean Martinez MD) Resident Co-Sign Statement Statement: ED Attending supervision documentation- [] I saw and evaluated the patient. I have also reviewed all the pertinent lab results and diagnostic results. I agree with the findings and the plan of care as documented in the Resident's documentation. [x] I have reviewed the ED Record and agree with the Resident's documentation. [] Additions or exceptions (if any) to the Resident's note and plan are summarized below: [] (Adriano Harley DO) Critical Care Note Critical Care Note Critical Care Time: non-applicable (Sean Martinez MD)
[2017-10-16 20:07] VITALS: BP 113/64
== END 2017-10-16 20:45 ==
LOC: ERH 14:58
PROVIDERS: Physician Assistant
DX: D64.9 Anemia, unspecified (principal)
CPT/HCPCS: 71046; 93005; 93010